=== PATIENT | female | born 1960 | race Caucasian/White ===

== ENCOUNTER → 2016-10-08 | Outpatient (CLI) | payer BC ==
[~2016-10-08] MED LIST: IMD/2 PO; ONDA4TAB10 SL; RQP/2 PO
--- NOTE | 2016-10-08 13:25 | MAMMOGRAPHY REPORT ---
BILATERAL DIGITAL SCREENING MAMMOGRAM TOMOSYNTHESIS WITH CAD: 10/08/2016 CLINICAL HISTORY: Routine screening. Patient has no complaints. TECHNIQUE: Breast tomosynthesis in addition to standard 2D mammography was performed. Current study was also evaluated with a Computer Aided Detection (CAD) system. COMPARISON: Comparison is made to exams dated: 02/11/2015 mammogram, 02/01/2013 mammogram, 02/20/2014 m ammogram, 02/14/2010 mammogram - [facility], and 09/20/2008. BREAST COMPOSITION: There are scattered areas of fibroglandular density in both breasts. FINDINGS: No suspicious masses, calcifications, or areas of architectural distortion are noted in e ither breast. There has been no significant interval change compared to prior exams. A biopsy marke r clip is again noted in the right upper outer quadrant. Benign-appearing round circumscribed mass in the left upper outer quadrant is stable compared to multiple prior exams. IMPRESSION: ACR BI-RADS CATEGORY 2: BENIGN There is no mammographic evidence of malignancy. A 1 year screening mammogram is recommended. The p atient will receive written notification of the results. Approximately 10% of breast cancers are not detected with mammography. A negative mammographic repor t should not delay biopsy if a clinically suggestive mass is present. Acacia Odonnell M.D. /:10/08/2016 07:46:56 Junk Dealer: Sia Blanc RT(R)(M), [facility] letter sent: Normal 1/2 BI-RADS Code: ACR BI-RADS Category 2: Benign
== END | disposition home or self-care (01) ==
LOC: C.MAMM 07:19
PROVIDERS: ATTEND Family Medicine
DX: Z12.31 Encounter for screening mammogram for malignant neoplasm of breast (principal)

== ENCOUNTER 2017-09-09 16:13 | Emergency (ER) | payer BC, OTHER ==
[~2017-09-09] VITALS: Ht 154.9 cm; Wt 83.1 kg
[~2017-09-09 16:13] MED LIST changes: -ONDA4TAB10 SL
[2017-09-09 16:24] VITALS: TEMP 36.8
[2017-09-09] MEDS ORDERED: KETOROLAC TROMETHAMINE 30 MG/ML VIAL IV STA (18:05)
[2017-09-09] MEDS ORDERED: ACETAMINOPHEN 500 MG TAB PO STA (18:05)
[2017-09-09] MEDS ORDERED: DiphenhydrAMINE HCL 50 MG/ML VIAL IV STA ×2 (18:06→18:56)
[2017-09-09] MEDS ORDERED: METOCLOPRAMIDE HCL INJ 5 MG/ML 2 ML VIAL IV. STA (18:06)
[2017-09-09] MEDS ORDERED: LISI-461 PO (18:10)
[2017-09-09] MEDS ORDERED: MULT-190 PO (18:11)
[2017-09-09] MEDS ORDERED: CALC500T83 PO (18:11)
[2017-09-09] MEDS ORDERED: ASCA500 PO (18:11)
[2017-09-09] MEDS ORDERED: OMEG10007 PO (18:11)
[2017-09-09] MEDS ORDERED: MULT-506 PO (18:11)
[2017-09-09] MEDS ORDERED: VITA1TAB4 PO (18:11)
[2017-09-09] MEDS ORDERED: CHOL1000 PO (18:11)
--- NOTE | 2017-09-09 18:30 | EMERGENCY ROOM VISIT NOTE ---
History Report prepared by El: Juju Gr Under the Supervision of: Dr. Renzo Estrada M.D. First contact with patient: 17:55 Chief Complaint: NEURO SYMPTOMS Stated Complaint: NUMBNESS IN LT SIDE FACE/HAND,CONGESTION HEAD PAIN History of Present Illness The patient is a 57 year old female with a past medical history of hypertension, restless leg syndrome, and migraines who presents to the ED with a cc of worsening neurological symptoms beginning yesterday morning. The patient states that she has had congestion for 10 days and taken Prednisone and a Z-pack. She reports that she started having numbness and tingling in her hands that has since moved to her face. She states that she called her PCP who told her to come to the ED to make sure she wasn't having a stroke. Positive neck pain, shortness of breath, bright light sensitivity with her vision, and heaviness in her chest. Negative chest pain, recent travel, history of a PE or DVT, smoking, and taking Aspirin. She notes a family history of stroke and coronary artery disease. Source of History: patient Onset: yesterday morning Position: other (global) Quality: other (neurological) Timing: worsening Associated Symptoms: + neck pain, + SOB, + numbness, No chest pain Note: The patient complains of tingling, congestion, bright light sensitivity with her vision, and heaviness in her chest. The patient denies recent travel, history of a PE or DVT, smoking, and taking Aspirin. Review of Systems See HPI for pertinent positives and negatives. A total of ten systems were reviewed and were otherwise negative. Past Medical & Surgical Medical Problems: (1) Hypertension (2) Migraine (3) Restless leg syndrome Surgical Problems: (1) History of delivery (2) Hx of tubal ligation Family History Cancer Diabetes mellitus Heart disease Hypertension Stroke Social History Smoking Status: Never Smoker Alcohol Use: none Marital Status: Housing Status: lives with significant other Occupation Status: employed Current/Historical Medications Scheduled Amoxicillin & Pot Clavulanate (Augmentin 875-125 mg), 1 TAB PO BID Ascorbic Acid (Vitamin C), 500 MG PO DAILY Calcium (Calcium), 500 MG PO DAILY Cholecalciferol (Vitamin D3), 1,000 INTER.UNIT PO DAILY Fish Oil ([place]-3), 1 CAP PO DAILY Lisinopril (Lisinopril), 10 MG PO QAM Multivitamin (Multivitamin), 1 TAB PO DAILY Ocuvite Preservision (Ocuvite Preservision), 1 TAB PO DAILY Ropinirole Hydrochloride (Requip), 2.5 MG PO HS Vitamin E (Vitamin E), 400 UNITS PO DAILY Allergies Coded Allergies: Sulfa Antibiotics (Unverified Allergy, Unknown, UNKNOWN, 09/09/17) Physical Exam Vital Signs Date Time Temp Pulse Resp B/P (MAP) Pulse Ox O2 Delivery O2 Flow Rate FiO2 09/09/17 21:35 79 18 117/74 100 Room Air 09/09/17 20:35 89 09/09/17 20:20 93 22 163/87 98 09/09/17 18:45 100 Room Air 09/09/17 18:43 80 20 144/109 100 Room Air 09/09/17 16:24 36.8 84 17 168/90 97 Room Air Physical Exam GENERAL: Awake, alert, well-appearing, NAD HENT: Normocephalic, atraumatic. EYES: Normal conjunctiva. Sclera non-icteric. NECK: Supple. No nuchal rigidity. FROM. RESPIRATORY: CTAB, no rhonchi, wheezing, crackles CARDIAC: RRR, no MRG ABDOMEN: Soft, NTND, BS+ MSK: No chest wall TTP, no LE edema NEURO: CN 2-12 intact, 5/5 upper and lower extremity strength, no dysmetria, no drift, good finger to nose, no sensory deficits. Trace tinging in left hand. SKIN: No rash or jaundice noted. Medical Decision & Procedures ER Provider Diagnostic Interpretation: Radiology results as stated below per my review and radiologist interpretation: CHEST ONE VIEW PORTABLE CLINICAL HISTORY: EVALUATE WEAKNESS COMPARISON STUDY: Chest radiograph June 29, 2016. FINDINGS: There is no pneumothorax or pleural effusion. There is no consolidation or evidence of pulmonary edema. Cardiomediastinal silhouette is unremarkable. IMPRESSION: No acute cardiopulmonary findings. Electronically signed by: Shreyas De Luna M.D. 09/09/2017 6:33 PM Dictated Date/Time: 09/09/2017 6:[address] OF THE HEAD WITHOUT CONTRAST CLINICAL HISTORY: Weakness. Left-sided numbness. COMPARISON STUDY: No previous studies for comparison. CT DOSE: 712.55 mGy.cm TECHNIQUE: Helical axial images of the head were obtained without IV contrast. Automated exposure control was utilized for the study. A dose lowering technique was utilized adhering to the principles of ALARA. FINDINGS: No acute intracranial hemorrhage, midline shift or mass effect is present. Brain volume is normal. The ventricular system is normal. The basilar cisterns are patent. There are no extra-axial collections. Freeman-white differentiation is maintained. There are no findings to suggest acute dural sinus thrombosis or acute territorial infarct. There are no significant calvarial abnormalities. Mastoid air cells are clear. There is moderate mucosal thickening of the bilateral maxillary sinuses with air-fluid levels. IMPRESSION: 1. No acute intracranial findings. 2. Bilateral maxillary sinusitis, possibly acute. Electronically signed by: Shreyas De Luna M.D. 09/09/2017 8:36 PM Dictated Date/Time: 09/09/2017 8:32 PM Laboratory Results 09/09/17 18:30 Red Blood Count 5.05, Mean Corpuscular Volume 85.5, Mean Corpuscular Hemoglobin 29.7, Mean Corpuscular Hemoglobin Concent 34.7, Mean Platelet Volume 10.4, Neutrophils (%) (Auto) 46.0, Lymphocytes (%) (Auto) 46.5, Monocytes (%) (Auto) 5.4, Eosinophils (%) (Auto) 1.2, Basophils (%) (Auto) 0.3, Neutrophils # (Auto) 4.55, Lymphocytes # (Auto) 4.61, Monocytes # (Auto) 0.54, Eosinophils # (Auto) 0.12, Basophils # (Auto) 0.03 09/09/17 18:30 Test 09/09/17 18:30 White Blood Count 9.91 K/uL (4.8-10.8) Red Blood Count 5.05 M/uL (4.2-5.4) Hemoglobin 15.0 g/dL (12.0-16.0) Hematocrit 43.2 % (37-47) Mean Corpuscular Volume 85.5 fL (80-100) Mean Corpuscular Hemoglobin 29.7 pg (25-34) Mean Corpuscular Hemoglobin Concent 34.7 g/dl (32-36) Platelet Count 270 K/uL (130-400) Mean Platelet Volume 10.4 fL (7.4-10.4) Neutrophils (%) (Auto) 46.0 % Lymphocytes (%) (Auto) 46.5 % Monocytes (%) (Auto) 5.4 % Eosinophils (%) (Auto) 1.2 % Basophils (%) (Auto) 0.3 % Neutrophils # (Auto) 4.55 K/uL (1.4-6.5) Lymphocytes # (Auto) 4.61 K/uL (1.2-3.4) Monocytes # (Auto) 0.54 K/uL (0.11-0.59) Eosinophils # (Auto) 0.12 K/uL (0-0.5) Basophils # (Auto) 0.03 K/uL (0-0.2) RDW Standard Deviation 42.1 fL (36.4-46.3) RDW Coefficient of Variation 13.6 % (11.5-14.5) Immature Granulocyte % (Auto) 0.6 % Immature Granulocyte # (Auto) 0.06 K/uL (0.00-0.02) Anion Gap 5.0 mmol/L (3-11) Est Creatinine Clear Calc Drug Dose 62.4 ml/min Estimated GFR () 75.6 Estimated GFR (Non- 65.2 BUN/Creatinine Ratio 18.0 (10-20) Calcium Level 10.0 mg/dl (8.5-10.1) Phosphorus Level 3.5 mg/dl (2.5-4.9) Magnesium Level 2.2 mg/dl (1.8-2.4) Troponin I < 0.015 ng/ml (0-0.045) Pro-B-Type Natriuretic Peptide 45 pg/ml (0-900) Lyme Disease IgG Antibody NEG (NEG) Lyme Disease IgM Antibody NEG (NEG) Laboratory results reviewed by me Medications Administered Medications (Trade) Dose Ordered Sig/Basil Route Start Time Stop Time Status Last Admin Dose Admin Ketorolac Tromethamine (Toradol Inj) 30 mg NOW STAT IV 09/09/17 18:05 09/09/17 18:07 DC 09/09/17 18:39 30 MG Acetaminophen (Tylenol Tab) 1,000 mg NOW STAT PO 09/09/17 18:05 09/09/17 18:07 DC 09/09/17 18:38 1,000 MG Diphenhydramine HCl (Benadryl Inj) 25 mg NOW STAT IV 09/09/17 18:06 09/09/17 18:07 DC 09/09/17 18:38 25 MG Metoclopramide HCl (Reglan Inj) 10 mg NOW STAT IV. 09/09/17 18:06 09/09/17 18:07 DC 09/09/17 18:39 10 MG Diphenhydramine HCl (Benadryl Inj) 25 mg NOW STAT IV 09/09/17 18:56 09/09/17 18:57 DC 09/09/17 19:01 25 MG Ropinirole HCl (Requip Tab) 1.5 mg ONE STAT PO 09/09/17 19:20 09/09/17 19:21 DC 09/09/17 19:45 1.5 MG Amoxicillin/ Clavulanate Potassium (Augmentin Tab) 875 mg NOW ONCE PO 09/09/17 21:00 09/09/17 21:01 DC 09/09/17 21:34 875 MG ECG Indication: SOB/dyspnea Rate (beats per minute): 100 Rhythm: normal sinus Findings: other (normal axis, normal intervals, no STS or TWI changes) Change: Patient's electrocardiogram interpreted by me. ED Course 1757: The patient was evaluated in room C12B. A complete history and physical exam was performed. 2104: I reevaluated the patient. Discussed results and discharge instructions: She verbalized understanding and agreement. The patient is ready for discharge. Medical Decision The patient is a 57 year old female with a past medical history of hypertension, restless leg syndrome, and migraines who presents to the ED with a cc of worsening neurological symptoms beginning yesterday morning. Differential diagnosis: Etiologies such as metabolic, infection, hypo/hyperglycemia, electrolyte abnormalities, cardiac sources, intracerebral event, toxicologic, neurologic, infections, reactive airway disease, pneumonia, pneumothorax, COPD, CHF, cardiac ischemia, pulmonary embolism, musculoskeletal, gastrointestinal, as well as others were entertained. Patient was seen and evaluated the bedside. Patient is a prior history of hypertension and was referred here given her complaints of tingling in her left face and left hand. Again upon further discussion the patient describes his tingling more so than numbness. Patient has had some sinus congestion. Patient recently completed a course of azithromycin and steroids. Patient did have blood work completed along with a CT of the brain. Patient did describe some right right sided chest discomfort. The patient has had some mild cough. Patient is a nonsmoker. Patient's blood work was fairly unremarkable. Patient' s CT brain showed that she did have some sinusitis. Patient's EKG is nonischemic and completely unremarkable with a negative troponin. Less likely ACS. I do not believe that the patient has a PE. I believe her history and physical exam are more consistent with an infectious etiology. Given the patient's sinusitis the patient was given a course of Augmentin here in the emergency department. Patient was told that she should follow-up with her primary care physician to discuss taking a baby aspirin. I do not believe that the patient has had a TIA or stroke given only the tingling and separate pain in that it's localized to the hand and in some parts of the left face. This may be somewhat related to the patient's congestion as she describes that it is mostly left-sided. Patient has a nonfocal neurologic exam otherwise. Patient was deemed suitable for outpatient follow-up and treatment this time. Patient was given strict follow-up, discharge, and return precautions. All questions were answered. Patient was deemed suitable for outpatient follow-up at this time. Patient agreed with the plan of care and was safely discharged home. The chart was completed utilizing [employer] Speech voice recognition software. Grammatical errors, random word insertions, pronoun errors, and incomplete sentences are an occasional consequence of this system due to software limitations, ambient noise, and hardware issues. Any formal questions or concerns about the content, text, or information contained within the body of this dictation should be directly addressed to the physician for clarification. Medication Reconcilliation Current Medication List: was personally reviewed by me Blood Pressure Screening Patient's blood pressure: Elevated blood pressure Blood pressure disposition: Elevated BP felt to be situational Impression Primary Impression: Sinusitis Additional Impressions: Bronchitis Tingling in extremities Tingling of face Scribe Attestation The scribe's documentation has been prepared under my direction and personally reviewed by me in its entirety. I confirm that the note above accurately reflects all work, treatment, procedures, and medical decision making performed by me. Departure Information Dispostion Home / Self-Care Prescriptions Amoxicillin & Pot Clavulanate (Augmentin 875-125 mg) 1 Tab Tab 1 TAB PO BID for 10 Days, #20 TAB Prov: Renzo Estrada M.D. 09/09/17 Referrals Newhouser, Luh M., D.O. (PCP) Forms HOME CARE DOCUMENTATION FORM, IMPORTANT VISIT INFORMATION, WORK / SCHOOL INSTRUCTIONS Patient Instructions ED Sinusitis Kelvin Alfaro, [facility] Additional Instructions Please return to the emergency department if you have worsening or recurrent symptoms not amenable to at-home treatment. Please call for a follow-up appointment with her primary care physician. Please take your medications as prescribed. If you have other concerns and/or complaints please feel free to also call your primary care physician's office or return the ED for further evaluation, management, and treatment. Please continue the [id number] medications for your congestion. Take your medications as prescribed. If taking an antibiotic consider taking a probiotic and/or eating yogurt, but at the least, please take with food as it can cause upset stomach. If culture results are not available at discharge, if they are positive for concern of infection, you will be informed of the results as soon as they are available. If you were seen between 11pm and 7AM all radiology reads will be re-read by our in house staff. If any major discrepancies are discovered, you will be notified. You have been examined and treated today on an emergency basis only. This is not a substitute for, or an effort to provide, complete comprehensive medical care. It is impossible to recognize and treat all injuries or illnesses in a single emergency department visit. It is therefore important that you follow up closely with [facility], your PCP, and/or your specialist(s). Call as soon as possible for an appointment. Thank you for your time and consideration. I look forward to speaking with you again soon. Please don't hesitate to call us if you have any questions. Problem Qualifiers Primary Impression: Sinusitis Sinusitis location: maxillary Chronicity: acute Recurrence: not specified as recurrent Qualified Codes: J01.00 - Acute maxillary sinusitis, unspecified
--- NOTE | 2017-09-09 18:34 | DIAGNOSTIC IMAGING REPORT ---
CHEST ONE VIEW PORTABLE CLINICAL HISTORY: EVALUATE WEAKNESS COMPARISON STUDY: Chest radiograph June 29, 2016. FINDINGS: There is no pneumothorax or pleural effusion. There is no consolidation or evidence of pulmonary edema. Cardiomediastinal silhouette is unremarkable. IMPRESSION: No acute cardiopulmonary findings. Electronically signed by: Shreyas De Luna M.D. 09/09/2017 6:33 PM Dictated Date/Time: 09/09/2017 6:32 PM
[2017-09-09 18:45] VITALS: O2SAT 100
[2017-09-09 18:48] LABS: BASO % 0.3 %; BASO ABS # 0.03 K/uL (0-0.2); EOS % 1.2 %; EOS ABS # 0.12 K/uL (0-0.5); HEMATOCRIT 43.2 % (37-47); IG# 0.06 K/uL (0.00-0.02); LYMPH % 46.5 %; LYMPH ABS # 4.61 K/uL (1.2-3.4); MEAN CELL VOLUME 85.5 fL (80-100); MEAN CORPUSCULAR HEMOGLOBIN 29.7 pg (25-34); MEAN CORPUSCULAR HGB CONC 34.7 g/dl (32-36); MEAN PLATELET VOLUME 10.4 fL (7.4-10.4); MONO % 5.4 %; MONO ABS # 0.54 K/uL (0.11-0.59); NEUT ABS # 4.55 K/uL (1.4-6.5); PLATELET COUNT 270 K/uL (130-400); RED CELL DISTRIBUTION WIDTH CV 13.6 % (11.5-14.5); RED CELL DISTRIBUTION WIDTH SD 42.1 fL (36.4-46.3); WHITE BLOOD COUNT 9.91 K/uL (4.8-10.8)
[2017-09-09 18:56] VITALS: Ht 154.9 cm; Wt 83.1 kg
[2017-09-09 19:08] LABS: BLOOD UREA NITROGEN 17 mg/dl (7-18); CARBON DIOXIDE 29 mmol/L (21-32); CREATININE 0.96 mg/dl (0.60-1.20); GLUCOSE 91 mg/dl (70-99); POTASSIUM 3.7 mmol/L (3.5-5.1); SODIUM 136 mmol/L (136-145)
[2017-09-09 19:13] LABS: PHOSPHORUS 3.5 mg/dl (2.5-4.9)
[2017-09-09] MEDS ORDERED: ROPINIROLE HCL 1 MG TAB PO STA (19:20)
--- NOTE | 2017-09-09 20:37 | DIAGNOSTIC IMAGING REPORT ---
CT OF THE HEAD WITHOUT CONTRAST CLINICAL HISTORY: Weakness. Left-sided numbness. COMPARISON STUDY: No previous studies for comparison. CT DOSE: 712.55 mGy.cm TECHNIQUE: Helical axial images of the head were obtained without IV contrast. Automated exposure control was utilized for the study. A dose lowering technique was utilized adhering to the principles of ALARA. FINDINGS: No acute intracranial hemorrhage, midline shift or mass effect is present. Brain volume is normal. The ventricular system is normal. The basilar cisterns are patent. There are no extra-axial collections. Freeman-white differentiation is maintained. There are no findings to suggest acute dural sinus thrombosis or acute territorial infarct. There are no significant calvarial abnormalities. Mastoid air cells are clear. There is moderate mucosal thickening of the bilateral maxillary sinuses with air-fluid levels. IMPRESSION: 1. No acute intracranial findings. 2. Bilateral maxillary sinusitis, possibly acute. Electronically signed by: Shreyas De Luna M.D. 09/09/2017 8:36 PM Dictated Date/Time: 09/09/2017 8:32 PM
[2017-09-09] MEDS ORDERED: AMOXICILLIN/CLAVULANATE TAB 875 MG TAB PO ONE (21:00)
[2017-09-09 21:35] VITALS: BP 117/74; PULSE 79; O2SAT 100
[2017-09-09] MEDS ORDERED: AMOX875T PO (21:52)
== END 2017-09-09 22:01 | disposition home or self-care (01) ==
LOC: C.EDB 16:14 → C.EDC 22:01
DX: J01.00 Acute maxillary sinusitis, unspecified (principal); J40 Bronchitis, not specified as acute or chronic; R20.2 Paresthesia of skin; I10 Essential (primary) hypertension; G43.909 Migraine, unspecified, not intractable, without status migrainosus; G25.81 Restless legs syndrome; Z98.51 Tubal ligation status; Z82.3 Family history of stroke; Z82.49 Family history of ischemic heart disease and other diseases of the circulatory system; Z83.3 Family history of diabetes mellitus

== ENCOUNTER → 2017-10-15 | Outpatient (CLI) | payer OTHER ==
[~2017-10-15] MED LIST changes: +ASCA500 PO; +CALC500T83 PO; +CHOL1000 PO; -IMD/2 PO; +LISI-461 PO; +MULT-190 PO; +MULT-506 PO; +OMEG10007 PO; +VITA1TAB4 PO
--- NOTE | 2017-10-15 13:53 | MAMMOGRAPHY REPORT ---
BILATERAL DIGITAL SCREENING MAMMOGRAM TOMOSYNTHESIS WITH CAD: 10/15/2017 CLINICAL HISTORY: Routine screening. Patient has no complaints. TECHNIQUE: Breast tomosynthesis in addition to standard 2D mammography was performed. Current study was also evaluated with a Computer Aided Detection (CAD) system. COMPARISON: Comparison is made to exams dated: 10/08/2016 mammogram, 02/11/2015 mammogram, 02/20/2014 ult rasound biopsy, 02/20/2014 ultrasound biopsy, 02/20/2014 mammogram, and 02/12/2014 mammogram - [facility]. BREAST COMPOSITION: There are scattered areas of fibroglandular density in both breasts. FINDINGS: No suspicious masses, calcifications, or areas of architectural distortion are noted in ei ther breast. There has been no significant interval change compared to prior exams. A biopsy marker clip is again noted in the right upper outer quadrant. Benign-appearing round circumscribed mass in the left upper outer quadrant is stable compared to multiple prior exams. IMPRESSION: ACR BI-RADS CATEGORY 2: BENIGN There is no mammographic evidence of malignancy. A 1 year screening mammogram is recommended. The pa tient will receive written notification of the results. Approximately 10% of breast cancers are not detected with mammography. A negative mammographic report should not delay biopsy if a clinically suggestive mass is present. Acacia Odonnell M.D. /:10/15/2017 07:42:15 Production Mechanic [employer]: Sia Hawk, [facility] letter sent: Normal 1/2 BI-RADS Code: ACR BI-RADS Category 2: Benign
== END | disposition home or self-care (01) ==
LOC: C.MAMM 07:21
PROVIDERS: ATTEND Family Medicine
DX: Z12.31 Encounter for screening mammogram for malignant neoplasm of breast (principal)

== ENCOUNTER → 2017-11-24 | Outpatient (CLI) | payer OTHER | END | disposition home or self-care (01) | LOC: C.PAPS 17:49 | PROVIDERS: ATTEND Obstetrics & Gynecology | DX: Z12.4 Encounter for screening for malignant neoplasm of cervix (principal) ==

== ENCOUNTER 2020-02-23 16:11 | Observation (INO) ==
[2020-02-23] MEDS ORDERED: SODIUM CHLORIDE 0.9% 1000ML 1,000 ML IV ONE (16:48)
--- NOTE | 2020-02-23 16:55 | Emergency Department Note ---
Impression & Plan Dizziness, Lightheadedness, Nausea, Facial paresthesia ED Provider Note NAME: HUE APONTE AGE: 59 SEX: F : 1960 ARRIVES VIA: Walk-In INFORMANT: Patient ED PROVIDER(S): Reji Cancino DO CHIEF COMPLAINT: Dizziness HPI: Patient is a 59-year-old female with past medical history of vertigo that presents the ER for dizziness. She notes that this has been going on for the past 7 days. She was seen here 2 days ago for the same symptoms. She notes she feels as though the room is spinning. The dizziness has been present consistently for the past 7 days. There is no exacerbating or remitting factors in regards to this. She notes that since around 6 AM this morning she has had new left-sided facial paresthesias. Since the symptoms started she feels as though she is drifting to the left. Her symptoms are worse recently. It does feel like her previous vertigo but significantly worsening. She has never had this feeling of drifting to the left. Over the past 48 hours she has also had increased urination. No dysuria. She admits to abdominal pain which is unchanged from when she had a CT 2 days ago. She still feels nauseated. No focal weakness or numbness. No loss of vision. She did have about 10 seconds of blurry vision bilaterally while she was staring at a computer but when she looked away from the computer completely resolved. She does believe that this is related to the screen time. ROS: See above HPI for pertinent positives & negatives. A total of 10 systems reviewed and were otherwise negative. PAST MEDICAL HISTORY:See Below PAST SURGICAL HISTORY:See Below FAMILY HISTORY:See Below SOCIAL HISTORY:See Below HOME MEDICATIONS:See Below ALLERGIES:See Below VITALS:See Below PHYSICAL EXAMINATION: GENERAL: Sitting up in bed, alert, well appearing, well nourished, no distress, non-toxic EYE EXAM: normal conjunctiva. PERRL and EOM's grossly intact. OROPHARYNX: no exudate, no erythema, lips, buccal mucosa, and tongue normal and mucous membranes are moist NECK: supple, no nuchal rigidity, no adenopathy, non-tender LUNGS: Clear to auscultation. Normal chest wall mechanics HEART: no murmurs, S1 normal and S2 normal ABDOMEN: abdomen soft, non-tender, normo-active bowel sounds, no masses, no rebound or guarding. BACK: Back is symmetrical on inspection and there is no deformity, no midline tenderness, no CVA tenderness. SKIN: no rashes and no bruising UPPER EXTREMITIES: upper extremities are grossly normal. LOWER EXTREMITIES: No pitting edema. NEURO EXAM: Normal sensorium, cranial nerves II-XII intact, normal speech, no weakness of arms, no weakness of legs. No drift. Finger to nose intact. Gross sensation intact. Ncms-oi-nuda intact. Rapid alternating movements of upper extremities intact. She ambulates while holding onto objects. MEDICAL DECISION MAKING: Patient is a 59-year-old female who presents the ER for dizziness, left-sided facial paresthesias as well as trouble ambulating and leaning towards the left. The majority of her symptoms have been going on for the past 7 days. IV was established blood work was obtained. Does have a history of vertigo but notes this feels slightly different in regards to leaning to the left and left-sided facial paresthesias. Labs show no significant leukocytosis or anemia. INR unremarkable. BMP with a slightly elevated BUN. LFTs bilirubin and magnesium were remarkable for bilirubin of 1.6. Troponin was negative. EKG unremarkable. CT as well as CT angios the head and neck were negative. Chest x-ray was unremarkable. She is given IV fluids. With the facial paresthesias and leaning to the left although she had an intact neuro exam recommended admission and observation. Triage Nursing notes reviewed. Prior medical records reviewed Vital Signs: reviewed and remarkable for hypertension Differential diagnosis: Differential Diagnosis includes but is not limited to ischemic Stroke, hemorrhagic stroke, bells palsy, mass, neoplasm, migraine headache, seizure, s ubarachnoid hemorrhage, TIA, and transient global amnesia. ER treatment provided: See below Diagnostics interpreted by me: ECG: Sinus rhythm rate 71 Normal axis No PVCs Normal QTC T WI in lead III Cardiac Monitoring: An order was placed for continuous cardiac monitoring. The monitor shows a rate of 80 with sinus rhythm. Laboratory studies: As stated above and show below. Imaging studies: CTs and CT angios as discussed above in the MDM Consultation(s): Discussed with hospitalist for observation. ED COURSE: Procedures: none Critical Care: None Past Med/Surg History Medical History (Updated 02/23/20 @ 22:18 by Josh Mathew MD) Heart murmur Hypertension (Chronic) Migraine Nausea vomiting and diarrhea (Acute) Restless leg syndrome Social History Feels Safe at Home: Yes Smoking Status: Never smoker Allergies Allergies Allergy/AdvReac Type Severity Reaction Status Date / Time Sulfa (Sulfonamide Allergy Intermediate Hives Verified 02/23/20 17:34 Antibiotics) diphenhydramine AdvReac Severe RESTLESS Verified 02/23/20 17:34 [From Benadryl] LEG FLARE UP Home Meds Home Medications Medication Instructions Recorded Confirmed ascorbic acid (vitamin C) [Vitamin 500 mg PO QAM 02/07/19 02/23/20 C] atorvastatin 10 mg PO QAM 02/07/19 02/23/20 calcium carbonate [Calcium 600] 600 mg PO QAM 02/07/19 02/23/20 cholecalciferol (vitamin D3) 1,000 unit PO QAM 02/07/19 02/23/20 [Vitamin D3] lisinopril-hydrochlorothiazide 1 tab PO QAM 02/07/19 02/23/20 multivitamin 1 tab PO QAM 02/07/19 02/23/20 omega 9-ghl-hdu-fish oil [Fish Oil] 1 cap PO QAM 02/07/19 02/23/20 pantoprazole 40 mg PO QAM 02/07/19 02/23/20 ropinirole 4 mg PO HS 02/07/19 02/23/20 vitamin B complex 1 tab PO QAM 02/07/19 02/23/20 vitamin E 400 unit PO QAM 02/07/19 02/23/20 Results & Data (ED) Vital Signs Vital Signs - 24 hr 02/23/20 16:22 02/23/20 18:52 02/23/20 20:12 Temperature 36.9 C Temperature Source Oral Pulse Rate 83 Pulse Rate [Right Finger] 82 88 Respiratory Rate 16 16 20 Respiratory Effort / Characteristics Non-Labored Spontaneous Respiratory Depth Normal Respiratory Pattern Regular Blood Pressure 141/87 H Blood Pressure [Left Arm] 93/82 L 147/93 H Blood Pressure Mean 105 Blood Pressure Mean [Left Arm] 85 111 Blood Pressure Position [Left Arm] Pulse Oximetry 98 99 98 Oxygen Delivery Method Room Air Sepsis Recent Fever Within 48 Hours No Sepsis New/Unexplained Change in Mental Status No Sepsis Action Taken by Nursing No Action Required 02/23/20 22:00 Temperature Temperature Source Pulse Rate Pulse Rate [Right Finger] 80 Respiratory Rate 15 Respiratory Effort / Characteristics Respiratory Depth Respiratory Pattern Blood Pressure Blood Pressure [Left Arm] 133/82 Blood Pressure Mean Blood Pressure Mean [Left Arm] 99 Blood Pressure Position [Left Arm] Lying Pulse Oximetry 95 Oxygen Delivery Method Room Air Sepsis Recent Fever Within 48 Hours Sepsis New/Unexplained Change in Mental Status Sepsis Action Taken by Nursing Laboratory Data Result diagrams: 02/23/20 17:41 02/23/20 17:41 Lab Results 02/23/20 02/23/20 02/23/20 Range/Units 17:08 17:41 17:41 WBC 8.85 (4.8-10.8) K/uL RBC 4.38 (4.2-5.4) M/uL Hgb 12.9 (12.0-16.0) g/dL Hct 37.2 (37-47) % MCV 84.9 (80-100) fL MCH 29.5 (25-34) pg MCHC 34.7 (32-36) g/dL RDW Std Deviation 41.5 (36.4-46.3) fL RDW Coeff of Melissa 13.3 (11.5-14.5) % Plt Count 212 (130-400) K/uL MPV 10.4 (7.4-10.4) fL Immature Gran % (Auto) 0.5 % Neut % (Auto) 61.0 % Lymph % (Auto) 29.3 % [place] % (Auto) 7.0 % Eos % (Auto) 1.9 % Baso % (Auto) 0.3 % Neut # (Auto) 5.40 (1.4-6.5) K/uL Lymph # (Auto) 2.59 (1.2-3.4) K/uL [place] # (Auto) 0.62 H (0.11-0.59) K/uL Eos # (Auto) 0.17 (0-0.5) K/uL Baso # (Auto) 0.03 (0-0.2) K/uL Immature Gran # (Auto) 0.04 H (0.00-0.02) K/uL PT 10.4 (9.0-12.0) Seconds INR 1.0 (0.9-1.1) APTT 23.4 (21.0-31.0) Seconds PTT Ratio 0.8 Sodium (136-145) mmol/L Potassium (3.5-5.1) mmol/L Chloride (98-107) mmol/L Carbon Dioxide (21-32) mmol/L Anion Gap (3-11) BUN (7-18) mg/dl Creatinine (0.6-1.2) mg/dl Est Cr Clr Drug Dosing ml/min Est GFR ( Amer) Est GFR (Non-Af Amer) BUN/Creatinine Ratio (10-20) Glucose (70-99) mg/dl POC Glucose 99 (70-99) mg/dl Calcium (8.5-10.1) mg/dl Magnesium (1.8-2.4) mg/dl Total Bilirubin (0.2-1) mg/dl AST (15-37) U/L ALT (12-78) U/L Alkaline Phosphatase (45-117) U/L Troponin I (0-0.045) ng/ml Total Protein (6.4-8.2) gm/dl Albumin (3.4-5.0) gm/dl Globulin (2.5-4.0) gm/dl Albumin/Globulin Ratio (0.9-2) 02/23/20 Range/Units 17:41 WBC (4.8-10.8) K/uL RBC (4.2-5.4) M/uL Hgb (12.0-16.0) g/dL Hct (37-47) % MCV (80-100) fL MCH (25-34) pg MCHC (32-36) g/dL RDW Std Deviation (36.4-46.3) fL RDW Coeff of Melissa (11.5-14.5) % Plt Count (130-400) K/uL MPV (7.4-10.4) fL Immature Gran % (Auto) % Neut % (Auto) % Lymph % (Auto) % [place] % (Auto) % Eos % (Auto) % Baso % (Auto) % Neut # (Auto) (1.4-6.5) K/uL Lymph # (Auto) (1.2-3.4) K/uL [place] # (Auto) (0.11-0.59) K/uL Eos # (Auto) (0-0.5) K/uL Baso # (Auto) (0-0.2) K/uL Immature Gran # (Auto) (0.00-0.02) K/uL PT (9.0-12.0) Seconds INR (0.9-1.1) APTT (21.0-31.0) Seconds PTT Ratio Sodium 141 (136-145) mmol/L Potassium 3.8 (3.5-5.1) mmol/L Chloride 105 (98-107) mmol/L Carbon Dioxide 29 (21-32) mmol/L Anion Gap 7.0 (3-11) BUN 22 H (7-18) mg/dl Creatinine 1.14 (0.6-1.2) mg/dl Est Cr Clr Drug Dosing 52.9 ml/min Est GFR ( Amer) 60.5 Est GFR (Non-Af Amer) 52.2 BUN/Creatinine Ratio 19.0 (10-20) Glucose 102 H (70-99) mg/dl POC Glucose (70-99) mg/dl Calcium 9.6 (8.5-10.1) mg/dl Magnesium 1.9 (1.8-2.4) mg/dl Total Bilirubin 1.6 H (0.2-1) mg/dl AST 22 (15-37) U/L ALT 53 (12-78) U/L Alkaline Phosphatase 85 (45-117) U/L Troponin I < 0.015 (0-0.045) ng/ml Total Protein 8.3 H (6.4-8.2) gm/dl Albumin 4.0 (3.4-5.0) gm/dl Globulin 4.3 H (2.5-4.0) gm/dl Albumin/Globulin Ratio 0.9 (0.9-2) Administered Medications Ioversol (Optiray 320 125ml) 119 ml IV ONCE PRN PRN Reason: Interaction Checking Stop: 02/27/20 18:41 Last Admin: 02/23/20 18:43 Dose: 119 ml Documented by: [id number] Discontinued Medications Aspirin (Aspirin Chew) 324 mg PO NOW STA Stop: 02/23/20 21:09 Last Admin: 02/23/20 22:12 Dose: 324 mg Documented by: [id number] Sodium Chloride (Nss 1000ml) 1,000 mls @ 999 mls/hr IV .Q1H1M ONE Stop: 02/23/20 17:48 Last Infusion: 02/23/20 18:31 Dose: 0 mls/hr Documented by: [id number] Admin: 02/23/20 17:30 Dose: 999 mls/hr Documented by: [id number] Tramadol HCl (Ultram) 25 mg PO NOW STA Stop: 02/23/20 21:09 Last Admin: 02/23/20 22:12 Dose: 25 mg Documented by: [id number] Discharge Plan Visit Data Chief Complaint: Illness Stated Complaint: LEFT SIDED DIZZINESS, PRESSURE, NUMBNESS ED Provider: Reji Cancino Discharge Problem: Dizziness, Lightheadedness, Nausea, Facial paresthesia Discharge Instructions Interventions: ED Discharge Assessment Last Done: 02/23/20 22:07 Forms Stand Alone Forms: [employer] [employer] Prescriptions Prescriptions: No Action atorvastatin 10 mg tablet 10 mg PO QAM RF: 0 pantoprazole 40 mg tablet,delayed release (DR/EC) 40 mg PO QAM RF: 0 lisinopril-hydrochlorothiazide 20-25 mg tablet 1 tab PO QAM RF: 0 multivitamin Tablet 1 tab PO QAM RF: 0 calcium carbonate [Calcium 600] 600 mg calcium (1,500 mg) Tablet 600 mg PO QAM RF: 0 ascorbic acid (vitamin C) [Vitamin C] 500 mg Tablet 500 mg PO QAM RF: 0 ropinirole 2 mg tablet 4 mg PO HS RF: 0 vitamin B complex Tablet 1 tab PO QAM RF: 0 vitamin E 400 unit Capsule 400 unit PO QAM RF: 0 cholecalciferol (vitamin D3) [Vitamin D3] 1,000 unit Capsule 1,000 unit PO QAM RF: 0 omega 9-rrh-fig-fish oil [Fish Oil] 1,000 mg (120 mg-180 mg) Capsule 1 cap PO QAM RF: 0 Referrals Referrals: Luh Gamble DO [Primary Care Provider] -
--- NOTE | 2020-02-23 17:37 | XRay Report ---
XR chest 1V portable HISTORY: 59 years-old Female dizzy acute dizziness COMPARISON: Chest radiograph 02/21/2020 TECHNIQUE: Portable AP view of the chest FINDINGS: Cardiomediastinal and hilar silhouettes are within normal limits. Ill-defined upper right paratrachea l opacity is likely projectional. There is no pneumothorax, pleural effusion, airspace consolidation or overt pulmonary edema. Bones of the chest appear grossly intact. IMPRESSION: No acute process. ACT 112: Negative or not required by law. The above report was generated using voice recognition software. It may contain grammatical, syntax o r spelling errors. Electronically signed by: Edmundo Solomon M.D. 02/23/2020 5:36 PM
[2020-02-23 17:49] LABS: Basophils # (auto) 0.03 K/uL (0-0.2); Basophils % (auto) 0.3 %; Eosinophils # (auto) 0.17 K/uL (0-0.5); Eosinophils % (auto) 1.9 %; Hematocrit (blood only) 37.2 % (37-47); Hemoglobin 12.9 g/dL (12.0-16.0); Immature Granulocytes # (auto) 0.04 K/uL (0.00-0.02); Immature Granulocytes % (auto) 0.5 %; Lymphocytes # (auto) 2.59 K/uL (1.2-3.4); Lymphocytes % (auto) 29.3 %; Mean Corpuscular Hemoglobin 29.5 pg (25-34); Mean Corpuscular Hgb Conc 34.7 g/dL (32-36); Mean Corpuscular Volume 84.9 fL (80-100); Mean Platelet Volume 10.4 fL (7.4-10.4); Monocytes # (auto) 0.62 K/uL (0.11-0.59); Platelet Count 212 K/uL (130-400); RDW Coefficient of Variation 13.3 % (11.5-14.5); RDW Standard Deviation 41.5 fL (36.4-46.3); Red Blood Count 4.38 M/uL (4.2-5.4); White Blood Count 8.85 K/uL (4.8-10.8)
[2020-02-23 18:00] LABS: Partial Thromboplastin Ratio 0.8; Partial Thromboplastin Time 23.4 Seconds (21.0-31.0); Prothrombin Time 10.4 Seconds (9.0-12.0)
[2020-02-23 18:10] LABS: Alanine Aminotransferase 53 U/L (12-78); Albumin Globulin Ratio 0.9 (0.9-2); Aspartate Aminotransferase 22 U/L (15-37); Bilirubin,Total 1.6 mg/dl (0.2-1); Blood Urea Nitrogen 22 mg/dl (7-18); Calcium 9.6 mg/dl (8.5-10.1); Carbon Dioxide 29 mmol/L (21-32); Chloride 105 mmol/L (98-107); Creatinine Clr Calc Pharmacy 52.9 ml/min; Est GFR (African American) 60.5; Est GFR (Non-African American) 52.2; Globulin 4.3 gm/dl (2.5-4.0); Glucose 102 mg/dl (70-99); Magnesium 1.9 mg/dl (1.8-2.4); Potassium 3.8 mmol/L (3.5-5.1); Sodium 141 mmol/L (136-145); Total Protein 8.3 gm/dl (6.4-8.2)
[2020-02-23 18:12] LABS: Alkaline Phosphatase 85 U/L (45-117); Troponin I < 0.015 ng/ml (0-0.045)
[2020-02-23] MEDS ORDERED: OPTIRAY 320 125ml IV PRN (18:42)
--- NOTE | 2020-02-23 19:04 | CT Scan Report ---
CT head/brain wo con CLINICAL HISTORY: 59 years-old Female with Stroke evaluation . Acute strokelike symptoms TECHNIQUE: Multiple axial CT images of the head were obtained without contrast. A dose lowering tech nique was utilized adhering to the principles of ALARA. CT DOSE: 1052.94 mGy.cm COMPARISON: Head CT 09/09/2017 FINDINGS: No acute intracranial hemorrhage, midline shift, intracranial mass, hydrocephalus, territorial ischem ia or abnormal extra-axial collection. Mild patchy white matter hypodensities suggest chronic microva scular ischemic disease. Ill-defined hypodensity of the left brachium pontis is likely artifactual. The calvarium is intact. The paranasal sinuses, mastoid air cells, and middle ear cavities are clear . IMPRESSION: No acute intracranial abnormality. ACT 112: Negative or not required by law. The above report was generated using voice recognition software. It may contain grammatical, syntax o r spelling errors. Electronically signed by: Edmundo Solomon M.D. 02/23/2020 7:03 PM
--- NOTE | 2020-02-23 19:13 | CT Scan Report ---
CT angio neck with con, CT angio head w con CLINICAL HISTORY: 59 years-old Female with Stroke evaluation. Acute strokelike symptoms COMPARISON STUDY: Head CT of same day TECHNIQUE: Following the IV administration of 119 mL of Optiray 320, CT angiogram of the head and nec k was performed from the aortic arch to the skull apex. Images are reviewed in the axial, sagittal, a nd coronal planes. 3-D MIPS images are created and assessed. IV contrast was administered without com plication. All measurements were calculated based on NASCET criteria. A dose lowering technique was utilized adhering to the principles of ALARA. FINDINGS: Three-vessel morphology of aortic arch. Patency of the imaged bilateral subclavian arteries. The inno minate artery and common carotid arteries appear normal and are patent. Minimal mixed plaque of the r ight carotid bulb without stenosis. The internal carotid arteries are widely patent and unremarkable. Minimal multifocal luminal narrowing of the middle cerebral arteries without high-grade stenosis. Th e anterior cerebral arteries are also patent. Diminutive right A1 segment, likely developmental. Codominant vertebral arteries are also widely patent. The majority of the bilateral vertebral arterie s terminate into the posterior inferior cerebellar arteries. Diminutive basilar artery is noted with origin of the bilateral posterior cerebral arteries. No aneurysm, dissection, high-grade stenos is or proximal branch occlusion. Cerebral venous sinuses are patent. Lung apices are clear. No pneumothorax. Soft tissues are unremarkable. Homogeneous thyroid. Patent ai rway. No abnormal intracranial enhancement identified. Bones appear intact. Multilevel vertebral spur ring and facet arthrosis. Mastoid air cells and paranasal sinuses are clear. Hypoplastic left frontal sinus. IMPRESSION:Unremarkable CTA of the head and neck without aneurysm, dissection, high-grade stenosis or proximal branch occlusion. ACT 112: Negative or not required by law. The above report was generated using voice recognition software. It may contain grammatical, syntax o r spelling errors. Electronically signed by: Edmundo Solomon M.D. 02/23/2020 7:12 PM
[2020-02-23] MEDS ORDERED: TRAMADOL HCL 50 MG TABLET PO STA (21:08)
[2020-02-23] MEDS ORDERED: ASPIRIN 81 MG CHEW PO STA (21:08)
--- NOTE | 2020-02-23 21:09 | History & Physical Report ---
Date of Service February 23, 2020 Assessment & Plan (1) Vertigo: Plus new L facial numbness symptoms Rule out CVA hypertension, slightly elevated hyperlipidemia, on statin Rx hypothyroidism Worsening LLE pain/swelling (L knee, L foot discomfort) Attributed to arthritic pain by PCP on outpatient visit 2 weeks ago. Some improvement with outpatient steroid course. restless leg syndrome as per records Rule out DVT OBS Medical telemetry Neurochecks MRI brain RE vertigo with left-sided facial numbness Aspirin for now for stroke prevention until stroke ruled out Continue home statin Rx, check lipid profile Permissive hypertension until acute stroke ruled out Plain x-rays of the left foot and left knee LLE venous Dopplers rule out DVT Orthopedics consult RE left knee pain, left foot pain DVT prophylaxis Lovenox subcu Full code Text document was generated using [employer] voice recognition software. It may contain grammatical or spelling errors. Kindly contact undersigned for clarification of any documentation item in question. History of Present Illness Chief Complaint: Vertigo, numbness left face Primary Care Provider: Luh Gamble DO History obtained from patient, family, and records. Medical history significant for hypertension, hyperlipidemia, hypothyroidism, restless leg syndrome as per records. Patient seen at PCPs office 2 weeks ago for left knee pain, left foot pain a few weeks duration. No recollection of recent trauma. Outpatient left knee x-ray showed moderate osteoarthritis medial compartment with marginal osteophyte formation and mild joint space narrowing. No knee joint effusion. No fracture or misalignment. Distal quadriceps enthesophyte. Some improvement with outpatient steroid course. 1 week history of vertigo symptoms described as spinning worse somewhat with head motion. Some sinus drainage without flulike symptoms. No chest pain, no S OB. Minimal abdominal discomfort without diarrhea/dysuria symptoms. No unusual stress at home. History of vertigo related to sinus infections as per patient. Patient seen at the ER [address] abdomen pelvis. Patient discharged home. Worsening vertigo symptoms today with patient leaning more to the left side as per her account. Some facial numbness on the left which is never happened before. No arm/leg weakness/numbness. Some left leg swelling with some worsening of left foot left knee pain complaints from 2 weeks ago. Medical History as above Surgical History : Shoulder surgery, breast biopsy, section, eye surgery, BTL Family History : Heart disease, stroke, colon cancer Personal/Social history : Non-smoker, no EtOH intake, [employer] employee Allergies Allergy/AdvReac Type Severity Reaction Status Date / Time Sulfa (Sulfonamide Allergy Intermediate Hives Verified 02/23/20 17:34 Antibiotics) diphenhydramine AdvReac Severe RESTLESS Verified 02/23/20 17:34 [From Benadryl] LEG FLARE UP Home Medications Home Medications Medication Instructions Recorded Confirmed Type ascorbic acid (vitamin C) [Vitamin 500 mg PO QAM 02/07/19 02/23/20 History C] atorvastatin 10 mg PO QAM 02/07/19 02/23/20 History calcium carbonate [Calcium 600] 600 mg PO QAM 02/07/19 02/23/20 History cholecalciferol (vitamin D3) 1,000 unit PO QAM 02/07/19 02/23/20 History [Vitamin D3] lisinopril-hydrochlorothiazide 1 tab PO QAM 02/07/19 02/23/20 History multivitamin 1 tab PO QAM 02/07/19 02/23/20 History omega 5-ihd-wxc-fish oil [Fish Oil] 1 cap PO QAM 02/07/19 02/23/20 History pantoprazole 40 mg PO QAM 02/07/19 02/23/20 History ropinirole 4 mg PO HS 02/07/19 02/23/20 History vitamin B complex 1 tab PO QAM 02/07/19 02/23/20 History vitamin E 400 unit PO QAM 02/07/19 02/23/20 History Past Med/Surg History Medical History (Updated 02/23/20 @ 22:18 by Josh Mathew MD) Heart murmur Hypertension (Chronic) Migraine Nausea vomiting and diarrhea (Acute) Restless leg syndrome Social History Preferred Language: Mauritanian Communication Ability: Effective Accounts Officer Required: No Beliefs That Will Affect Care: None Current Living Situation: Significant Other Current Living Situation Comment: Partner Guille Feels Safe at Home: Yes Safety Concerns: Feels Safe At This Time Smoking Status: Never smoker Hx Alcohol Use: No Hx Substance Use: No Review of Systems Review of Systems: As per HPI, all 10 systems reviewed, all other ROS negative Physical Exam Physical Exam: GENERAL: Comfortable, obese, slightly anxious, no respiratory distress SKIN: Normal color, warm HEENT: [place] palpebral conjunctivae, no ptosis, dry buccal mucosa NECK : Supple, short neck, no tenderness CHEST : CTA, no tenderness HEART : RRR, systolic murmur ABDOMEN: Some distention, nontender EXTREMITIES : Minimal bilateral LE swelling/tenderness, left knee tenderness, left mid plantar tenderness deformities noted NEUROLOGIC : Coherent, no facial asymmetry, no other gross focality Results & Data Results & Data ([facility]) Vital Signs (Past 12 Hours) Vital Signs Temp Pulse Pulse Resp BP BP Pulse Ox 02/23/20 20:12 88 20 147/93 H 98 02/23/20 18:52 82 16 93/82 L 99 02/23/20 16:22 36.9 C 83 16 141/87 H 98 Laboratory Results Laboratory Results WBC 8.85 K/uL (4.8-10.8) 02/23/20 17:41 RBC 4.38 M/uL (4.2-5.4) 02/23/20 17:41 Hgb 12.9 g/dL (12.0-16.0) 02/23/20 17:41 Hct 37.2 % (37-47) 02/23/20 17:41 MCV 84.9 fL (80-100) 02/23/20 17:41 MCH 29.5 pg (25-34) 02/23/20 17:41 MCHC 34.7 g/dL (32-36) 02/23/20 17:41 RDW Std Deviation 41.5 fL (36.4-46.3) 02/23/20 17:41 RDW Coeff of Melissa 13.3 % (11.5-14.5) 02/23/20 17:41 Plt Count 212 K/uL (130-400) 02/23/20 17:41 MPV 10.4 fL (7.4-10.4) 02/23/20 17:41 Immature Gran % (Auto) 0.5 % 02/23/20 17:41 Neut % (Auto) 61.0 % 02/23/20 17:41 Lymph % (Auto) 29.3 % 02/23/20 17:41 [place] % (Auto) 7.0 % 02/23/20 17:41 Eos % (Auto) 1.9 % 02/23/20 17:41 Baso % (Auto) 0.3 % 02/23/20 17:41 Neut # (Auto) 5.40 K/uL (1.4-6.5) 02/23/20 17:41 Lymph # (Auto) 2.59 K/uL (1.2-3.4) 02/23/20 17:41 [place] # (Auto) 0.62 K/uL (0.11-0.59) H 02/23/20 17:41 Eos # (Auto) 0.17 K/uL (0-0.5) 02/23/20 17:41 Baso # (Auto) 0.03 K/uL (0-0.2) 02/23/20 17:41 Immature Gran # (Auto) 0.04 K/uL (0.00-0.02) H 02/23/20 17:41 PT 10.4 Seconds (9.0-12.0) 02/23/20 17:41 INR 1.0 (0.9-1.1) 02/23/20 17:41 APTT 23.4 Seconds (21.0-31.0) 02/23/20 17:41 PTT Ratio 0.8 02/23/20 17:41 Sodium 141 mmol/L (136-145) 02/23/20 17:41 Potassium 3.8 mmol/L (3.5-5.1) 02/23/20 17:41 Chloride 105 mmol/L (98-107) 02/23/20 17:41 Carbon Dioxide 29 mmol/L (21-32) 02/23/20 17:41 Anion Gap 7.0 (3-11) 02/23/20 17:41 BUN 22 mg/dl (7-18) H 02/23/20 17:41 Creatinine 1.14 mg/dl (0.6-1.2) 02/23/20 17:41 Est Cr Clr Drug Dosing 52.9 ml/min 02/23/20 17:41 Est GFR ( Amer) 60.5 02/23/20 17:41 Est GFR (Non-Af Amer) 52.2 02/23/20 17:41 BUN/Creatinine Ratio 19.0 (10-20) 02/23/20 17:41 Glucose 102 mg/dl (70-99) H 02/23/20 17:41 POC Glucose 99 mg/dl (70-99) 02/23/20 17:08 Calcium 9.6 mg/dl (8.5-10.1) 02/23/20 17:41 Magnesium 1.9 mg/dl (1.8-2.4) 02/23/20 17:41 Total Bilirubin 1.6 mg/dl (0.2-1) H 02/23/20 17:41 AST 22 U/L (15-37) 02/23/20 17:41 ALT 53 U/L (12-78) 02/23/20 17:41 Alkaline Phosphatase 85 U/L (45-117) 02/23/20 17:41 Troponin I < 0.015 ng/ml (0-0.045) 02/23/20 17:41 Total Protein 8.3 gm/dl (6.4-8.2) H 02/23/20 17:41 Albumin 4.0 gm/dl (3.4-5.0) 02/23/20 17:41 Globulin 4.3 gm/dl (2.5-4.0) H 02/23/20 17:41 Albumin/Globulin Ratio 0.9 (0.9-2) 02/23/20 17:[address] head: No acute intracranial abnormality. CTA head and neck: Unremarkable CTA of the head and neck without aneurysm, dissection, high-grade stenosis or proximal branch occlusion. Chest x-ray : Cardiomediastinal and hilar silhouettes are within normal limits. Ill-defined upper right paratracheal opacity is likely projectional. There is no pneumothorax, pleural effusion, airspace consolidation or overt pulmonary edema. Bones of the chest appear grossly intact. EKG as per my interpretation : Rate 70, NSR, normal axis, no ischemia
[2020-02-23] MEDS ORDERED: PROMETHAZINE HCL 12.5 MG in SODIUM CHLORIDE 0.9% 50 ML IV PRN (22:36)
[2020-02-23] MEDS ORDERED: ACETAMINOPHEN 325 MG TAB PO PRN (22:36)
[2020-02-23] MEDS ORDERED: POTASSIUM CHLORIDE 20 MEQ TABCR PO STA (22:36)
[2020-02-23] MEDS ORDERED: LORazepam 0.25 MG/0.5 ML VIAL IV PRN (22:36)
[2020-02-23] MEDS ORDERED: TRAMADOL HCL 50 MG TABLET PO PRN (22:36)
[2020-02-23] MEDS ORDERED: MoRPHine SULFATE 4 MG/ML 1 ML CARP\\VIAL IV PRN (22:36)
[2020-02-23] MEDS ORDERED: LACTATED RINGER'S 1,000 ML IV ONE (22:36)
[2020-02-23] MEDS ORDERED: ROPINIROLE HCL 1 MG TABLET PO SCH (22:36)
[2020-02-23 23:29] LABS: Creatine Kinase 61 U/L (26-192)
[2020-02-24] LABS: Appearance Urine Clear (Clear); Bacteria Urine Automated Negative (Negative); Bilirubin Urine Negative (Negative); Blood Urine Negative (Negative); Color Urine Yellow; Epithelial Cell Urine Auto 20-30 /lpf (0-5); Glucose Urine UA Negative (Negative); Ketones Urine Negative (Negative); Leukocyte Esterase Urine 1+ (Negative); Nitrite Urine Negative (Negative); Protein Urine Negative (Negative); RBC Urine Automated 0-4 /hpf (0-4); Urobilinogen Urine Negative (Negative); pH Urine 5.5 (4.5-7.5)
[2020-02-24] MEDS ORDERED: PANTOprazole 40 MG TAB PO SCH ×2 (06:30→09:00)
--- NOTE | 2020-02-24 07:59 | Ultrasound Report ---
LEFT LOWER EXTREMITY VENOUS DOPPLER HISTORY: Left leg pain. COMPARISON STUDY: Venous Doppler 02/07/2019. FINDINGS: There is normal compressibility, flow, and augmentation within the left lower extremity teto p venous system. IMPRESSION: No DVT within the left lower extremity. ACT 112: Negative or not required by law. Electronically signed by: Wilmer Hatch M.D. 02/24/2020 7:58 AM
[2020-02-24 08:03] LABS: Basophils # (auto) 0.03 K/uL (0-0.2); Basophils % (auto) 0.5 %; Eosinophils # (auto) 0.12 K/uL (0-0.5); Eosinophils % (auto) 1.8 %; Hematocrit (blood only) 34.5 % (37-47); Hemoglobin 11.6 g/dL (12.0-16.0); Immature Granulocytes # (auto) 0.01 K/uL (0.00-0.02); Immature Granulocytes % (auto) 0.2 %; Lymphocytes # (auto) 2.26 K/uL (1.2-3.4); Mean Corpuscular Hemoglobin 28.8 pg (25-34); Mean Corpuscular Hgb Conc 33.6 g/dL (32-36); Mean Corpuscular Volume 85.6 fL (80-100); Mean Platelet Volume 10.5 fL (7.4-10.4); Monocytes # (auto) 0.61 K/uL (0.11-0.59); Monocytes % (auto) 9.2 %; Neutrophils # (auto) 3.62 K/uL (1.4-6.5); Neutrophils % (auto) 54.3 %; Platelet Count 197 K/uL (130-400); RDW Coefficient of Variation 13.5 % (11.5-14.5); RDW Standard Deviation 42.7 fL (36.4-46.3); Red Blood Count 4.03 M/uL (4.2-5.4); White Blood Count 6.65 K/uL (4.8-10.8)
[2020-02-24 08:32] LABS: BUN Creatinine Ratio 20.3 (10-20); Creatinine Clr Calc Pharmacy 62.9 ml/min; Est GFR (African American) 76.4; Est GFR (Non-African American) 65.9; Potassium 3.9 mmol/L (3.5-5.1)
--- NOTE | 2020-02-24 08:35 | Orthopedic Consultation ---
Date of Consultation February 24, 2020 Assessment & Plan (1) Left knee DJD: Treatment options were discussed with the patient. She may benefit from intra-articular steroid injection versus Visco supplementation injections of the knee. This may be done on outpatient basis. I am not sure of any correlation between palpation of her tibial tubercle and the corresponding pain on the plantar surface of her foot. She has a history of GERD but may benefit from use of an NSAID as well as Tylenol. Ice and elevation may also be used as comfort dictates. Follow-up with Dr. Serrano's office or our office as she desires. (2) Left foot pain: Likelihood of tight plantar fascial was discussed. New films of the left foot were ordered. These will be reviewed later today. Patient may benefit from physical therapy to improve the flexibility of her heel cord and plantar fascia. She may also benefit from orthotic inserts given her high arch. Conservative care including NSAIDs, Tylenol, and ice may also be of benefit. We will continue to follow her while in the hospital. Follow-up with Dr. Serrano's office or our office as she desires. Care plan was discussed with Dr. Ashley, who was involved in this patient's care. History of Present Illness Reason for Consultation: Left knee and left foot pain Requesting Physician: Dr. Santos Attending Physician: Beni Kelsey MD History of Present Illness This 59-year-old white female is seen for orthopedic consultation regarding her left knee and left foot. Patient states the left knee has been bothering her for over a year. She was actually seen in the ED in February 2019 for left knee and left foot pain. Patient states over the last 2 weeks her left knee and foot pain have become worse. She was seen by her PCP approximately 2 weeks ago. She was placed on a short course of oral prednisone which did improve her symptoms somewhat. Pain is worse with ambulation as well as with touch. She notes that when she touches the front of the leg, she develops pain in the plantar surface of her foot. She does admit to occasional back pain. It does not seem to correlate with the flare in her knee and foot. She denies any numbness or tingling. She does note that the left knee occasionally becomes swollen. No catching, locking, or buckling. It does not give way. She does normally see Dr. Serrano from [facility] orth[facility]. She has received a cortisone injection in her right knee from him approximately 1 year ago and received left shoulder surgery approximately 5 years ago. Allergies Allergy/AdvReac Type Severity Reaction Status Date / Time Sulfa (Sulfonamide Allergy Intermediate Hives Verified 02/23/20 17:34 Antibiotics) diphenhydramine AdvReac Severe RESTLESS Verified 02/23/20 17:34 [From Benadryl] LEG FLARE UP Home Medications Home Medications Medication Instructions Recorded Confirmed Type ascorbic acid (vitamin C) [Vitamin 500 mg PO QAM 02/07/19 02/23/20 History C] atorvastatin 10 mg PO QAM 02/07/19 02/23/20 History calcium carbonate [Calcium 600] 600 mg PO QAM 02/07/19 02/23/20 History cholecalciferol (vitamin D3) 1,000 unit PO QAM 02/07/19 02/23/20 History [Vitamin D3] lisinopril-hydrochlorothiazide 1 tab PO QAM 02/07/19 02/23/20 History multivitamin 1 tab PO QAM 02/07/19 02/23/20 History omega 4-[id number]-gpr-fish oil [Fish Oil] 1 cap PO QAM 02/07/19 02/23/20 History pantoprazole 40 mg PO QAM 02/07/19 02/23/20 History ropinirole 4 mg PO HS 02/07/19 02/23/20 History vitamin B complex 1 tab PO QAM 02/07/19 02/23/20 History vitamin E 400 unit PO QAM 02/07/19 02/23/20 History Patient History Medical History Heart murmur Hypertension (Chronic) Migraine Nausea vomiting and diarrhea (Acute) Restless leg syndrome Social History Preferred Language: Angolan Communication Ability: Effective 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 Physical Exam Physical Exam: General: Well-developed, well-nourished, obese middle-aged white female, laying in bed. Alert and oriented. Eating breakfast. No acute distress. Skin: Warm and dry with good turgor. No rashes or lesions. No ecchymosis or erythema. The patient is not diaphoretic. No abrasions. No significant intra-articular effusion. Musculoskeletal: Left knee evaluation reveals stable cruciate and collateral ligaments. No laxity. She has focal discomfort with palpation over the medial and lateral joint lines. There is both medial and lateral discomfort with circumduction testing. She describes pain with palpation over the lateral border of the patella. She also has pain over the tibial tubercle. Palpation at the tibial tubercle also generates pain on the plantar surface of her foot. There is no significant discomfort with palpation in the popliteal fossa, over the gastroc heads, or the tibialis anterior muscle belly. She has discomfort with palpation over the lateral malleolus of the ankle but not the medial malleolus. No defect in the Achilles tendon by palpation. Normal Whittaker test. She has diffuse discomfort with palpation over the plantar surface of her foot. This extends across the entire plantar fascia and into the metatarsal heads. No pain with palpation over her calcaneal pad. No pain with palpation of the toes. She has intact motor function of the hip, knee, ankle, and toes. Strength is 5/5 for resisted dorsiflexion and plantarflexion of the toes and ankle. No pain with palpation over the fifth metatarsal base. Neurologic: Gross sensation is intact across all aspects of the left leg by soft touch. Peripheral pulses are 2+. Results & Data ([facility]) Vital Signs (Past 12 Hours) Vital Signs Temp Pulse Pulse Resp BP Pulse Ox 02/24/20 08:10 36.7 C 68 18 106/70 96 02/24/20 07:22 87 02/24/20 04:43 36.7 C 68 18 106/70 95 02/24/20 04:42 36.5 C 75 20 106/66 96 02/24/20 01:03 59 L 02/23/20 22:39 36.9 C 80 18 126/85 96 02/23/20 22:00 80 15 133/82 95 Diagnostic Findings Radiographic imaging obtained previously of the left knee was reviewed. She has mild to moderate arthritic changes with some narrowing of the joint space both medially and laterally. No significant spurring. No evidence of fracture. No evidence of loose bodies.
--- NOTE | 2020-02-24 08:55 | XRay Report ---
LEFT KNEE 3 VIEWS HISTORY: L knee pain COMPARISON: Left knee 02/07/2019. FINDINGS: There is no fracture or dislocation. Soft tissues are unremarkable. No radiopaque foreign b odies. No knee effusion. IMPRESSION: No fractures. ACT 112: Negative or not required by law. Electronically signed by: Wilmer Hatch M.D. 02/24/2020 8:54 AM
--- NOTE | 2020-02-24 08:58 | XRay Report ---
LEFT FOOT 3 VIEWS HISTORY: LEFT FOOT PAIN COMPARISON: Left foot 02/07/2019. FINDINGS: There is no fracture or dislocation. Soft tissues are unremarkable. No radiopaque foreign b odies. Plantar and posterior calcaneal spurs are noted. Mild flexion deformities within the second th rough fifth toes. Mild to moderate osteoarthritis within the DIP and PIP joints, unchanged. IMPRESSION: 1. No fractures within the left foot. 2. Mild to moderate degenerative changes within the toes. This remains unchanged. ACT 112: Negative or not required by law. Electronically signed by: Wilmer Hatch M.D. 02/24/2020 8:56 AM
[2020-02-24] MEDS ORDERED: ASPIRIN 81 MG ECTAB PO SCH (09:00)
[2020-02-24] MEDS ORDERED: VITAMIN B COMPLEX TAB PO SCH (09:00)
[2020-02-24] MEDS ORDERED: MULTIVITAMIN TAB PO SCH (09:00)
[2020-02-24] MEDS ORDERED: ATORVASTATIN 10 MG TAB PO SCH (09:00)
[2020-02-24] MEDS ORDERED: ENOXAPARIN INJ 40 MG/0.4 ML SYR SQ SCH (09:00)
--- NOTE | 2020-02-24 10:04 | Progress Notes ---
DATE: 02/24/2020 We were consulted to see the patient regarding a left knee and foot pain. Her knee x-rays are negative. Foot x-rays are ordered. She was seen in conjunction with Jaime Paredes, who is physician's assistant paralegal. For further details, refer to his dictation. He and I saw and evaluated together and I am in agreement with the plan. At this time, we are recommending conservative measures and possible injection as an outpatient.
--- NOTE | 2020-02-24 10:08 | XRay Report ---
XR foot LT min 3V routine CLINICAL HISTORY: left foot pain COMPARISON: Foot radiographs February 07, 2019 and February 23, 2020. FINDINGS: Alignment of the left foot is anatomic. Tarsometatarsal joints are intact. No fracture or osseous lesion within the left foot is identified. There is mild posterior and plantar calcaneal spur ring. Mild osteoarthritis within multiple articulations of the toes is noted. IMPRESSION: 1. No acute fracture or dislocation within the left foot. 2. Mild posterior and plantar calcaneal spurring. ACT 112: Negative or not required by law. Electronically signed by: Shreyas De Luna M.D. 02/24/2020 10:07 AM
--- NOTE | 2020-02-24 11:16 | Consultation Report ---
DATE OF CONSULTATION: 02/24/2020 REASON FOR CONSULTATION: Vertigo, facial numbness. HISTORY OF PRESENT ILLNESS: The patient is a 59-year-old right-handed female with hypertension, hyperlipidemia and restless legs. She has a remote history of vertigo with change in position without neurologic symptoms. For the last 1 week, she has had brief whirls of vertigo associated with change in position. On the day of admission, she noted vertigo, a tendency to lean to the left and numbness in her left face. The numbness has persisted. There were no ear symptoms other than some pain underneath the left ear. No hearing loss, ear pressure or ringing. No vesicles were noted on the ears. No hyperacusis was noted or loss of sense of taste. There was no diplopia, dysarthria, facial droop, unilateral weakness or numbness other than mentioned above. As noted, she had a tendency to veer to the left. Symptoms are persistent, although vertigo was somewhat improved. She has otherwise been reasonably well. 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 The hands were mildly painful, although not markedly so. She has had some mild sore throat and sinus drainage. She has not had any recent head or neck injury, chiropractic manipulation of the neck. She has had some persistent nausea. No chest pain, palpitation, shortness of breath. PAST MEDICAL HISTORY: As above. PAST SURGICAL HISTORY: Left shoulder surgery, breast biopsy, , bilateral tubal ligation, cataract surgery. FAMILY HISTORY: Brother had a stroke in his 50s. Father had an SC and a stroke at 59. SOCIAL HISTORY: Nonsmoker, nondrinker. The patient is a [employer] employee. ALLERGIES: SULFA WHICH CAUSED HIVES AND BENADRYL WHICH CAUSED RESTLESS LEGS. HOME MEDICATIONS: Ascorbic acid, atorvastatin, calcium, vitamin D3, lisinopril/HCTZ, multivitamin, omega-3 fish oil, pantoprazole, ropinirole 4 mg at bedtime, vitamin D, vitamin E. LABORATORY DATA: On admission are notable for a normal white count, H and H, and platelet count. PT, PTT are unremarkable. Chemistry notable for BUN of 22, nonfasting glucose 102. Total bilirubin 1.6, total protein 8.3. Triglycerides 165, total cholesterol 152, HDL 57. Urinalysis notable for 1+ leukocyte esterase, 5-10 white cells, 20-30 epithelial cells. COVID-19 is negative. IMAGING STUDY: CT of the head shows no acute intracranial abnormality, mild patchy white matter hypodensities suggest chronic microvascular ischemic change, ill-defined density in the left brachium pontis is likely artifactual. CTA of head and neck are unremarkable showing no evidence of dissection, high-grade stenosis or proximal branch occlusion. The basilar artery is diminutive with a origin of bilateral assistant spa manager. PHYSICAL EXAMINATION: VITAL SIGNS: 36.7, 68, 18, 106/70 and pulse ox 96%. GENERAL: The patient is awake and alert. Speech and language are normal. Affect is appropriate. HEENT: The external ear appears unremarkable. No vesicles are noted. There is no periauricular tenderness or swelling noted. NECK: There are no carotid bruits. No vertebral bruits. HEART: No heart murmurs. Heart is regular rate and rhythm. EXTREMITIES: Radial pulses are palpable and symmetric. Nodules are noted at the first interphalangeal joints in both hands bilaterally. NEUROLOGIC: Pupils are postsurgical. Optic nerves difficult to visualize. Normal lyles and motility. No nystagmus. Normal facial sensation. Corneal response, facial symmetry, eye closure, brow elevation are symmetric. Tongue is midline. Gag is intact bilaterally. Sternocleidomastoid, trapezius are full. Activation of the platysma appears full as well. There is no resting tremor, cogwheel rigidity. There is full strength, no drift. Normal rapid alternating movements. Prtbew-gf-tzci and hfzg-[id number] are normal. Reflexes are symmetric. Toes are downgoing. No dysdiadochokinesia. Gait is unremarkable. Romberg is negative. Calvert lateralizes to the left ear. Air conduction is greater than bone conduction. Gross hearing is symmetric. Gait is normal. Romberg is negative. Tandem is mildly unsteady, although not inappropriate for age. Provocative head maneuvers with head hanging to the right reproduce her symptoms with latency and fatigability, but no abnormality of eye movement. IMPRESSION: This patient speaks of a prior history of positional vertigo and this episode has been a positional vertigo; however, she speaks of left facial numbness, which raises the question whether or not this may represent a brainstem infarction. PLAN: MRI of the brain with and without contrast. Agree with antiplatelet therapy with aspirin and vascular workup at present. I was considering using Antivert, but it may exacerbate her restless legs. In the interim, I demonstrated labyrinthine exercises. It is of some concern that she has been complaining of new joint pain. The nodules, I believed to be osteoarthritic. I have ordered a Lyme titer, a rheumatoid factor and RITO, sed rate. Consider Rheumatology consultation. We will follow with you VALE
[2020-02-24] MEDS ORDERED: GADOBUTROL 65ML VIAL IV PRN (11:27)
--- NOTE | 2020-02-24 12:21 | Magnetic Resonance Report ---
MRI OF THE BRAIN INTERNAL AUDITORY CANAL PROTOCOL CLINICAL HISTORY: vertigo, left facial numbness, include iacs COMPARISON STUDY: Head CT and CTA of the head February 23, 2020. TECHNIQUE: Utilizing a 1.5 Dahlia magnet and dedicated coil, multiplanar, multiecho imaging of the br ain was performed pre and postcontrast administration with thin cut imaging through the internal diallo tory canals. IV administration of 8 mL of Gadavist contrast was uneventful. FINDINGS: There are no foci of restricted diffusion to suggest acute infarct. No acute intracranial h emorrhage, midline shift or mass effect is present. Brain volume is normal. Ventricular system is nor mal. The basilar cisterns are patent. There are no extra-axial collections. There is no intracranial mass or pathologic enhancement. There is no mass or abnormal enhancement within the internal auditory canals. Ventricular system is normal. Minimal white matter T2 hyperintensity suggest mild small vess el disease. Arterial signals normal. Orbits are unremarkable. Sinuses are unremarkable. There is no m astoid effusion. IMPRESSION: 1. No acute intracranial findings. 2. No abnormality within the internal auditory canals. 3. No intracranial mass or pathologic enhancement. ACT 112: Negative or not required by law. Electronically signed by: Shreyas De Luna M.D. 02/24/2020 12:20 PM
[2020-02-24] MEDS ORDERED: MECLIZINE HCL 25 MG TAB PO STA (12:54)
[2020-02-24] MEDS ORDERED: FLUTICASONE PROPIONATE NA SPR 16 GM BTL SCH (13:00)
[2020-02-24] MEDS ORDERED: FLUCONAZOLE 50 MG TAB PO ONE (13:47)
[2020-02-24] MEDS: AMOXICILLIN/CLAVULANATE 875 MG TAB PO SCH ×2 (13:53→18:06)
[2020-02-24 14:13] LABS: Lyme Ab IgG w/WB Rflx Negative (Negative); Lyme Ab IgM w/WB Rflx Negative (Negative)
--- NOTE | 2020-02-24 18:24 | Hospitalist Progress Note ---
Date of Service February 24, 2020 Assessment & Plan (1) Vertigo: Plus new L facial numbness symptoms Rule out CVA hypertension, slightly elevated hyperlipidemia, on statin Rx hypothyroidism Worsening LLE pain/swelling (L knee, L foot discomfort) Attributed to arthritic pain by PCP on outpatient visit 2 weeks ago. Some improvement with outpatient steroid course. restless leg syndrome as per records Rule out DVT OBS Medical telemetry Neurochecks MRI brain RE vertigo with left-sided facial numbness Aspirin for now for stroke prevention until stroke ruled out Continue home statin Rx, check lipid profile Permissive hypertension until acute stroke ruled out Plain x-rays of the left foot and left knee LLE venous Dopplers rule out DVT Orthopedics consult RE left knee pain, left foot pain DVT prophylaxis Lovenox subcu Full code Text document was generated using [employer] voice recognition software. It may contain grammatical or spelling errors. Kindly contact undersigned for clarification of any documentation item in question. (2) Dizziness: Dizziness likely secondary to positional vertigo, acute CVA ruled out Patient reported dizziness with some left-sided facial numbness Brain MRI: IMPRESSION: 1. No acute intracranial findings. 2. No abnormality within the internal auditory canals. 3. No intracranial mass or pathologic enhancement. CT angiogram head and neck: IMPRESSION:Unremarkable CTA of the head and neck without aneurysm, dissection, high-grade stenosis or proximal branch occlusion. Evaluated by neurologist Dr. Linda Nicole Symptoms felt to be secondary to positional vertigo, labyrinthine exercises demonstrated PRN meclizine recommended Possible rhinitis, sinusitis Trial of Augmentin total of 5 days And fluticasone spray Follow-up with PCP next week Hypertension Blood pressure on the low side while admitted, systolic low 100s Possibly contributing to dizziness Recommend to discontinue lisinopril hydrochlorothiazide for now Patient advised to monitor blood pressure daily, and resume above medication if blood pressure is 140/90 or above Follow-up with PCP next week Left knee pain, likely secondary to degenerative joint disease Knee x-ray: FINDINGS: There is no fracture or dislocation. Soft tissues are unremarkable. No radiopaque foreign bodies. No knee effusion. IMPRESSION: No fractures. Foot x-ray: 1. No acute fracture or dislocation within the left foot. 2. Mild posterior and plantar calcaneal spurring. Evaluated by orthopedic service care of Dr. Clyde Ashley Possible intra-articular steroid injection versus Visco supplementation injection of the knee as an outpatient Also evaluated for left foot pain likely secondary to tight plantar fascia Conservative measures recommended at this point Follow-up with Dr. Clyde Ashley in 1 to 2 weeks Left knee pain, hand nodules Rheumatoid factor, RITO studies pending Lyme screen negative ESR negative Consider referral to wrapper and preserver as an outpatient Disposition Discharge to home today Follow-up with PCP in 1 week Follow-up with Ortho in 1 to 2 weeks Consider referral to wrapper and preserver Plan of care discussed with patient and her at the bedside in detail and at length All questions were answered She is understanding, agreeable, comfortable with the plan of care Admission and Anticipated Discharge Date Admission Date: February 23, 2020 Subjective Follow-up for vertigo, left knee pain Seen sitting up in bed, not in distress, comfortable, in good spirits States she still has mild dizziness, but left-sided facial numbness/tingling is improving No other focal neurologic deficits States left knee pain is manageable Reports left-sided sinus pressure, and postnasal drip Denies ear problems, sore throat, no dysphasia, no trismus No other symptoms Reevaluated later in the afternoon States she feels much better after meclizine, and fluticasone nasal spray States she is ready and would like to be discharged today Review of Systems Review of Systems: All systems reviewed & are unremarkable except as noted in HPI & below Physical Exam Physical Exam: General- oriented x 3, not in distress, speaks in sentences with no effort or accessory muscle use Head- atraumatic Eyes- PERRL, EOMI, anicteric ENT- oropharynx clear Face-very mild edema left lower face, no erythema/warmth/tenderness Neck- supple, no JVD, no adenopathy, no thyromegaly; carotids +2/2, no bruits appreciated Lungs- clear to auscultation bilaterally, no rales/wheezes Heart- normal rate, regular rhythm; no murmur, no gallop, no rub appreciated Abdomen- normal bowel sounds, nondistended, soft, nontender, no masses or hepatosplenomegaly Extremities- no pretibial edema, no calf tenderness; peripheral pulses intact Left knee: Mild edema, no warmth/erythema/tenderness Neuro- alert, oriented x 3; CN 2-12 grossly intact; motor 5/5 bilaterally;sensation 100% on all extremities; no other gross focal neurologic deficits Skin- warm & dry Results & Data Results & Data ([facility]) Vital Signs (Past 12 Hours) Vital Signs Temp Pulse Pulse Resp BP Pulse Ox 02/24/20 18:15 62 02/24/20 18:13 36.7 C 75 18 92/58 L 97 02/24/20 15:34 36.7 C 75 18 92/58 L 97 02/24/20 12:11 36.6 C 69 18 116/76 97 02/24/20 08:10 36.7 C 68 18 106/70 96 02/24/20 07:22 87 Laboratory Results Laboratory Results - last 24 hr 02/23/20 02/23/20 02/24/20 17:41 23:35 00:35 WBC RBC Hgb Hct MCV MCH MCHC RDW Std Deviation RDW Coeff of Melissa Plt Count MPV Immature Gran % (Auto) Neut % (Auto) Lymph % (Auto) [place] % (Auto) Eos % (Auto) Baso % (Auto) Neut # (Auto) Lymph # (Auto) [place] # (Auto) Eos # (Auto) Baso # (Auto) Immature Gran # (Auto) ESR Sodium Potassium Chloride Carbon Dioxide Anion Gap BUN Creatinine Est Cr Clr Drug Dosing Est GFR ( Amer) Est GFR (Non-Af Amer) BUN/Creatinine Ratio Glucose Calcium Total Creatine Kinase 61 Triglycerides Cholesterol LDL Cholesterol, Calc VLDL Cholesterol, Calc HDL Cholesterol Cholesterol/HDL Ratio Urine Color Yellow Urine Appearance Clear Urine pH 5.5 Ur Specific [place] 1.040 H Urine Protein Negative Urine Glucose (UA) Negative Urine Ketones Negative Urine Blood Negative Urine Nitrite Negative Urine Bilirubin Negative Urine Urobilinogen Negative Ur Leukocyte Esterase 1+ H Urine WBC (Auto) 5-10 H Urine RBC (Auto) 0-4 U Hyaline Cast (Auto) 1-5 U Epithel Cells (Auto) 20-30 H Urine Bacteria (Auto) Negative Rheumatoid Factor RITO Screen Lyme Disease IgG Ab Lyme Disease IgM Ab COVID-19 PCR NEGATIVE 02/24/20 02/24/20 02/24/20 07:36 07:36 11:53 WBC 6.65 RBC 4.03 L Hgb 11.6 L Hct 34.5 L MCV 85.6 MCH 28.8 MCHC 33.6 RDW Std Deviation 42.7 RDW Coeff of Melissa 13.5 Plt Count 197 MPV 10.5 H Immature Gran % (Auto) 0.2 Neut % (Auto) 54.3 Lymph % (Auto) 34.0 [place] % (Auto) 9.2 Eos % (Auto) 1.8 Baso % (Auto) 0.5 Neut # (Auto) 3.62 Lymph # (Auto) 2.26 [place] # (Auto) 0.61 H Eos # (Auto) 0.12 Baso # (Auto) 0.03 Immature Gran # (Auto) 0.01 ESR 19 Sodium 140 Potassium 3.9 Chloride 108 H Carbon Dioxide 27 Anion Gap 5.0 BUN 19 H Creatinine 0.94 Est Cr Clr Drug Dosing 62.9 Est GFR ( Amer) 76.4 Est GFR (Non-Af Amer) 65.9 BUN/Creatinine Ratio 20.3 H Glucose 92 Calcium 9.0 Total Creatine Kinase Triglycerides 165 H Cholesterol 152 LDL Cholesterol, Calc 62 VLDL Cholesterol, Calc 33 HDL Cholesterol 57 Cholesterol/HDL Ratio 3 Urine Color Urine Appearance Urine pH Ur Specific [place] Urine Protein Urine Glucose (UA) Urine Ketones Urine Blood Urine Nitrite Urine Bilirubin Urine Urobilinogen Ur Leukocyte Esterase Urine WBC (Auto) Urine RBC (Auto) U Hyaline Cast (Auto) U Epithel Cells (Auto) Urine Bacteria (Auto) Rheumatoid Factor RITO Screen Lyme Disease IgG Ab Lyme Disease IgM Ab COVID-19 PCR 02/24/20 02/24/20 11:53 11:53 WBC RBC Hgb Hct MCV MCH MCHC RDW Std Deviation RDW Coeff of Melissa Plt Count MPV Immature Gran % (Auto) Neut % (Auto) Lymph % (Auto) [place] % (Auto) Eos % (Auto) Baso % (Auto) Neut # (Auto) Lymph # (Auto) [place] # (Auto) Eos # (Auto) Baso # (Auto) Immature Gran # (Auto) ESR Sodium Potassium Chloride Carbon Dioxide Anion Gap BUN Creatinine Est Cr Clr Drug Dosing Est GFR ( Amer) Est GFR (Non-Af Amer) BUN/Creatinine Ratio Glucose Calcium Total Creatine Kinase Triglycerides Cholesterol LDL Cholesterol, Calc VLDL Cholesterol, Calc HDL Cholesterol Cholesterol/HDL Ratio Urine Color Urine Appearance Urine pH Ur Specific [place] Urine Protein Urine Glucose (UA) Urine Ketones Urine Blood Urine Nitrite Urine Bilirubin Urine Urobilinogen Ur Leukocyte Esterase Urine WBC (Auto) Urine RBC (Auto) U Hyaline Cast (Auto) U Epithel Cells (Auto) Urine Bacteria (Auto) Rheumatoid Factor Pending RITO Screen Pending Lyme Disease IgG Ab Negative Lyme Disease IgM Ab Negative COVID-19 PCR
--- NOTE | 2020-02-24 18:56 | Discharge Summary ---
Date of Service February 24, 2020 Admission HPI Per Admitting Provider History obtained from patient, family, and records. Medical history significant for hypertension, hyperlipidemia, hypothyroidism, restless leg syndrome as per records. Patient seen at PCPs office 2 weeks ago for left knee pain, left foot pain a few weeks duration. No recollection of recent trauma. Outpatient left knee x-ray showed moderate osteoarthritis medial compartment with marginal osteophyte formation and mild joint space narrowing. No knee joint effusion. No fracture or misalignment. Distal quadriceps enthesophyte. Some improvement with outpatient steroid course. 1 week history of vertigo symptoms described as spinning worse somewhat with head motion. Some sinus drainage without flulike symptoms. No chest pain, no S OB. Minimal abdominal discomfort without diarrhea/dysuria symptoms. No unusual stress at home. History of vertigo related to sinus infections as per patient. Patient seen at the ER [address] abdomen pelvis. Patient discharged home. Worsening vertigo symptoms today with patient leaning more to the left side as per her account. Some facial numbness on the left which is never happened before. No arm/leg weakness/numbness. Some left leg swelling with some worsening of left foot left knee pain complaints from 2 weeks ago. Medical History as above Surgical History : Shoulder surgery, breast biopsy, section, eye surgery, BTL Family History : Heart disease, stroke, colon cancer Personal/Social history : Non-smoker, no EtOH intake, [employer] employee Admission Exam Per Admitting Provider GENERAL: Comfortable, obese, slightly anxious, no respiratory distress SKIN: Normal color, warm HEENT: [place] palpebral conjunctivae, no ptosis, dry buccal mucosa NECK : Supple, short neck, no tenderness CHEST : CTA, no tenderness HEART : RRR, systolic murmur ABDOMEN: Some distention, nontender EXTREMITIES : Minimal bilateral LE swelling/tenderness, left knee tenderness, left mid plantar tenderness deformities noted NEUROLOGIC : Coherent, no facial asymmetry, no other gross focality Principal Diagnosis DIZZINESS LIKELY SECONDARY TO BENIGN POSITIONAL VERTIGO, LEFT KNEE PAIN LIKELY SECONDARY TO DEGENERATIVE JOINT DISEASE Discharge Exam General- oriented x 3, not in distress, speaks in sentences with no effort or accessory muscle use Head- atraumatic Eyes- PERRL, EOMI, anicteric ENT- oropharynx clear Face-very mild edema left lower face, no erythema/warmth/tenderness Neck- supple, no JVD, no adenopathy, no thyromegaly; carotids +2/2, no bruits appreciated Lungs- clear to auscultation bilaterally, no rales/wheezes Heart- normal rate, regular rhythm; no murmur, no gallop, no rub appreciated Abdomen- normal bowel sounds, nondistended, soft, nontender, no masses or hepatosplenomegaly Extremities- no pretibial edema, no calf tenderness; peripheral pulses intact Left knee: Mild edema, no warmth/erythema/tenderness Neuro- alert, oriented x 3; CN 2-12 grossly intact; motor 5/5 bilaterally;se nsation 100% on all extremities; no other gross focal neurologic deficits Skin- warm & dry Discharge Data Allergies Allergy/AdvReac Type Severity Reaction Status Date / Time Sulfa (Sulfonamide Allergy Intermediate Hives Verified 02/23/20 17:34 Antibiotics) diphenhydramine AdvReac Severe RESTLESS Verified 02/23/20 17:34 [From Benadryl] LEG FLARE UP Consultations 02/23/20 19:55 ED Decision to Admit Stat 02/23/20 21:17 Consult Orthopedic Surgery Routine 02/23/20 22:36 Consult Neurology Routine Ordered Studies 02/23/20 16:51 CT angio head w con Stat CT angio neck with con Stat COMPARISON STUDY: Head CT of same day TECHNIQUE: Following the IV administration of 119 mL of Optiray 320, CT angiogram of the head and neck was performed from the aortic arch to the skull apex. Images are reviewed in the axial, sagittal, and coronal planes. 3-D MIPS images are created and assessed. IV contrast was administered without complication. All measurements were calculated based on NASCET criteria. A dose lowering technique was utilized adhering to the principles of ALARA. FINDINGS: Three-vessel morphology of aortic arch. Patency of the imaged bilateral subclavian arteries. The innominate artery and common carotid arteries appear normal and are patent. Minimal mixed plaque of the right carotid bulb without stenosis. The internal carotid arteries are widely patent and unremarkable. Minimal multifocal luminal narrowing of the middle cerebral arteries without high-grade stenosis. The anterior cerebral arteries are also patent. Diminutive right A1 segment, likely developmental. Codominant vertebral arteries are also widely patent. The majority of the bilateral vertebral arteries terminate into the posterior inferior cerebellar arteries. Diminutive basilar artery is noted with origin of the bilateral posterior cerebral arteries. No aneurysm, dissection, high-grade stenosis or proximal branch occlusion. Cerebral venous sinuses are patent. Lung apices are clear. No pneumothorax. Soft tissues are unremarkable. Homogeneous thyroid. Patent airway. No abnormal intracranial enhancement identified. Bones appear intact. Multilevel vertebral spurring and facet arthrosis. Mastoid air cells and paranasal sinuses are clear. Hypoplastic left frontal sinus. IMPRESSION:Unremarkable CTA of the head and neck without aneurysm, dissection, high-grade stenosis or proximal branch occlusion. CT head/brain wo con Stat COMPARISON: Head CT 09/09/2017 FINDINGS: No acute intracranial hemorrhage, midline shift, intracranial mass, hydrocephalus, territorial ischemia or abnormal extra-axial collection. Mild patchy white matter hypodensities suggest chronic microvascular ischemic disease. Ill-defined hypodensity of the left brachium pontis is likely artifactual. The calvarium is intact. The paranasal sinuses, mastoid air cells, and middle ear cavities are clear. IMPRESSION: No acute intracranial abnormality. 02/23/20 21:09 US venous doppler LE LT Urgent IMPRESSION: No DVT within the left lower extremity. 02/24/20 09:45 MR brain IAC wo/w con Routine FINDINGS: There are no foci of restricted diffusion to suggest acute infarct. No acute intracranial hemorrhage, midline shift or mass effect is present. Brain volume is normal. Ventricular system is normal. The basilar cisterns are patent. There are no extra-axial collections. There is no intracranial mass or pathologic enhancement. There is no mass or abnormal enhancement within the internal auditory canals. Ventricular system is normal. Minimal white matter T2 hyperintensity suggest mild small vessel disease. Arterial signals normal. Orbits are unremarkable. Sinuses are unremarkable. There is no mastoid effusion. IMPRESSION: 1. No acute intracranial findings. 2. No abnormality within the internal auditory canals. 3. No intracranial mass or pathologic enhancement. Hospital Course (1) Dizziness: Dizziness likely secondary to positional vertigo, acute CVA ruled out Patient reported dizziness with some left-sided facial numbness Brain MRI: IMPRESSION: 1. No acute intracranial findings. 2. No abnormality within the internal auditory canals. 3. No intracranial mass or pathologic enhancement. CT angiogram head and neck: IMPRESSION:Unremarkable CTA of the head and neck without aneurysm, dissection, high-grade stenosis or proximal branch occlusion. Evaluated by neurologist Dr. Linda Nicole Symptoms felt to be secondary to positional vertigo, labyrinthine exercises demonstrated Given meclizine p.o., symptoms improved PRN meclizine recommended upon discharge Possible rhinitis, sinusitis Trial of Augmentin total of 5 days And fluticasone spray Follow-up with PCP next week Hypertension Blood pressure on the low side while admitted, systolic low 100s Possibly contributing to dizziness Recommend to discontinue lisinopril hydrochlorothiazide for now Patient advised to monitor blood pressure daily, and resume above medication if blood pressure is 140/90 or above Follow-up with PCP next week Left knee pain, likely secondary to degenerative joint disease Knee x-ray: FINDINGS: There is no fracture or dislocation. Soft tissues are unremarkable. No radiopaque foreign bodies. No knee effusion. IMPRESSION: No fractures. Doppler ultrasound of the left lower extremity: No DVT Foot x-ray: 1. No acute fracture or dislocation within the left foot. 2. Mild posterior and plantar calcaneal spurring. Evaluated by orthopedic service care of Dr. Clyde Ashley Possible intra-articular steroid injection versus Visco supplementation injection of the knee as an outpatient Also evaluated for left foot pain likely secondary to tight plantar fascia Conservative measures recommended at this point Follow-up with Dr. Clyde Ashley in 1 to 2 weeks Left knee pain, hand nodules Rheumatoid factor, RITO studies pending Lyme screen negative ESR negative Consider referral to desktop support technician as an outpatient Disposition Discharge to home Follow-up with PCP in 1 week Follow-up with Ortho in 1 to 2 weeks Consider referral to desktop support technician Plan of care discussed with patient and her at the bedside in detail and at length All questions were answered She is understanding, agreeable, comfortable with the plan of care Total Time Total Time Spent Total Time Spent (In Minutes): 60 minutes Discharge Plan Discharge Items Patient Disposition: Home - Self-Care Reason For Visit: DIZZINESS Discharge Diagnosis: VERTIGO, LEFT KNEE FROM DEGENERATIVE JOINT DISEASE Activity: Resume your previous activity Activity Comment: Gradually as tolerated Lifting: Wait until after follow-up appointment Exercise/Sports: Wait until after follow-up appointment Driving/Machine Use: No driving until re-evaluated by Primary Care Physician on follow up Non-emergency contact: Primary Care Provider Call non-emergency contact if: you have any medication questions, your symptoms worsen, your pain is not controlled, your pain is worsening, your pain is unusual for you, your pain is concerning for you, you have a fever and your wound has increased redness Follow-up/Referrals: Luh Gamble DO [Primary Care Provider] - Clyde Ashley MD [Surgeon] - Diet: Regular Addtl Attending Provider Instructions: YOUR NEW MEDICATIONS INCLUDE: AUGMENTIN- antibiotic for possible sinusitis FLONASE- nasal steroid spray for possible rhinitis PLEASE STOP TAKING LISINOPRIL/HYDROCHLOROTHIAZIDE. CHECK YOUR BLOOD PRESSURE DAILY. IF YOUR BLOOD PRESSURE IS 140/90 OR ABOVE, RESUME TAKING LISINOPRIL/HYDROCHLOROTHIAZIDE. Do not take medications under the class of NSAIDs including ibuprofen, naproxen, meloxicam, etc. Always consult with your doctor first before starting any new medication. Drink plenty fluids. Call your primary care physician or return to the ER immediately if with worsening or recurrence of symptoms. Follow-up with primary care physician in 1 week. [facility] will be calling you for the appointment schedule. Follow-up with orthopedic clinic care of Dr. Ashley in 1 to 2 weeks. Please contact his office for an appointment. Contact formation noted above. Who to Call and When: Medical Emergencies: Call 911 immediately if you experience any of the following warning signs and symptoms of Stroke: Sudden numbness or weakness of the face, arm or leg, especially on one side of the body Sudden confusion, trouble speaking or understanding Sudden trouble seeing in one or both eyes Sudden trouble walking, dizziness, loss of balance or coordination Sudden severe headache with no cause Do not delay calling 911 if you experience any warning signs or symptoms of a stroke. Delay in seeking medical attention may affect what treatments can be given to you. . Pending Studies at Discharge: Yes Studies:: Results of the following tests: Rheumatoid factor, RITO Stand-Alone Forms: [facility], Smoking Cessation Medications and DC Order Prescriptions: New amoxicillin-pot clavulanate [Augmentin] 875-125 mg Tablet 1 tab PO BIDM Qty: 8 RF: 0 fluticasone propionate 50 mcg/actuation [place],Suspension 2 spray NA DAILY Qty: 1 RF: 0 meclizine 25 mg tablet 25 mg PO TID PRN (Reason: dizziness) Qty: 30 RF: 0 Continued atorvastatin 10 mg tablet 10 mg PO QAM RF: 0 pantoprazole 40 mg tablet,delayed release (DR/EC) 40 mg PO QAM RF: 0 multivitamin Tablet 1 tab PO QAM RF: 0 calcium carbonate [Calcium 600] 600 mg calcium (1,500 mg) Tablet 600 mg PO QAM RF: 0 ascorbic acid (vitamin C) [Vitamin C] 500 mg Tablet 500 mg PO QAM RF: 0 ropinirole 2 mg tablet 4 mg PO HS RF: 0 vitamin B complex Tablet 1 tab PO QAM RF: 0 vitamin E 400 unit Capsule 400 unit PO QAM RF: 0 cholecalciferol (vitamin D3) [Vitamin D3] 1,000 unit Capsule 1,000 unit PO QAM RF: 0 omega [id number] oil [Fish Oil] 1,000 mg (120 mg-180 mg) Capsule 1 cap PO QAM RF: 0 Discontinued lisinopril-hydrochlorothiazide 20-25 mg tablet 1 tab PO QAM RF: 0 Discharge Orders: Discharge Order (Routine); Ordered 02/24/20 Ordered By: Beni Kelsey Admission Data Admit Date/Time: 02/23/20 21:11 Attending Provider: Beni Kelsey Admit Provider: Josh Mathew Primary Care Provider: Luh Gamble Other Providers: Josh Mathew ; Emanuel Serrano ; Linda Hyde ; Winston Stark ; Linda Nicole ; Ford Montilla Other Interventions: Discharge Summary Assessment (RN) Last Done: 02/24/20 18:13 DC Date/Time DO NOT enter until pt leaves facility: 02/24/20 18:35
--- NOTE | 2020-02-25 07:38 | Electrocardiogram Report ---
Test Reason : Blood Pressure : / mmHG Vent. Rate : 071 BPM Atrial Rate : 071 BPM P-R Int : 156 ms QRS Dur : 084 ms QT Int : 400 ms P-R-T Axes : 047 036 030 degrees QTc Int : 434 ms Normal sinus rhythm Normal ECG When compared with ECG of 21-FEB-2020 14:00, No significant change was found Confirmed by Calixto Wellington ([id number]) on 02/25/2020 7:38:12 AM Referred By: REFERRED SELF Confirmed By:Calixto Wellington
--- NOTE | 2020-02-26 08:00 | Progress Notes ---
DATE: 02/24/2020 Radiographs of her left foot are reviewed showing no acute fracture or dislocation. Report noted. There is mild calcaneal spurring. Treatment recommendations remained unchanged.
[2020-02-27 14:57] LABS: Anti Nuclear Antibody Screen POSITIVE (NEGATIVE); Rheumatoid Factor <14 IU/mL (<14)
[2020-03-01 14:18] LABS: ANA Pattern Nuclear, Homogeneous
== END 2020-02-24 18:35 | disposition home or self-care (01) ==
LOC: 2W 16:11 → ED 16:11 → 2W 22:07

== ENCOUNTER 2025-02-07 03:27 | Observation (INO) ==
--- NOTE | 2025-02-07 03:54 | Emergency Department Note ---
Impression & Plan Restless leg syndrome, Dehydration Admit to the [facility] ED Provider Note NAME: HUE MALHOTRA AGE: 64 SEX: Female INFORMANT: Patient ED PROVIDER(S): Leigh Hammonds DO CHIEF COMPLAINT: Bilateral calf pain and spasm PLAN: Disposition: admitted to the [facility] MEDICAL DECISION MAKING: This is a 64-year-old female patient who is being weaned off of her ropinirole (4mg down to 1.5mg) the patient had been on Requip/ropinirole for the past 25 years for restless leg syndrome. She has begun to have side effects from this medication and her PCP is weaning her off of it. Tonight, the patient has noticed severe calf pain and spasms. She tried using Motrin, oxycodone and ice without relief of her symptoms. She also noticed increased thirst and overall has not been feeling well. patient had taken 4 mg of Requip at night for approximately 20 years until October when her PCP was decreasing her dose. She most recently was taking 1.5 mg. Laboratory studies revealed no leukocytosis or anemia. BUN was elevated at 30. Glucose of 104 and TSH was normal. The patient was medicated with IV Ativan and Toradol with absolutely no relief of the pain in her legs or muscle spasms. She then went on to receive a dose of IV Dilaudid which temporarily gave her some relief for her discomfort. I reviewed the results of the labs with the patient and her . She was bolused with IV normal saline solution. I reviewed the Requip dose with the pharmacist and we have decided to give her 2.5 mg dose since she had 1.5 mg last evening at 8:30 as she described it to me. Again, this did seem to give her some relief and allowed her to rest comfortably but only for short period of time. When the patient's pain returned and was so severe, I went to the bedside again and spoke with the patient and she admitted to me that she had not taken her evening dose of Requip at all. Therefore, she would require an additional 1.5 mg. I ordered it. I then gave a dose of IV fentanyl for her severe pain. Once again, this gave her a brief episode of relief of the discomfort but then awoke with severe pain again in both calfs. Care/management discussed with: Patient's , the pharmacist, the engine manager, and the [facility] Triage Nursing notes: reviewed and agree With them. Vital Signs: reviewed and remarkable for hypertension ECG: Normal sinus rhythm at a rate of [address] segment elevation or signs of ischemia. There is no ectopy. This was interpreted by me. Chronic Medical/Social Conditions affecting care: Restless leg syndrome for more than 25 years. Differential Diagnosis: withdrawal from ropinirole, restless leg syndrome, HPI:The patient had been on Requip/ropinirole for the past 25 years for restless leg syndrome. She has begun to have side effects from this medication and her PCP is weaning her off of it. Tonight, the patient has noticed severe calf pain and spasms. She tried using Motrin, oxycodone and ice without relief of her symptoms. She also noticed increased thirst and overall has not been feeling well. PAST MEDICAL HISTORY: See Below, PAST SURGICAL HISTORY: See Below, SOCIAL HISTORY: See Below, HOME MEDICATIONS: See list ALLERGIES: see list VITALS: See Below PHYSICAL EXAMINATION: HEENT: Head - normocephalic and atraumatic Pupils are equal, round, and reactive to light. Extraocular eye muscles are intact, and sclera are anicteric. Nose - moist nasal mucosa without discharge. Mouth - Extremely dry buccal mucosa. Oropharynx is nonerythematous and there is no tonsillar exudate or edema noted. Neck: Supple; no JVD or cervical lymphadenopathy Heart: Regular rate and rhythm. There is a normal S1 and S2 with no murmurs, clicks, or gallops appreciated. Lungs: Clear to auscultation bilaterally with no wheezes, rales, or rhonchi. Abdomen: Soft, completely nontender, nondistended, with good bowel sounds. There are no palpable pulsatile masses or hepatosplenomegaly. There is no guarding, rigidity, or rebound noted. Extremities: patient has moderate muscle spasm to both calves. These are tender to palpation. She does have easily palpable dorsalis pedis and posterior tibial pulses noted in both lower extremities. Skin: warm and dry with good turgor and no rashes. Emergency Department treatment: cushion sewer, IV normal saline bolus, supplemental oxygen, IV Dilaudid, IV Zofran, IV Ativan, oral ropinirole x 2, IV fentanyl Emergency Department course: The patient was evaluated in room A-10. A complete history and physical was performed. a twelve-lead EKG was obtained as described above. An IV lock was initiated and labs were drawn as above. Patient was initially medicated with IV Ativan and IV Toradol. This gave her no relief of her discomfort. She went on to receive a dose of IV Dilaudid. This gave her only minimal relief of the discomfort. She was bolused with a liter of normal saline solution for evidence of dehydration. Patient was given some replacement ropinirole-2.5 mg. This did give the patient some relief again of the muscle spasms and discomfort in the lower legs. She slept for a short period of time but upon awakening to go to the bathroom all the symptoms returned. At this point, the patient was given and additional dose of Oral ropinirole since that she had taken none of her ropinirole last night. This did not seem to give her much relief. She went on to receive a dose of IV fentanyl because she complained of such severe pain that was coming in waves in both of her calves. This did give her some relief but only lasted for approximately 20 minutes. I discussed the case with the [facility] Hospitalist and they will evaluate for further inpatient care Past Med/Surg History Problem List (Updated 02/07/25 @ 06:33 by Leigh Hmamonds DO) Dehydration (Acute) Restless leg syndrome (Acute) Osteoarthritis, knee Encounter for pre-operative examination Dizziness Left foot pain Left knee DJD Vertigo History of colonoscopy Heart murmur has had for several yrs Restless leg syndrome Migraine Nausea vomiting and diarrhea (Acute) Hypertension (Chronic) Medical History IBS (irritable bowel syndrome) History of COVID-19 Aug 16, 2021 at [place] > cough, sinus pressure/pain Arthropathies DDD (degenerative disc disease) Diverticular disease GERD (gastroesophageal reflux disease) Hx of vertigo no current issues Surgical History History of cataract surgery LEFT History of section x1 History of dilatation and curettage History of arthroscopy left shoulder History of tooth extraction Hx of LASIK Hx of tubal ligation Family History Father Diabetes Sister Colon cancer Social History Smoking Status: Never smoker Second Hand Exposure: No; Do You Dip or Chew Tobacco: No; Hx Alcohol Use: No Hx Substance Use: No Preferred Language: Thai Communication Ability: Effective 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 Beliefs That Will Affect Care: None Current Living Situation: Spouse Current Living Situation Comment: Partner Guille Feels Safe at Home: Yes Assistive Devices: Glasses Allergies Allergies Allergy/AdvReac Type Severity Reaction Status Date / Time Sulfa (Sulfonamide Allergy Intermediate Hives Verified 02/19/24 20:49 Antibiotics) diphenhydramine AdvReac Severe RESTLESS Verified 02/19/24 20:49 [From Benadryl] LEG FLARE UP Home Meds Home Medications Medication Instructions Recorded Confirmed ropinirole 4 mg tablet 4 mg PO HS 07/17/20 02/19/24 lisinopril 20 mg tablet 20 mg PO QAM 12/03/20 02/19/24 amlodipine 5 mg tablet 5 mg PO QAM 10/23/21 02/19/24 omeprazole 40 mg capsule,delayed 40 mg PO DAILYBB 04/09/23 02/19/24 release rosuvastatin 20 mg tablet 20 mg PO QAM 04/09/23 02/19/24 fluorometholone 0.1 % eye 1 drp OPB BID 08/09/23 02/19/24 drops,suspension famotidine 20 mg tablet 20 mg PO BID 11/19/23 02/19/24 tramadol 50 mg tablet 50 mg PO Q6H PRN Severe Pain 11/27/23 02/19/24 (Scale Score 7-10) lidocaine 5 % topical patch 1 patch topical DAILY PRN Pain 02/19/24 02/19/24 (Lidoderm) Previous Rx's Medication Instructions Recorded ondansetron 4 mg disintegrating 4 mg PO Q8H PRN nausea and 04/29/24 tablet vomiting #30 tabs fluconazole 150 mg tablet 150 mg PO Q3D 2 doses #2 tabs 08/22/24 ropinirole 4 mg tablet 4 mg PO HS #30 tabs 02/07/25 Results & Data (ED) Vital Signs Vital Signs - 24 hr 02/07/25 03:31 02/07/25 03:57 02/07/25 04:17 Temperature 36.6 C Temperature Source Temporal Artery Scan Pulse Rate 93 H 99 H 97 H Pulse Rate from SpO2 Sensor Pulse Rhythm Regular Regular Respiratory Rate 19 24 Respiratory Effort / Characteristics Non-Labored Respiratory Depth Normal Blood Pressure 167/94 H Blood Pressure Mean 118 Pulse Oximetry 96 96 Oxygen Delivery Method Room Air Room Air Oxygen Flow Rate Sepsis Recent Fever Within 48 Hours No Sepsis New/Unexplained Change in Mental Status No Sepsis Action Taken by Nursing No Action Required Oxygen Flow Rate - Titration Pulse Oximetry Post Tiitration 02/07/25 04:21 02/07/25 04:30 02/07/25 04:33 Temperature Temperature Source Pulse Rate 96 H 104 H 98 H Pulse Rate from SpO2 Sensor 100 H 104 H 96 H Pulse Rhythm Respiratory Rate 24 25 H 19 Respiratory Effort / Characteristics Respiratory Depth Blood Pressure 180/102 H 180/102 H Blood Pressure Mean 128 128 Pulse Oximetry 95 95 93 Oxygen Delivery Method Room Air Room Air Room Air Oxygen Flow Rate Sepsis Recent Fever Within 48 Hours Sepsis New/Unexplained Change in Mental Status Sepsis Action Taken by Nursing Oxygen Flow Rate - Titration Pulse Oximetry Post Tiitration 02/07/25 04:51 02/07/25 05:06 02/07/25 05:08 Temperature Temperature Source Pulse Rate 147 H 94 H 94 H Pulse Rate from SpO2 Sensor 95 H 95 H Pulse Rhythm Respiratory Rate 25 H 20 24 Respiratory Effort / Characteristics Respiratory Depth Blood Pressure 161/91 H Blood Pressure Mean 114 Pulse Oximetry 92 92 85 L Oxygen Delivery Method Room Air Room Air Room Air Oxygen Flow Rate Sepsis Recent Fever Within 48 Hours Sepsis New/Unexplained Change in Mental Status Sepsis Action Taken by Nursing Oxygen Flow Rate - Titration Pulse Oximetry Post Tiitration 02/07/25 05:10 02/07/25 05:30 02/07/25 05:48 Temperature Temperature Source Pulse Rate 93 H 94 H 96 H Pulse Rate from SpO2 Sensor 93 H 90 95 H Pulse Rhythm Respiratory Rate 24 15 21 Respiratory Effort / Characteristics Respiratory Depth Blood Pressure 164/102 H Blood Pressure Mean 122 Pulse Oximetry 94 91 93 Oxygen Delivery Method Nasal Cannula Nasal Cannula Nasal Cannula Oxygen Flow Rate 2 2 2 Sepsis Recent Fever Within 48 Hours Sepsis New/Unexplained Change in Mental Status Sepsis Action Taken by Nursing Oxygen Flow Rate - Titration Pulse Oximetry Post Tiitration 02/07/25 05:51 02/07/25 06:06 02/07/25 06:39 Temperature Temperature Source Pulse Rate 94 H 86 Pulse Rate from SpO2 Sensor 94 H 87 Pulse Rhythm Respiratory Rate 18 17 Respiratory Effort / Characteristics Respiratory Depth Blood Pressure 137/74 Blood Pressure Mean 95 Pulse Oximetry 94 95 95 Oxygen Delivery Method Nasal Cannula Nasal Cannula Room Air Oxygen Flow Rate 2 2 2 Sepsis Recent Fever Within 48 Hours Sepsis New/Unexplained Change in Mental Status Sepsis Action Taken by Nursing Oxygen Flow Rate - Titration 0 Pulse Oximetry Post Tiitration 95 02/07/25 06:39 02/07/25 06:45 02/07/25 06:51 Temperature Temperature Source Pulse Rate 92 H 93 H 91 H Pulse Rate from SpO2 Sensor 92 H 93 H 92 H Pulse Rhythm Respiratory Rate 18 19 21 Respiratory Effort / Characteristics Respiratory Depth Blood Pressure Blood Pressure Mean Pulse Oximetry 95 93 93 Oxygen Delivery Method Room Air Room Air Room Air Oxygen Flow Rate Sepsis Recent Fever Within 48 Hours Sepsis New/Unexplained Change in Mental Status Sepsis Action Taken by Nursing Oxygen Flow Rate - Titration Pulse Oximetry Post Tiitration Laboratory Data 02/07/25 04:00 02/07/25 04:00 Lab Results 02/07/25 02/07/25 Range/Units 04:00 04:17 WBC 8.03 (4.8-10.8) K/ul RBC 4.26 (4.20-5.40) M/uL Hgb 12.9 (12.0-16.0) g/dl Hct 37.8 (37.0-47.0) % MCV 88.7 (80.0-100.0) fL MCH 30.3 (25.0-34.0) pg MCHC 34.1 (32.0-36.0) g/dL RDW Std Deviation 41.7 (36.4-46.3) fL RDW Coeff of Melissa 12.8 (11.5-14.5) % Plt Count 208 (130-400) K/uL MPV 10.7 (9.4-12.4) fL Immature Gran % (Auto) 0.5 % Neut % (Auto) 62.7 % Lymph % (Auto) 25.3 % [place] % (Auto) 9.8 % Eos % (Auto) 1.1 % Baso % (Auto) 0.6 % Neut # (Auto) 5.03 (1.40-6.50) K/uL Lymph # (Auto) 2.03 (1.20-3.40) K/uL [place] # (Auto) 0.79 H (0.11-0.59) K/uL Eos # (Auto) 0.09 (0.00-0.50) K/uL Baso # (Auto) 0.05 (0.00-0.20) K/uL Immature Gran # (Auto) 0.04 (0.01-0.20) K/uL Sodium 138 (136-145) mmol/L Potassium 3.9 (3.5-5.1) mmol/L Chloride 101 (98-107) mmol/L Carbon Dioxide 27 (21-32) mmol/L Anion Gap 10 (3-11) BUN 30 H (6-23) mg/dl Creatinine 0.83 (0.6-1.2) mg/dl Est Cr Clr Drug Dosing 67.5 ml/min eGFR 78.18 BUN/Creatinine Ratio 36.1 H (10-20) Glucose 104 H (70-99(Fasting)) mg/dl Calcium 9.8 (8.6-10.3) mg/dl Total Bilirubin 1.9 H (0.2-1.0) mg/dl AST 32 (13-39) U/L ALT 22 (7-52) U/L Alkaline Phosphatase 59 (34-104) U/L Total Protein 7.8 (6.0-8.3) gm/dl Albumin 4.5 (3.4-5.0) gm/dl Globulin 3.3 (2.5-4.0) gm/dl Albumin/Globulin Ratio 1.4 (0.9-2) TSH 3.799 (0.300-4.500) uIu/ml Urine Color Yellow Urine Appearance Clear (Clear) Urine pH 5.5 (4.5-7.5) Ur Specific [place] 1.033 H (1.000-1.030) Urine Protein Negative (Negative) Urine Glucose (UA) Negative (Negative) Urine Ketones Negative (Negative) Urine Blood Negative (Negative) Urine Nitrite Negative (Negative) Urine Bilirubin Negative (Negative) Urine Urobilinogen Negative (Negative) Ur Leukocyte Esterase Trace H (Negative) Urine WBC (Auto) 0-5 (0-5) /hpf Urine RBC (Auto) 0-2 (0-2) /hpf U Hyaline Cast (Auto) 0-2 (0-2) /lpf U Epithel Cells (Auto) 3-5 H (0-2) /hpf Urine Bacteria (Auto) None Seen (None Seen) Urine Comment Administered Medications Discontinued Medications Fentanyl Citrate (Fentanyl Citrate Pf 100 Mcg/2 Ml Vial) 100 mcg IV NOW STA Stop: 02/07/25 07:03 Last Admin: 02/07/25 07:10 Dose: 100 mcg Documented By: RICH Hydromorphone HCl (Hydromorphone Inj 1 Mg/Ml Syringe) 1 mg IV NOW STA Stop: 02/07/25 04:25 Last Admin: 02/07/25 04:31 Dose: 1 mg Documented By: LOUISE Sodium Chloride (Nss) 1,000 mls @ 999 mls/hr IV .Q1H1M ONE Stop: 02/07/25 06:19 Last Infusion: 02/07/25 06:24 Dose: Infused Documented By: Admin: 02/07/25 05:23 Dose: 999 mls/hr Documented By: LOUISE Ketorolac Tromethamine (Ketorolac Tromethamine 15 Mg/Ml Vial) 15 mg IV NOW ONE Stop: 02/07/25 03:50 Last Admin: 02/07/25 04:03 Dose: 15 mg Documented By: LOUISE Lorazepam (Lorazepam 2 Mg/1 Ml Vial) 1 mg IV NOW STA Stop: 02/07/25 03:50 Last Admin: 02/07/25 04:04 Dose: 1 mg Documented By: LOUISE Ropinirole HCl (Ropinirole Hcl 2 Mg Tablet) 2.5 mg PO NOW STA Stop: 02/07/25 05:35 Last Admin: 02/07/25 05:52 Dose: 2.5 mg Documented By: ANGELIC Ropinirole HCl (Ropinirole Hcl 1 Mg Tablet) 1.5 mg PO NOW STA Stop: 02/07/25 06:37 Last Admin: 02/07/25 06:46 Dose: 1.5 mg Documented By: LOUISE Imaging Data Radiologist's Impression: Chest X-Ray 02/07/25 03:50 EXAM: XR chest 1V portable CLINICAL HISTORY: weakness TECHNIQUE: An X-ray image of the chest is obtained in AP projection. 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 FINDINGS: Pulmonary Parenchyma: Otherwise, lungs are clear bilaterally. No evidence of consolidation, collapse, or focal opacities. No pulmonary nodules are identified. No evidence of pleural effusion or pleural thickening. Heart and Mediastinum: Heart size and shape are normal. No mediastinal widening or masses. No hilar or mediastinal lymphadenopathy. Bony Thorax: Bony thorax appears intact without fractures or deformities. Soft Tissues: Soft tissues overlying the chest wall are unremarkable. IMPRESSION: 1. No acute cardiopulmonary abnormalities are identified. 2. No interval time changes. Electronically signed by Jair Phan 02-07-2025 05:06 AM Discharge Plan Visit Data Chief Complaint: Calf Pain Stated Complaint: SEVERE MUSCLE PAIN/SPASM ED Provider: Leigh Hammonds Discharge Problem: Restless leg syndrome, Dehydration Condition: Fair Discharge Instructions Krames/Other Patient Handouts: RLS, RLS What to Do, ED Dehydration (Adult) Activity Restrictions/Additional Instructions: Take the 4mg dose of the Ropinirole. Follow up with Sleep medicine for possible alternative meds Keep yourself well-hydrated. Forms Stand Alone Forms: My [facility] [employer] Prescriptions Prescriptions: New ropinirole 4 mg tablet 4 mg PO HS Qty: 30 0RF Rx Instructions: administer 1-3 hours before bedtime No Action ropinirole 4 mg tablet 4 mg PO HS amlodipine 5 mg Tablet 5 mg PO QAM lisinopril 20 mg tablet 20 mg PO QAM rosuvastatin 20 mg tablet 20 mg PO QAM omeprazole 40 mg capsule,delayed release(DR/EC) 40 mg PO DAILYBB fluorometholone 0.1 % drops,suspension 1 drp OPB BID famotidine 20 mg tablet 20 mg PO BID tramadol 50 mg tablet 50 mg PO Q6H PRN (Reason: Severe Pain (Scale Score 7-10)) Rx Instructions: As of 11/27/23 - Pt states they haven't started this yet. Original Directions: 50mg by mouth every 6 hours as needed for severe pain lidocaine [Lidoderm] 5 % adhesive patch,medicated 1 patch topical DAILY PRN (Reason: Pain) Rx Instructions: leave on most painful area for up to 12 hrs ondansetron 4 mg tablet,disintegrating 4 mg PO Q8H PRN (Reason: nausea and vomiting) Qty: 30 0RF fluconazole 150 mg tablet 150 mg PO Q3D Qty: 2 0RF Rx Instructions: may repeat second dose 72 hrs after first dose if symptoms persist Referrals Referrals: Renzo Rubin MD [Primary Care Provider] -
[2025-02-07] MEDS: KETOROLAC TROMETHAMINE 15 MG/ML VIAL IV ONE (04:03)
[2025-02-07 04:21] LABS: Hematocrit (blood only) 37.8 % (37.0-47.0); Hemoglobin 12.9 g/dl (12.0-16.0); Immature Granulocytes # (auto) 0.04 K/uL (0.01-0.20); Immature Granulocytes % (auto) 0.5 %; Mean Corpuscular Hemoglobin 30.3 pg (25.0-34.0); Mean Corpuscular Volume 88.7 fL (80.0-100.0); Platelet Count 208 K/uL (130-400); RDW Standard Deviation 41.7 fL (36.4-46.3); Red Blood Count 4.26 M/uL (4.20-5.40); White Blood Count 8.03 K/ul (4.8-10.8)
[2025-02-07] MEDS: HYDROmorphone INJ 1 MG/ML SYRINGE IV STA (04:31)
[2025-02-07 04:40] LABS: Alanine Aminotransferase 22.0 U/L (7-52); Albumin Globulin Ratio 1.4 (0.9-2); Alkaline Phosphatase 59.0 U/L (34-104); Anion Gap 10.0 (3-11); Bilirubin,Total 1.9 mg/dl (0.2-1.0); Blood Urea Nitrogen 30.0 mg/dl (6-23); Calcium 9.8 mg/dl (8.6-10.3); Carbon Dioxide 27.0 mmol/L (21-32); Chloride 101.0 mmol/L (98-107); Creatinine Clr Calc Pharmacy 67.5 ml/min; Globulin 3.3 gm/dl (2.5-4.0); Glucose 104.0 mg/dl (70-99(Fasting)); Potassium 3.9 mmol/L (3.5-5.1); Sodium 138.0 mmol/L (136-145); Total Protein 7.8 gm/dl (6.0-8.3)
[2025-02-07 04:47] LABS: Appearance Urine Clear (Clear); Bacteria Urine Automated None Seen (None Seen); Cast Urine Automated 0-2 /lpf (0-2); Glucose Urine UA Negative (Negative); RBC Urine Automated 0-2 /hpf (0-2); WBC Urine Automated 0-5 /hpf (0-5)
[2025-02-07 04:55] LABS: Thyroid Stimulating Hormone 3.799 uIu/ml (0.300-4.500)
--- NOTE | 2025-02-07 05:06 | XRay Report ---
EXAM: XR chest 1V portable CLINICAL HISTORY: weakness TECHNIQUE: An X-ray image of the chest is obtained in AP projection. 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 FINDINGS: Pulmonary Parenchyma: Otherwise, lungs are clear bilaterally. No evidence of consolidation, collapse, or focal opacities. No pulmonary nodules are identified. No evidence of pleural effusion or pleural thickening. Heart and Mediastinum: Heart size and shape are normal. No mediastinal widening or masses. No hilar or mediastinal lymphadenopathy. Bony Thorax: Bony thorax appears intact without fractures or deformities. Soft Tissues: Soft tissues overlying the chest wall are unremarkable. IMPRESSION: 1. No acute cardiopulmonary abnormalities are identified. 2. No interval time changes. Electronically signed by Jair Phan 02-07-2025 05:06 AM
[2025-02-07] MEDS: SODIUM CHLORIDE 0.9% 1,000 ML IV ONE (05:23)
--- NOTE | 2025-02-07 08:45 | History & Physical Report ---
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 Obtain venous duplex of bilateral lower extremity Discussed with on-call neurology; recommend continued taper of Requip given that the Requip was tapered down due to augmentation; recommended to consider Cymbalta for pain control along with benzo diazepam. Patient started on Cy mbalta 30 mg; stop tramadol while on Cymbalta. On clonazepam 0.25 mg every 8 hour; titrated up as needed. Also on baclofen 5 mg 3 times daily Stage III pressure ulcer of left heel, POA Started after fracture of her ankle in late August 2024 and was placed on a cast which she rubbed and irritated her. Bactroban/DSD daily topically to open area. Offloading with Globoped shoe. Hyperlipidemiacontinue on rosuvastatin Hypertensioncontinue on hydrochlorothiazide GERDcontinue on omeprazole Full code DVT prophylaxis heparin Time spent evaluating patient, direct bedside care, chart review, placing orders, interpretation of diagnostic studies, discussion with consultants, patient, and family members, as well as other required patient management leahi wendy is 75 minutes Please note the above document was generated using voice recognition software. It may contain grammatical, syntax or spelling errors. Any formal questions or concerns about the content, text or information contained within the body of this dictation should be directly addressed to the provider for clarification History of Present Illness Chief Complaint: Leg spasms/pain for 1 day Primary Care Provider: Renzo Rubin MD History obtained from chart review, and interview with the patient Past medical history of hypertension, hyperlipidemia, restless leg syndrome, stage III pressure ulcer of the left foot(following with wound care at [facility]) Patient presents to the hospital with severe calf pain and spasm which started last night. Patient has a history of restless leg syndrome for which she was on ropinirole for last 25 years. Her primary care doctor started to wean her off gradually over the course of last few months; she was previously on 4 mg at night when the tapering was started. On presentation to the ED, patient was treated with Ativan, Toradol, Dilaudid without relief of the pain. After discussion with the pharmacist; patient was given 2.5 mg dose along with 1.5 which provided relief but pain and spasm returned. ED referred for admission to the hospital for pain control, neurology consultation. Last seen by [facility] neurology in the past; in October 2022 Allergies Allergy/AdvReac Type Severity Reaction Status Date / Time Sulfa (Sulfonamide Allergy Intermediate Hives Verified 02/19/24 20:49 Antibiotics) diphenhydramine AdvReac Severe RESTLESS Verified 02/19/24 20:49 [From Benadryl] LEG FLARE UP Home Medications Medication Instructions Recorded Confirmed Type lisinopril 20 mg tablet 20 mg PO UD 12/03/20 02/07/25 History amlodipine 5 mg tablet 5 mg PO UD 10/23/21 02/07/25 History omeprazole 40 mg capsule,delayed 40 mg PO DAILYBB 04/09/23 02/07/25 History release rosuvastatin 20 mg tablet 20 mg PO QAM 04/09/23 02/07/25 History fluorometholone 0.1 % eye 1 drp OPB UD 08/09/23 02/07/25 History drops,suspension famotidine 20 mg tablet 20 mg PO BID 11/19/23 02/07/25 History tramadol 50 mg tablet 50 mg PO UD PRN Severe Pain (Scale 11/27/23 02/07/25 History Score 7-10) lidocaine 5 % topical patch 1 patch topical DAILY PRN Pain 02/19/24 02/07/25 History (Lidoderm) hydrochlorothiazide 12.5 mg capsule 12.5 mg PO DAILY 02/07/25 02/07/25 History ondansetron 4 mg disintegrating 4 mg PO UD PRN nausea and vomiting 02/07/25 02/07/25 History tablet ropinirole 0.5 mg tablet 0.5 mg PO UD 02/07/25 02/07/25 History ropinirole 1 mg tablet 1 mg PO UD 02/07/25 02/07/25 History ropinirole 4 mg tablet 4 mg PO HS #30 tabs 02/07/25 02/07/25 Rx Past Med/Surg History Problem List (Updated 02/07/25 @ 06:33 by Leigh Hammonds DO) Dehydration (Acute) Restless leg syndrome (Acute) Osteoarthritis, knee Encounter for pre-operative examination Dizziness Left foot pain Left knee DJD Vertigo History of colonoscopy Heart murmur has had for several yrs Restless leg syndrome Migraine Nausea vomiting and diarrhea (Acute) Hypertension (Chronic) Medical History IBS (irritable bowel syndrome) History of COVID-19 Aug 16, 2021 at [facility] > cough, sinus pressure/pain Arthropathies DDD (degenerative disc disease) Diverticular disease GERD (gastroesophageal reflux disease) Hx of vertigo no current issues Surgical History History of cataract surgery LEFT History of section x1 History of dilatation and curettage History of arthroscopy left shoulder History of tooth extraction Hx of LASIK Hx of tubal ligation Family History Father Diabetes Sister Colon cancer Social History Smoking Status: Never smoker Second Hand Exposure: No; Do You Dip or Chew Tobacco: No; Hx Alcohol Use: No Hx Substance Use: No Preferred Language: Malian Communication Ability: Effective Production Artist Required: No Beliefs That Will Affect Care: None Current Living Situation: Spouse Current Living Situation Comment: Partner Guille Feels Safe at Home: Yes Safety Concerns: Feels Safe At This Time Assistive Devices: Glasses Review of Systems Review of Systems: All systems reviewed & are unremarkable except as noted in Subjective Physical Exam Physical Exam: On physical examination; Constitutional:Appears to be in significant discomfort due to pain/spasm. Standing at the side of the bed Respiratory: normal respiratory effort, lungs clear to auscultation, no wheeze, rales, rhonchi. Normal insp/exp effort, no accessory muscle use Cardiovascular: RRR, no murmur, no edema Vessels: no JVD or carotid bruit Chest: normal inspection of chest Abdomen: normal bowel sounds, soft, nontender, no hepatosplenomegaly Musculoskeletal: no cyanosis or clubbing, extremities motor strength 5/5 Skin: no rashes, warm and dry normal turgor Neurologic: PERRL, EOMI, accommodation nl, no face palsy, no dysarthria CN's II- XI intact bilaterally and moves all extremities Results & Data Results & Data Vital Signs (Past 12 Hours) Vital Signs Temp Pulse Resp BP Pulse Ox O2 Del Method O2 Flow Rate 02/07/25 06:51 91 H 21 93 Room Air 02/07/25 06:45 93 H 19 93 Room Air 02/07/25 06:39 92 H 18 95 Room Air 02/07/25 06:39 95 Room Air 2 02/07/25 06:06 86 17 137/74 95 Nasal Cannula 2 02/07/25 05:51 94 H 18 94 Nasal Cannula 2 02/07/25 05:48 96 H 21 93 Nasal Cannula 2 02/07/25 05:30 94 H 15 164/102 H 91 Nasal Cannula 2 02/07/25 05:10 93 H 24 94 Nasal Cannula 2 02/07/25 05:08 94 H 24 85 L Room Air 02/07/25 05:06 94 H 20 161/91 H 92 Room Air 02/07/25 04:51 147 H 25 H 92 Room Air 02/07/25 04:33 98 H 19 180/102 H 93 Room Air 02/07/25 04:30 104 H 25 H 180/102 H 95 Room Air 02/07/25 04:21 96 H 24 95 Room Air 02/07/25 04:17 97 H 02/07/25 03:57 99 H 24 96 Room Air 02/07/25 03:31 36.6 C 93 H 19 167/94 H 96 Room Air Code Status & VTE Plan VTE Prophylaxis Plan VTE Prophylaxis will be ordered: Yes
[2025-02-07] MEDS: BACLOFEN 10 MG TAB PO SCH (09:12)
[2025-02-07] MEDS: clonazePAM 0.25 MG OD TAB PO PRN (09:51)
[2025-02-07] MEDS: FAMOTIDINE 20 MG TAB PO SCH (09:51)
[2025-02-07] MEDS: ACETAMINOPHEN 325 MG TAB PO PRN (09:52)
[2025-02-07] MEDS: hydroCHLOROthiazide 25 MG TAB PO SCH (09:58)
[2025-02-07] MEDS: ROSUVASTATIN CALCIUM 20 MG TAB PO SCH (09:58)
[2025-02-07] MEDS: MoRPHine SULFATE 2 MG/ML CARP IV PRN (10:43)
[2025-02-07] MEDS: ONDANSETRON INJ 2 MG/ML 2 ML VIAL IV PRN (11:35)
[2025-02-07] MEDS ORDERED: clonazePAM 0.25 MG OD TAB PO PRN (13:37)
--- NOTE | 2025-02-07 14:22 | Ultrasound Report ---
BILATERAL LOWER EXTREMITY VENOUS DOPPLER CLINICAL HISTORY: Lower extremity pain. Evaluate for deep venous Bulmaro. COMPARISON STUDY: Bilateral lower extremity venous Doppler ultrasound January 10, 2025. TECHNIQUE: Sonography of the deep venous system of the bilateral lower extremities was performed. Co mpression and augmentation were evaluated. FINDINGS: The bilateral common femoral, superficial femoral and popliteal veins were compressible. A ugmentation was normal. Flow was shown within the deep calf vessels. IMPRESSION: No evidence of deep venous thrombus within the bilateral lower extremities. ACT 112: Negative or not required by law. Electronically signed by: Shreyas De Luna M.D. 02/07/2025 2:21 PM
--- NOTE | 2025-02-07 14:48 | Neurology Consultation ---
Date of Consultation February 07, 2025 Assessment & Plan (1) Restless leg syndrome: With augmentation effect and Requip titration g 3 times daily Plan Continue with Requip titration given the augmentation effect. Consider starting Cymbalta 30 mg daily,. Consider clonazepam 0.5 or 1 m milligrams 3 times daily. Continue lidocaine patches. Discontinue tramadol given the risk of serotonin syndrome with Cymbalta. Rule out underlying infections and monitor clinically Telehealth Consultation Telehealth Information Telehealth Information: I performed this visit using a real-time telehealth connection between my location and the patients location ([facility]). After connecting through interactive tele-video, patient was identified by name and d ate of and/or wristband check.Patient (or authorized healthcare outside industrial sales representative) was informed that this was a telemedicine visit and it was being conducted confidentially over secure lines. My office door was closed and no one else was present in the room with me.Patient (or authorized healthcare outside industrial sales representative) provided consent to proceed with the visit, expressed an understanding of privacy and security of the telemedicine visit, and gave permission to have a hospital outside industrial sales representative in the room in order to assist with the visit and to conduct portions of the visit, as needed. I informed the patient (or authorized healthcare outside industrial sales representative) that I reviewed their record and presented the opportunity for them to ask any questions regarding the visit today. The patient agreed to participate. History of Present Illness Reason for Consultation: Worsening pain and limb restlessness Requesting Physician: Daniel Lindsey MD Attending Physician: Daniel Lindsey MD History of Present Illness 64-year-old female patient with PMH of chronic pains mainly arthritic reports bilateral ankle pains, also history of HTN, migraines, restless leg syndrome was maintained on Requip 4 mg at bedtime for years, recently found to have augmentation effect so her outpatient physician started tapering the Requip. She reports that she is down to 1.5 mg at bedtime and she has been having severe worsening of pains, and restlessness in her legs. At the time of my evaluation the patient has received multiple medications for agitation and anxiety thought to be related to Requip withdrawal she had received morphine and clonazepam. She was sleepy and lethargic was able to contribute to the history mentioned above. Of note that the patient is maintained on tramadol and lidocaine patches as outpatient Allergies Allergy/AdvReac Type Severity Reaction Status Date / Time Sulfa (Sulfonamide Allergy Intermediate Hives Verified 02/19/24 20:49 Antibiotics) diphenhydramine AdvReac Severe RESTLESS Verified 02/19/24 20:49 [facility] LEG FLARE UP Home Medications Medication Instructions Recorded Confirmed Type lisinopril 20 mg tablet 20 mg PO UD 12/03/20 02/07/25 History amlodipine 5 mg tablet 5 mg PO UD 10/23/21 02/07/25 History omeprazole 40 mg capsule,delayed 40 mg PO DAILYBB 04/09/23 02/07/25 History release rosuvastatin 20 mg tablet 20 mg PO QAM 04/09/23 02/07/25 History fluorometholone 0.1 % eye 1 drp OPB UD 08/09/23 02/07/25 History drops,suspension famotidine 20 mg tablet 20 mg PO BID 11/19/23 02/07/25 History tramadol 50 mg tablet 50 mg PO UD PRN Severe Pain (Scale 11/27/23 02/07/25 History Score 7-10) lidocaine 5 % topical patch 1 patch topical DAILY PRN Pain 02/19/24 02/07/25 History (Lidoderm) hydrochlorothiazide 12.5 mg capsule 12.5 mg PO DAILY 02/07/25 02/07/25 History ondansetron 4 mg disintegrating 4 mg PO UD PRN nausea and vomiting 02/07/25 02/07/25 History tablet ropinirole 0.5 mg tablet 0.5 mg PO UD 02/07/25 02/07/25 History ropinirole 1 mg tablet 1 mg PO UD 02/07/25 02/07/25 History ropinirole 4 mg tablet 4 mg PO HS #30 tabs 02/07/25 02/07/25 Rx Patient History Medical History IBS (irritable bowel syndrome) History of COVID-19 Aug 16, 2021 at [facility] > cough, sinus pressure/pain Arthropathies DDD (degenerative disc disease) Diverticular disease GERD (gastroesophageal reflux disease) Hx of vertigo no current issues Surgical History History of cataract surgery LEFT History of section x1 History of dilatation and curettage History of arthroscopy left shoulder History of tooth extraction Hx of LASIK Hx of tubal ligation Family History Father Diabetes Sister Colon cancer Social History Smoking Status: Never smoker Second Hand Exposure: No; Do You Dip or Chew Tobacco: No; Hx Alcohol Use: No Hx Substance Use: No Preferred Language: Kyrgyz Communication Ability: Effective Candlemaking Laborer Required: No Beliefs That Will Affect Care: None Current Living Situation: Spouse Current Living Situation Comment: Partner Guille Feels Safe at Home: Yes Safety Concerns: Feels Safe At This Time Assistive Devices: Glasses Review of Systems Could not reliably get a review of system as the patient was groggy Physical Exam General Constitutional: Appearance normally developed Head and face: normocephalic and atraumatic Eyes: no ptosis, no anisocoria, and no dysconjugate gaze Respiratory: normal effort Cardiovascular: regular rhythm and regular rate Abdomen: non distended Skin: no rashes, lesions, or ulcers noted Psychiatric: normal judgement and insight, normal mood, and normal affect NEUROLOGIC EXAMINATION: Mental Status: Sleepy and lethargic but oriented to time, place, person, normal recent memory, normal remote memory, normal attention span, normal concentrat ion, normal language and normal fund of knowledge Cranial Nerves: CN 2 - no visual defect on confrontation and pupils round, equal, reactive to light CN 3, 4, 6 - extra-ocular movements intact and no nystagmus CN 5 - facial sensation intact CN 7 - no facial asymmetry CN 8 - intact hearing CN 9, 10 - palate symmetric, normal gag CN 11 - good shoulder shrug CN 12 - tongue midline MOTOR: Strength was at least antigravity throughout, Pronator drift was absent and There were no abnormal movements SENSATION: intact and symmetric to pinprick, light touch, vibration and joint position GAIT: To tired to get up to walk COORDINATION: no ataxia with finger to nose testing and heel to perera testing REFLEXES: cannot assess over telemedicine Results & Data Vital Signs (Past 12 Hours) Vital Signs Temp Pulse Pulse Pulse Resp BP BP 02/07/25 10:00 02/07/25 09:48 36.4 C L 90 16 138/78 02/07/25 09:36 02/07/25 09:13 77 17 117/61 02/07/25 06:51 91 H 21 02/07/25 06:45 93 H 19 02/07/25 06:39 92 H 18 02/07/25 06:39 02/07/25 06:06 86 17 137/74 02/07/25 05:51 94 H 18 02/07/25 05:48 96 H 21 02/07/25 05:30 94 H 15 164/102 H 02/07/25 05:10 93 H 24 02/07/25 05:08 94 H 24 02/07/25 05:06 94 H 20 161/91 H 02/07/25 04:51 147 H 25 H 02/07/25 04:33 98 H 19 180/102 H 02/07/25 04:30 104 H 25 H 180/102 H 02/07/25 04:21 96 H 24 02/07/25 04:17 97 H 02/07/25 03:57 99 H 24 02/07/25 03:31 36.6 C 93 H 19 167/94 H Pulse Ox O2 Del Method O2 Flow Rate 02/07/25 10:00 Nasal Cannula 02/07/25 09:48 96 Nasal Cannula 3 02/07/25 09:36 95 Nasal Cannula 4 02/07/25 09:13 98 Nasal Cannula 6 02/07/25 06:51 93 Room Air 02/07/25 06:45 93 Room Air 02/07/25 06:39 95 Room Air 02/07/25 06:39 95 Room Air 2 02/07/25 06:06 95 Nasal Cannula 2 02/07/25 05:51 94 Nasal Cannula 2 02/07/25 05:48 93 Nasal Cannula 2 02/07/25 05:30 91 Nasal Cannula 2 02/07/25 05:10 94 Nasal Cannula 2 02/07/25 05:08 85 L Room Air 02/07/25 05:06 92 Room Air 02/07/25 04:51 92 Room Air 02/07/25 04:33 93 Room Air 02/07/25 04:30 95 Room Air 02/07/25 04:21 95 Room Air 02/07/25 04:17 02/07/25 03:57 96 Room Air 02/07/25 03:31 96 Room Air Laboratory Results Laboratory Results - last 24 hr 02/07/25 02/07/25 04:00 04:17 WBC 8.03 RBC 4.26 Hgb 12.9 Hct 37.8 MCV 88.7 MCH 30.3 MCHC 34.1 RDW Std Deviation 41.7 RDW Coeff of Melissa 12.8 Plt Count 208 MPV 10.7 Immature Gran % (Auto) 0.5 Neut % (Auto) 62.7 Lymph % (Auto) 25.3 [place] % (Auto) 9.8 Eos % (Auto) 1.1 Baso % (Auto) 0.6 Neut # (Auto) 5.03 Lymph # (Auto) 2.03 [place] # (Auto) 0.79 H Eos # (Auto) 0.09 Baso # (Auto) 0.05 Immature Gran # (Auto) 0.04 Sodium 138 Potassium 3.9 Chloride 101 Carbon Dioxide 27 Anion Gap 10 BUN 30 H Creatinine 0.83 Est Cr Clr Drug Dosing 67.5 eGFR 78.18 BUN/Creatinine Ratio 36.1 H Glucose 104 H Calcium 9.8 Total Bilirubin 1.9 H AST 32 ALT 22 Alkaline Phosphatase 59 Total Protein 7.8 Albumin 4.5 Globulin 3.3 Albumin/Globulin Ratio 1.4 TSH 3.799 Urine Color Yellow Urine Appearance Clear Urine pH 5.5 Ur Specific [place] 1.033 H Urine Protein Negative Urine Glucose (UA) Negative Urine Ketones Negative Urine Blood Negative Urine Nitrite Negative Urine Bilirubin Negative Urine Urobilinogen Negative Ur Leukocyte Esterase Trace H Urine WBC (Auto) 0-5 Urine RBC (Auto) 0-2 U Hyaline Cast (Auto) 0-2 U Epithel Cells (Auto) 3-5 H Urine Bacteria (Auto) None Seen Urine Comment Diagnostic Findings Chest X-Ray 02/07/25 03:50 EXAM: XR chest 1V portable CLINICAL HISTORY: weakness TECHNIQUE: An X-ray image of the chest is obtained in AP projection. COMPARISON: 08/21/2024 20:36:27 BIZTALK ARCHITECT. FINDINGS: Pulmonary Parenchyma: Otherwise, lungs are clear bilaterally. No evidence of consolidation, collapse, or focal opacities. No pulmonary nodules are identified. No evidence of pleural effusion or pleural thickening. Heart and Mediastinum: Heart size and shape are normal. No mediastinal widening or masses. No hilar or mediastinal lymphadenopathy. Bony Thorax: Bony thorax appears intact without fractures or deformities. Soft Tissues: Soft tissues overlying the chest wall are unremarkable. IMPRESSION: 1. No acute cardiopulmonary abnormalities are identified. 2. No interval time changes. Electronically signed by Jair Phan 02-07-2025 05:06 AM Venous Doppler Study 02/07/25 09:39 BILATERAL LOWER EXTREMITY VENOUS DOPPLER CLINICAL HISTORY: Lower extremity pain. Evaluate for deep venous Bulmaro. COMPARISON STUDY: Bilateral lower extremity venous Doppler ultrasound January 10, 2025. TECHNIQUE: Sonography of the deep venous system of the bilateral lower extremities was performed. Compression and augmentation were evaluated. FINDINGS: The bilateral common femoral, superficial femoral and popliteal veins were compressible. Augmentation was normal. Flow was shown within the deep calf vessels. IMPRESSION: No evidence of deep venous thrombus within the bilateral lower extremities. ACT 112: Negative or not required by law. Electronically signed by: Shreyas De Luna M.D. 02/07/2025 2:[address] scan of the head shows no acute abnormalities and CTA shows no known large vessel occlusion. Medications Administered Home Medications Medication Instructions Recorded Confirmed Last Taken lisinopril 20 mg tablet 20 mg PO UD 12/03/20 02/07/25 11/27/23 amlodipine 5 mg tablet 5 mg PO UD 10/23/21 02/07/25 11/27/23 omeprazole 40 mg capsule,delayed 40 mg PO DAILYBB 04/09/23 02/07/25 01/16/24 release rosuvastatin 20 mg tablet 20 mg PO QAM 04/09/23 02/07/25 11/27/23 fluorometholone 0.1 % eye 1 drp OPB UD 08/09/23 02/07/25 11/27/23 drops,suspension famotidine 20 mg tablet 20 mg PO BID 11/19/23 02/07/25 11/27/23 tramadol 50 mg tablet 50 mg PO UD PRN Severe Pain (Scale 11/27/23 02/07/25 Unknown Score 7-10) lidocaine 5 % topical patch 1 patch topical DAILY PRN Pain 02/19/24 02/07/25 Unknown (Lidoderm) hydrochlorothiazide 12.5 mg capsule 12.5 mg PO DAILY 02/07/25 02/07/25 Unknown ondansetron 4 mg disintegrating 4 mg PO UD PRN nausea and vomiting 02/07/25 02/07/25 Unknown tablet ropinirole 0.5 mg tablet 0.5 mg PO UD 02/07/25 02/07/25 Unknown ropinirole 1 mg tablet 1 mg PO UD 02/07/25 02/07/25 Unknown ropinirole 4 mg tablet 4 mg PO HS #30 tabs 02/07/25 02/07/25 Unknown Active Medications Generic Name Dose Route Start Last Admin Trade Name Freq PRN Reason Stop Dose Admin Acetaminophen 650 mg 02/07/25 08:38 02/07/25 09:52 Acetaminophen 325 Mg Tab PO 03/09/25 08:37 650 mg Q4H PRN Administration pain/fever Baclofen 5 mg 02/07/25 09:00 02/07/25 14:40 Baclofen 10 Mg Tab PO 03/09/25 08:59 Not Given TID YULIET Famotidine 20 mg 02/07/25 10:00 02/07/25 09:51 Famotidine 20 Mg Tab PO 03/09/25 09:59 20 mg BID YULIET Administration Hydrochlorothiazide 12.5 mg 02/07/25 10:00 02/07/25 09:58 Hydrochlorothiazide 25 Mg Tab PO 03/09/25 09:59 12.5 mg DAILY YULIET Administration Ondansetron HCl 4 mg 02/07/25 11:27 02/07/25 11:35 Ondansetron Inj 2 Mg/Ml 2 Ml Vial IV 03/09/25 11:26 4 mg Q6H PRN Administration Nausea And Vomiting Rosuvastatin Calcium 20 mg 02/07/25 10:00 02/07/25 09:58 Rosuvastatin Calcium 20 Mg Tab PO 03/09/25 09:59 20 mg QAM YULIET Administration
--- NOTE | 2025-02-07 14:53 | Electrocardiogram Report ---
Test Reason : Blood Pressure : */* mmHG Vent. Rate : 93 BPM Atrial Rate : 93 BPM P-R Int : 160 ms QRS Dur : 64 ms QT Int : 368 ms P-R-T Axes : 17 45 19 degrees QTcB Int : 457 ms Normal sinus rhythm Cannot rule out Inferior infarct , age undetermined Abnormal ECG When compared with ECG of 21-Aug-2024 21:28, Minimal criteria for Inferior infarct are now Present ST no longer depressed in Lateral leads Nonspecific T wave abnormality now evident in Inferior leads Confirmed by Gary Raphael ([id number]) on 02/07/2025 2:53:14 PM Referred By: REFERRED SELF Confirmed By: Gary Raphael
[2025-02-07] MEDS: HEPARIN SOD 5,000 UNIT/0.5 ML VIAL SQ SCH (15:10)
[2025-02-07 19:10] VITALS: RESP 18
[2025-02-08] MEDS: MUPIROCIN 2% OINT 22 GM TUBE EXT SCH (07:15)
--- NOTE | 2025-02-08 13:42 | Hospitalist Progress Note ---
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 Patient started on Cymbalta 30 mg; no tramadol while on cymbalta. On clonazepam 0.25 mg every 8 hour; titrated up as needed. 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 Bactroban/DSD daily topically to open area. Offloading with Globoped shoe. Hyperlipidemiacontinue on rosuvastatin Hypertensionon hold GERDcontinue on omeprazole Full code DVT prophylaxis heparin Please note the above document was generated using voice recognition software. It may contain grammatical, syntax or spelling errors. Any formal questions or concerns about the content, text or information contained within the body of this dictation should be directly addressed to the provider for clarification Admission and Anticipated Discharge Date Admission Date: February 07, 2025 Subjective Patient seen and examined at bedside. She reports that her restless leg syndrome has improved compared to previous day. Review of Systems Review of Systems: All systems reviewed & are unremarkable except as noted in Subjective Physical Exam Physical Exam: On physical examination; Constitutional:comfortable;not in any distress Respiratory: normal respiratory effort, lungs clear to auscultation, no wheeze, rales, rhonchi. Normal insp/exp effort, no accessory muscle use Cardiovascular: RRR, no murmur, no edema Vessels: no JVD or carotid bruit Chest: normal inspection of chest Abdomen: normal bowel sounds, soft, nontender, no hepatosplenomegaly Musculoskeletal: no cyanosis or clubbing, extremities motor strength 5/5 Skin: no rashes, warm and dry normal turgor Neurologic: PERRL, EOMI, accommodation nl, no face palsy, no dysarthria CN's II- XI intact bilaterally and moves all extremities Results & Data Results & Data Vital Signs (Past 12 Hours) Vital Signs Temp Pulse Resp BP Pulse Ox O2 Del Method O2 Flow Rate 02/08/25 09:07 90 Room Air 02/08/25 07:51 36.7 C 67 18 133/76 94 Nasal Cannula 4 02/08/25 07:15 Nasal Cannula 2
[2025-02-08] MEDS: SODIUM CHLORIDE 0.9% 500 ML IV ONE (14:02)
[2025-02-08] MEDS: SODIUM CHLORIDE 0.9% 1,000 ML IV SCH (14:58)
[2025-02-09 08:29] VITALS: BP 156/88; TEMP 98.4; O2SAT 93
[2025-02-09 10:45] LABS: Hematocrit (blood only) 36.3 % (37.0-47.0); Hemoglobin 12.2 g/dl (12.0-16.0); Immature Granulocytes # (auto) 0.02 K/uL (0.01-0.20); Immature Granulocytes % (auto) 0.4 %; Mean Corpuscular Hemoglobin 29.8 pg (25.0-34.0); Mean Corpuscular Volume 88.5 fL (80.0-100.0); Platelet Count 194 K/uL (130-400); RDW Standard Deviation 41.1 fL (36.4-46.3); Red Blood Count 4.10 M/uL (4.20-5.40); White Blood Count 5.46 K/ul (4.8-10.8)
[2025-02-09 11:02] LABS: Alanine Aminotransferase 20.0 U/L (7-52); Albumin Globulin Ratio 1.6 (0.9-2); Alkaline Phosphatase 45.0 U/L (34-104); Anion Gap 4.0 (3-11); Bilirubin,Total 2.0 mg/dl (0.2-1.0); Blood Urea Nitrogen 11.0 mg/dl (6-23); Calcium 9.2 mg/dl (8.6-10.3); Carbon Dioxide 32.0 mmol/L (21-32); Chloride 104.0 mmol/L (98-107); Creatinine Clr Calc Pharmacy 76.8 ml/min; Globulin 2.5 gm/dl (2.5-4.0); Glucose 95.0 mg/dl (70-99(Fasting)); Potassium 3.3 mmol/L (3.5-5.1); Sodium 140.0 mmol/L (136-145); Total Protein 6.6 gm/dl (6.0-8.3)
[2025-02-09 11:18] VITALS: PULSE 77
[2025-02-09] MEDS: POTASSIUM CHLORIDE CRTAB 20 MEQ TABCR PO STA (11:21)
--- NOTE | 2025-02-09 14:04 | Discharge Summary ---
Date of Service February 09, 2025 Admission HPI Per Admitting Provider History obtained from chart review, and interview with the patient Past medical history of hypertension, hyperlipidemia, restless leg syndrome, stage III pressure ulcer of the left foot(following with wound care at [facility]) Patient presents to the hospital with severe calf pain and spasm which started last night. Patient has a history of restless leg syndrome for which she was on ropinirole for last 25 years. Her primary care doctor started to wean her off gradually over the course of last few months; she was previously on 4 mg at night when the tapering was started. On presentation to the ED, patient was treated with Ativan, Toradol, Dilaudid without relief of the pain. After discussion with the pharmacist; patient was given 2.5 mg dose along with 1.5 which provided relief but pain and spasm retu rned. ED referred for admission to the hospital for pain control, neurology consultation. Last seen by [facility] neurology in the past; in October 2022 Admission Exam Per Admitting Provider On physical examination; Constitutional:Appears to be in significant discomfort due to pain/spasm. Standing at the side of the bed Respiratory: normal respiratory effort, lungs clear to auscultation, no wheeze, rales, rhonchi. Normal insp/exp effort, no accessory muscle use Cardiovascular: RRR, no murmur, no edema Vessels: no JVD or carotid bruit Chest: normal inspection of chest Abdomen: normal bowel sounds, soft, nontender, no hepatosplenomegaly Musculoskeletal: no cyanosis or clubbing, extremities motor strength 5/5 Skin: no rashes, warm and dry normal turgor Neurologic: PERRL, EOMI, accommodation nl, no face palsy, no dysarthria CN's II- XI intact bilaterally and moves all extremities Principal Diagnosis On physical examination; Constitutional:Appears to be in significant discomfort due to pain/spasm. Standing at the side of the bed Respiratory: normal respiratory effort, lungs clear to auscultation, no wheeze, rales, rhonchi. Normal insp/exp effort, no accessory muscle use Cardiovascular: RRR, no murmur, no edema Vessels: no JVD or carotid bruit Chest: normal inspection of chest Abdomen: normal bowel sounds, soft, nontender, no hepatosplenomegaly Musculoskeletal: no cyanosis or clubbing, extremities motor strength 5/5 Skin: no rashes, warm and dry normal turgor Neurologic: PERRL, EOMI, accommodation nl, no face palsy, no dysarthria CN's II- XI intact bilaterally and moves all extremities Discharge Exam On physical examination; Constitutional:comfortable;not in any distress Respiratory: normal respiratory effort, lungs clear to auscultation, no wheeze, rales, rhonchi. Normal insp/exp effort, no accessory muscle use Cardiovascular: RRR, no murmur, no edema Vessels: no JVD or carotid bruit Chest: normal inspection of chest Abdomen: normal bowel sounds, soft, nontender, no hepatosplenomegaly Musculoskeletal: no cyanosis or clubbing, extremities motor strength 5/5 Skin: no rashes, warm and dry normal turgor Neurologic: PERRL, EOMI, accommodation nl, no face palsy, no dysarthria CN's II- XI intact bilaterally and moves all extremities Discharge Data Allergies Allergy/AdvReac Type Severity Reaction Status Date / Time Sulfa (Sulfonamide Allergy Intermediate Hives Verified 02/19/24 20:49 Antibiotics) diphenhydramine AdvReac Severe RESTLESS Verified 02/19/24 20:49 [From Benadryl] LEG FLARE UP Consultations 02/07/25 07:37 ED Decision to Admit Stat 02/07/25 08:38 Consult Neurology Routine Ordered Studies 02/07/25 09:39 US venous duplex leg [US venous doppler LE ] Routine Hospital Course (1) Restless leg syndrome: Plan Assessment/plan 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 Patient started on C ymbalta 30 mg; no tramadol while on cymbalta. On clonazepam 0.25 mg every 8 hour; titrated up as needed. I discussed dependence potential and asked patient to minimize use as much as possible. Patient's pain discomfort spasm resolved during the hospitalization. Patient was recommended to continue taper of Requip. Patient's prescription for requip 4 mg was canceled by calling the pharmacy. Patient discharged on 1.5 mg of Requip with plan to taper as per her PCP. Orthostatic hypotensionpatient reported dizziness while standing up on February 08, 2025; patient was given IV fluid with resolution of dizziness. recommended to hold hctz for 2 more days; encourage oral fluid intake Stage III pressure ulcer of left heel, POA Started after fracture of her ankle in late August 2024 and was placed on a cast which she rubbed and irritated her. Bactroban/DSD daily topically to open area. Offloading with Globoped shoe. Please note the above document was generated using voice recognition software. It may contain grammatical, syntax or spelling errors. Any formal questions or concerns about the content, text or information contained within the body of this dictation should be directly addressed to the provider for clarification Total Time Total Time Spent Total Time Spent (In Minutes): 45 Total Time Includes: Examination of the Patient, Discharge Planning, Medication Reconciliation, Communication With Other Providers and Other Discharge Plan Discharge Items Patient Disposition: Home - Self-Care Reason For Visit: RESTLESS LEG Discharge Diagnosis: Restless leg syndrome Condition on Discharge: Fair Activity: Resume your previous activity Non-emergency contact: Primary Care Provider Call non-emergency contact if: you have any medication questions and your symptoms worsen Follow-up/Referrals: Renzo Rubin MD [Primary Care Provider] - (Date & Time 02/14/2025 10:40 AM Provider: Tristan Robertson PA-C [facility] [place], [facility] ) Diet: Regular Addtl Attending Provider Instructions: You were admitted to the hospital due to pain and cramping of the legs. Your evaluated by neurologist during the hospitalization. They recommended to continue to taper Requip as your primary care doctor was doing. They recommended you to be started on Cymbalta ( duloxetine) 30 mg to be taken once a day for pain control. They also recommended clonazepam 0.25 mg as needed for spasm/pain. Please limit the use of clonazepam as it has risks of dependence/sleepiness. Follow-up with your primary care doctor as scheduled. Hold off on taking hydrochlorothiazide until Wednesday Pending Studies at Discharge: No Stand-Alone Forms: My [facility], Smoking Cessation Medications and DC Order Prescriptions: New clonazepam 0.25 mg Tablet,Disintegrating 0.25 mg PO Q8H PRN (Reason: spasms) Qty: 15 0RF duloxetine 30 mg Capsule,Delayed Release(Dr/Ec) 30 mg PO QAM Qty: 30 0RF Continued rosuvastatin 20 mg tablet 20 mg PO QAM omeprazole 40 mg capsule,delayed release(DR/EC) 40 mg PO DAILYBB fluorometholone 0.1 % drops,suspension 1 drp OPB UD Rx Instructions: original:1 drp opb bid 02/07- no fill history unable to verify famotidine 20 mg tablet 20 mg PO BID lidocaine [Lidoderm] 5 % adhesive patch,medicated 1 patch topical DAILY PRN (Reason: Pain) Rx Instructions: leave on most painful area for up to 12 hrs 02/07- otc unable to verify ropinirole 1 mg tablet 1 mg PO UD Rx Instructions: Filled 01/19 60 day supply #60. Take with 0.5mg for 30 days then 1 mg po daily ropinirole 0.5 mg tablet 0.5 mg PO UD Rx Instructions: Filled 01/19 30 day supply #30. Take with 0.5mg nightly or 30 days ondansetron 4 mg tablet,disintegrating 4 mg PO UD PRN (Reason: nausea and vomiting) Rx Instructions: original:4mg po q8h prn 02/07- no fill history unable to verify Held hydrochlorothiazide 12.5 mg capsule 12.5 mg PO DAILY Hold Instructions: Resume on 02/12/25. Discharge Orders: Discharge Order (Routine); Ordered 02/09/25 Ordered By: Daniel Lindsey Admission Data Admit Date/Time: 02/07/25 08:38 Attending Provider: Daniel Lindsey Admit Provider: Daniel Lindsey Primary Care Provider: Renzo Rubin Other Providers: Daniel Lindsey; Mike Nieves Other Interventions: Discharge Summary Assessment (RN) Last Done: 02/09/25 11:16
== END 2025-02-09 14:02 | disposition home or self-care (01) | DRG 896 ==
LOC: ED 03:27 → 3N 08:38 → INTOOBSV 08:38 → 3N 09:36

== ENCOUNTER 2025-02-10 11:00 | Observation (INO) ==
[2025-02-10 12:33] LABS: Anion Gap 10.0 (3-11); Bilirubin,Total 2.1 mg/dl (0.2-1.0); Calcium 9.7 mg/dl (8.6-10.3); Carbon Dioxide 26.0 mmol/L (21-32); Chloride 103.0 mmol/L (98-107); Magnesium 1.8 mg/dl (1.7-2.4); Potassium 4.0 mmol/L (3.5-5.1); Sodium 139.0 mmol/L (136-145)
[2025-02-10 12:37] LABS: Alanine Aminotransferase 20.0 U/L (7-52); Albumin Globulin Ratio 1.3 (0.9-2); Alkaline Phosphatase 54.0 U/L (34-104); Blood Urea Nitrogen 7.0 mg/dl (6-23); Creatinine Clr Calc Pharmacy 89.2 ml/min; Globulin 3.3 gm/dl (2.5-4.0); Glucose 94.0 mg/dl (70-99(Fasting)); Total Protein 7.6 gm/dl (6.0-8.3)
[2025-02-10 12:39] LABS: Appearance Urine Clear (Clear); Bacteria Urine Automated None Seen (None Seen); Cast Urine Automated 0-2 /lpf (0-2); Epithelial Cell Urine Auto 0-2 /hpf (0-2); Glucose Urine UA Negative (Negative); RBC Urine Automated 0-2 /hpf (0-2); WBC Urine Automated 0-5 /hpf (0-5)
--- NOTE | 2025-02-10 12:39 | Emergency Department Note ---
Impression & Plan Headache, Restless legs syndrome, Intractable pain ED Provider Note HISTORY OF PRESENT ILLNESS: Patient is a 64-year-old female presenting with headache. Patient was discharged from the hospital yesterday after being admitted for her persistent restless leg syndrome. Patient reports that since 02/08/2025, she has been having a headache. She states that she had reported in the hospital that she was having episodes of dizziness and lightheadedness with her headache. She reports that she was to hold her blood pressure medication and noted that her blood pressure was significantly elevated today. She was started on Cymbalta for her restless leg syndrome in the hospital. She states that she feels like she has been urinating quite frequently and feeling like she constantly has to urinate. She states that she thinks she might be dehydrated. She was at convenient [facility] with [facility] today and given her elevated blood pressure and symptoms, they referred her to the emergency department. Patient reports her bilateral ankles have also been swollen start since starting the Cymbalta. Denies any chest pain or shortness of breath. No reported fevers. Denies any abdominal pain, nausea or vomiting. ROS: as above PHYSICAL EXAM: Constitutional: Patient appears in no acute distress. HENT: Head: Normocephalic and atraumatic. Eyes: EOMI, PERRL Mouth/Throat: Mucous membranes moist. Neck: Trachea midline. Neck supple. Cardiovascular: RRR, No murmurs, rubs or gallops. Intact distal pulses. Pulmonary/Chest: No respiratory distress. Breath sounds clear and equal bilaterally. No wheezes or rales. Abdominal: Abdomen soft, no tenderness, rebound or guarding. Musculoskeletal: No tenderness or deformity noted. Trace edema of the bilateral ankles. Skin: Warm and dry. No rash, erythema, pallor or cyanosis Psychiatric: Appropriate mood and affect for situation. Neurological: Alert and keenly responsive. CN II-XII grossly intact, moving all extremities equally and fully. MDM: - Vitals signs showed hypertension - History obtained via patient. History as above. - Chronic conditions affecting care: HTN; IBS - Differential diagnoses include, but are not limited to: CVA; intracranial hemorrhage; medication side effect; primary headache; CVA; intracranial hemorrhage; ACS; ACS; electrolyte abnormality - Order placed for continuous cardiac monitoring. At this time, monitor showed rate of 105 bpm with normal sinus rhythm, per my interpretation. - External medical records reviewed. Discharge summary dated 02/2025 was reviewed. Patient was admitted for restless leg syndrome. Patient was admitted for persistent restless leg syndrome and orthostatic hypotension. - EKG image interpreted by myself showed normal sinus rhythm. Rate 77 bpm. QT 394. No acute ischemic changes. - Laboratory workup interpreted by myself showed normal WBC; stable electrolytes; normal troponin; normal BNP - UA negative for infection - CT head wo contrast negative for acute intracranial pathology - Patient initially given 1 L normal saline, 5 mg IV Compazine and 0.5 mg of IV Ativan. However, she is still complaining of headache and now complaining of bilateral lower leg pain and persistent restless leg syndrome. She was given 4 mg IV morphine. She is still complaining of significant pain, both lower leg and headache, on reassessment. Given patient's intractable pain, will admit again to the hospitalist service. - Discussion was had with top case assembler about patient's case and need for admission - Hospitalist, Dr. Vora, consulted for admission - Patient admitted to [facility] hospitalist service for further evaluation and management. ASSESSMENT AND PLAN: Diagnosis: headache; intractable pain; restless leg syndrome Plan: admit Past Med/Surg History Problem List (Updated 02/10/25 @ 16:50 by Naomi Barlow MD) Intractable pain (Acute) Restless legs syndrome (Acute) Headache (Acute) Hypertensive urgency Muscle spasm of both lower legs Dehydration (Acute) Restless leg syndrome (Acute) Osteoarthritis, knee Encounter for pre-operative examination Dizziness Left foot pain Left knee DJD Vertigo History of colonoscopy Heart murmur has had for several yrs Restless leg syndrome Migraine Nausea vomiting and diarrhea (Acute) Hypertension (Chronic) Medical History IBS (irritable bowel syndrome) History of COVID-19 Aug 16, 2021 at [place] > cough, sinus pressure/pain Arthropathies DDD (degenerative disc disease) Diverticular disease GERD (gastroesophageal reflux disease) Hx of vertigo no current issues Surgical History History of cataract surgery LEFT History of section x1 History of dilatation and curettage History of arthroscopy left shoulder History of tooth extraction Hx of LASIK Hx of tubal ligation Family History Father Diabetes Sister Colon cancer Social History Smoking Status: Never smoker Second Hand Exposure: No; Do You Dip or Chew Tobacco: No; Hx Alcohol Use: No Hx Substance Use: No Preferred Language: Tunisian Communication Ability: Effective Insurance Appraiser Required: No Beliefs That Will Affect Care: None Current Living Situation: Spouse Current Living Situation Comment: Partner Guille Feels Safe at Home: Yes Assistive Devices: Cane and Walker Allergies Allergies Allergy/AdvReac Type Severity Reaction Status Date / Time Sulfa (Sulfonamide Allergy Intermediate Hives Verified 02/19/24 20:49 Antibiotics) diphenhydramine AdvReac Severe RESTLESS Verified 02/19/24 20:49 [From Benadryl] LEG FLARE UP Home Meds Home Medications Medication Instructions Recorded Confirmed omeprazole 40 mg capsule,delayed 40 mg PO DAILYBB 04/09/23 02/10/25 release rosuvastatin 20 mg tablet 20 mg PO QAM 04/09/23 02/10/25 fluorometholone 0.1 % eye 1 drp OPB BID 08/09/23 02/10/25 drops,suspension famotidine 20 mg tablet 20 mg PO BID 11/19/23 02/10/25 lidocaine 5 % topical patch 1 patch topical DAILY PRN Pain 02/19/24 02/10/25 (Lidoderm) hydrochlorothiazide 12.5 mg capsule 12.5 mg PO DAILY 02/07/25 02/10/25 ondansetron 4 mg disintegrating 4 mg PO UD PRN nausea and vomiting 02/07/25 02/10/25 tablet ropinirole 0.5 mg tablet 0.5 mg PO DAILY 02/07/25 02/10/25 ropinirole 1 mg tablet 1 mg PO DAILY 02/07/25 02/10/25 mupirocin 2 % topical ointment 1 applic topical DIRECTED 02/10/25 02/10/25 Previous Rx's Medication Instructions Recorded clonazepam 0.25 mg disintegrating 0.25 mg PO Q8H PRN spasms #15 tabs 02/08/25 tablet duloxetine 30 mg capsule,delayed 30 mg PO QAM #30 caps 02/08/25 release Results & Data (ED) Vital Signs Vital Signs - 24 hr 02/10/25 11:04 02/10/25 12:00 02/10/25 12:22 Temperature 36.7 C Temperature Source Temporal Artery Scan Pulse Rate 77 75 Pulse Rate [Apical] 84 Respiratory Rate 20 18 Respiratory Effort / Characteristics Non-Labored Non-Labored Spontaneous Respiratory Depth Normal Normal Respiratory Pattern Regular Blood Pressure 197/119 H Blood Pressure [Right Arm] 172/123 H Blood Pressure Mean 145 Blood Pressure Mean [Right Arm] 139 Blood Pressure Position [Right Arm] Sitting Pulse Oximetry 97 96 Oxygen Delivery Method Room Air Room Air Sepsis Recent Fever Within 48 Hours No Sepsis New/Unexplained Change in Mental Status No Sepsis Action Taken by Nursing No Action Required 02/10/25 13:00 02/10/25 14:00 02/10/25 15:53 Temperature Temperature Source Pulse Rate Pulse Rate [Apical] 87 99 H 104 H Respiratory Rate 18 18 24 Respiratory Effort / Characteristics Non-Labored Spontaneous Non-Labored Spontaneous Respiratory Depth Normal Normal Respiratory Pattern Regular Regular Blood Pressure Blood Pressure [Right Arm] 149/90 H 164/87 H 172/108 H Blood Pressure Mean Blood Pressure Mean [Right Arm] 109 112 129 Blood Pressure Position [Right Arm] Pulse Oximetry 98 96 98 Oxygen Delivery Method Room Air Room Air Room Air Sepsis Recent Fever Within 48 Hours Sepsis New/Unexplained Change in Mental Status Sepsis Action Taken by Nursing 02/10/25 16:38 Temperature Temperature Source Pulse Rate 108 H Pulse Rate [Apical] Respiratory Rate Respiratory Effort / Characteristics Respiratory Depth Respiratory Pattern Blood Pressure 186/99 H Blood Pressure [Right Arm] Blood Pressure Mean Blood Pressure Mean [Right Arm] Blood Pressure Position [Right Arm] Pulse Oximetry Oxygen Delivery Method Sepsis Recent Fever Within 48 Hours Sepsis New/Unexplained Change in Mental Status Sepsis Action Taken by Nursing Laboratory Data 02/10/25 11:18 02/10/25 11:18 Lab Results 02/10/25 02/10/25 Range/Units 11:18 12:09 WBC 6.04 (4.8-10.8) K/ul RBC 4.50 (4.20-5.40) M/uL Hgb 13.4 (12.0-16.0) g/dl Hct 39.4 (37.0-47.0) % MCV 87.6 (80.0-100.0) fL MCH 29.8 (25.0-34.0) pg MCHC 34.0 (32.0-36.0) g/dL RDW Std Deviation 41.1 (36.4-46.3) fL RDW Coeff of Melissa 13.0 (11.5-14.5) % Plt Count 146 (130-400) K/uL MPV 12.1 (9.4-12.4) fL Immature Gran % (Auto) 0.5 % Neut % (Auto) 65.8 % Lymph % (Auto) 21.5 % [place] % (Auto) 10.4 % Eos % (Auto) 1.0 % Baso % (Auto) 0.8 % Neut # (Auto) 3.97 (1.40-6.50) K/uL Lymph # (Auto) 1.30 (1.20-3.40) K/uL [place] # (Auto) 0.63 H (0.11-0.59) K/uL Eos # (Auto) 0.06 (0.00-0.50) K/uL Baso # (Auto) 0.05 (0.00-0.20) K/uL Immature Gran # (Auto) 0.03 (0.01-0.20) K/uL Platelet Estimate Normal (Normal) Sodium 139 (136-145) mmol/L Potassium 4.0 D (3.5-5.1) mmol/L Chloride 103 (98-107) mmol/L Carbon Dioxide 26 (21-32) mmol/L Anion Gap 10 (3-11) BUN 7 (6-23) mg/dl Creatinine 0.64 (0.6-1.2) mg/dl Est Cr Clr Drug Dosing 89.2 ml/min eGFR 98.01 BUN/Creatinine Ratio 10.9 (10-20) Glucose 94 (70-99(Fasting)) mg/dl Calcium 9.7 (8.6-10.3) mg/dl Magnesium 1.8 (1.7-2.4) mg/dl Total Bilirubin 2.1 H (0.2-1.0) mg/dl AST 31 (13-39) U/L ALT 20 (7-52) U/L Alkaline Phosphatase 54 (34-104) U/L Troponin I High Sens 3.3 (0-14) pg/ml B-Natriuretic Peptide 92 (0-100) pg/ml Total Protein 7.6 (6.0-8.3) gm/dl Albumin 4.3 (3.4-5.0) gm/dl Globulin 3.3 (2.5-4.0) gm/dl Albumin/Globulin Ratio 1.3 (0.9-2) Urine Color Yellow Urine Appearance Clear (Clear) Urine pH 8.0 H (4.5-7.5) Ur Specific [place] 1.005 (1.000-1.030) Urine Protein Negative (Negative) Urine Glucose (UA) Negative (Negative) Urine Ketones Negative (Negative) Urine Blood Negative (Negative) Urine Nitrite Negative (Negative) Urine Bilirubin Negative (Negative) Urine Urobilinogen Negative (Negative) Ur Leukocyte Esterase Trace H (Negative) Urine WBC (Auto) 0-5 (0-5) /hpf Urine RBC (Auto) 0-2 (0-2) /hpf U Hyaline Cast (Auto) 0-2 (0-2) /lpf U Epithel Cells (Auto) 0-2 (0-2) /hpf Urine Bacteria (Auto) None Seen (None Seen) Urine Comment Administered Medications Discontinued Medications Baclofen (Baclofen 10 Mg Tab) 10 mg PO NOW STA Stop: 02/10/25 16:11 Last Admin: 02/10/25 16:48 Dose: 10 mg Documented By: BABAK Sodium Chloride (Nss) 1,000 mls @ 999 mls/hr IV .Q1H1M ONE Stop: 02/10/25 13:24 Last Infusion: 02/10/25 13:55 Dose: Infused Documented By: Admin: 02/10/25 12:54 Dose: 999 mls/hr Documented By: JAYDEN Prochlorperazine (Compazine) 1 mls @ 1 mls/min IV ONE ONE Stop: 02/10/25 12:25 Last Admin: 02/10/25 12:54 Dose: 1 mls/min Documented By: JAYDEN Lorazepam (Lorazepam 2 Mg/1 Ml Vial) 0.5 mg IV NOW STA Stop: 02/10/25 12:26 Last Admin: 02/10/25 12:55 Dose: 0.5 mg Documented By: JAYDEN Metoprolol Tartrate (Metoprolol Tartrate 1 Mg/Ml Vial) 5 mg IV NOW STA Stop: 02/10/25 16:34 Last Admin: 02/10/25 16:38 Dose: 5 mg Documented By: BABAK Morphine Sulfate (Morphine Sulfate 4 Mg/Ml 1 Ml Carp\Vial) 4 mg IV NOW STA Stop: 02/10/25 14:41 Last Admin: 02/10/25 14:43 Dose: 4 mg Documented By: [facility] Imaging Data Radiologist's Impression: Head CT 02/10/25 13:38 CT SCAN OF THE BRAIN WITHOUT IV CONTRAST CLINICAL HISTORY: Headache. Dizziness. Hypertension. COMPARISON STUDY: MRI of the brain February 24, 2020. Head CT February 19, 2024. TECHNIQUE: Unenhanced axial CT scan of the brain was performed from the vertex to the skull base. A dose lowering technique was utilized adhering to the principles of ALARA. CT DOSE: 625.8 mGy.cm FINDINGS: Brain parenchyma: No acute intracranial hemorrhage, midline shift or mass effect is present. Freeman-white matter differentiation is preserved. There are no extra- axial fluid collections. There are no findings to suggest acute dural sinus thrombosis or acute territorial infarct. Ventricles, sulci, cisterns: There is no hydrocephalus. The basal cisterns are patent. Calvarium: Unremarkable. Sinuses and mastoids: The visualized paranasal sinuses are clear. The mastoid air cells are well pneumatized. Orbits: The bony orbits are grossly intact. IMPRESSION: No acute intracranial findings. ACT 112: Negative or not required by law. Electronically signed by: Shreyas De Luna M.D. 02/10/2025 2:50 PM Discharge Plan Visit Data Chief Complaint: Hypertension Stated Complaint: DEHYDRATION,HIGH BP,SIDE EFFECTS OF MED ED Provider: Naomi Barlow Discharge Problem: Headache, Restless legs syndrome, Intractable pain Condition: Fair Forms Stand Alone Forms: My [facility] [employer] Prescriptions Prescriptions: No Action rosuvastatin 20 mg tablet 20 mg PO QAM omeprazole 40 mg capsule,delayed release(DR/EC) 40 mg PO DAILYBB fluorometholone 0.1 % drops,suspension 1 drp OPB BID famotidine 20 mg tablet 20 mg PO BID lidocaine [Lidoderm] 5 % adhesive patch,medicated 1 patch topical DAILY PRN (Reason: Pain) Rx Instructions: leave on most painful area for up to 12 hrs 7/2- otc unable to verify mupirocin 2 % ointment 1 applic TOPICAL DIRECTED ropinirole 1 mg tablet 1 mg PO DAILY Rx Instructions: take with 0.5mg ropinirole 0.5 mg tablet 0.5 mg PO DAILY Rx Instructions: take with 1mg hydrochlorothiazide 12.5 mg capsule 12.5 mg PO DAILY Hold Instructions: Resume on 02/12/25. ondansetron 4 mg tablet,disintegrating 4 mg PO UD PRN (Reason: nausea and vomiting) clonazepam 0.25 mg Tablet,Disintegrating 0.25 mg PO Q8H PRN (Reason: spasms) Qty: 15 0RF duloxetine 30 mg Capsule,Delayed Release(Dr/Ec) 30 mg PO QAM Qty: 30 0RF Referrals Referrals: Renzo Rubin MD [Primary Care Provider] -
[2025-02-10 12:40] LABS: Hematocrit (blood only) 39.4 % (37.0-47.0); Hemoglobin 13.4 g/dl (12.0-16.0); Mean Corpuscular Hemoglobin 29.8 pg (25.0-34.0); Mean Corpuscular Volume 87.6 fL (80.0-100.0); RDW Standard Deviation 41.1 fL (36.4-46.3); Red Blood Count 4.50 M/uL (4.20-5.40); White Blood Count 6.04 K/ul (4.8-10.8)
[2025-02-10 12:41] LABS: Platelet Count 146 K/uL (130-400)
[2025-02-10 12:42] LABS: Immature Granulocytes # (auto) 0.03 K/uL (0.01-0.20); Immature Granulocytes % (auto) 0.5 %
[2025-02-10] MEDS: SODIUM CHLORIDE 0.9% 1,000 ML IV ONE (12:54)
[2025-02-10] MEDS: PROCHLORPERAZINE 1 ML IV ONE (12:54)
[2025-02-10] MEDS: MoRPHine SULFATE 4 MG/ML 1 ML CARP\\VIAL IV STA (14:43)
--- NOTE | 2025-02-10 14:51 | CT Scan Report ---
CT SCAN OF THE BRAIN WITHOUT IV CONTRAST CLINICAL HISTORY: Headache. Dizziness. Hypertension. COMPARISON STUDY: MRI of the brain February 24, 2020. Head CT February 19, 2024. TECHNIQUE: Unenhanced axial CT scan of the brain was performed from the vertex to the skull base. A dose lowering technique was utilized adhering to the principles of ALARA. CT DOSE: 625.8 mGy.cm FINDINGS: Brain parenchyma: No acute intracranial hemorrhage, midline shift or mass effect is present. Freeman-whi te matter differentiation is preserved. There are no extra-axial fluid collections. There are no find ings to suggest acute dural sinus thrombosis or acute territorial infarct. Ventricles, sulci, cisterns: There is no hydrocephalus. The basal cisterns are patent. Calvarium: Unremarkable. Sinuses and mastoids: The visualized paranasal sinuses are clear. The mastoid air cells are well pneu matized. Orbits: The bony orbits are grossly intact. IMPRESSION: No acute intracranial findings. ACT 112: Negative or not required by law. Electronically signed by: Shreyas De Luna M.D. 02/10/2025 2:50 PM
--- NOTE | 2025-02-10 16:33 | History & Physical Report ---
Date of Service February 10, 2025 Assessment & Plan (1) Muscle spasm of both lower legs: Plan: History of significant restless leg syndrome controlled with Requip 4 mg at night for many years Was in the hospital recently on second of this month with calf pain and the leg tube was decreased to 1.5 mg in a view to wean off and she was also given Cymbalta to pain control She is back today with increasing headache and also very high blood pressure and dizziness Noted to have increasing pain in the calves that she has been very unstable in the emergency room She received lorazepam 0.5 mg IV and also morphine 4 mg IV on arrival She was given 10 mg baclofen now and see the effect of it and will hold off any Cymbalta and will increase the dose of the cube to 3 mg at night and with tapering down gradually Will hold off any statin for now Will give baclofen 5 mg 3 times daily as needed Continue clonazepam 0.5 mg every 8 hourly as needed (2) Restless leg syndrome: Plan: Has been under keep 4 mg at night for many years Will decrease to 3 mg at night and wean off gradually (3) Hypertensive urgency: Plan: During her last admission she was noted to have hypotension and her BP medication was discontinued except hydrochlorothiazide 12.5 mg Her blood pressure was very high at home with dizziness and headache Blood pressure remains elevated during examination at 172/108 in part due to pain Will try 5 mg IV Lopressor and monitor the blood pressure Plan to give oral antihypertensive if blood pressure remains persistently high (4) Migraine: Plan: Presented with headache which is better now and CT of the head was unremarkable Plan DVT prophylaxis subcu Lovenox CODE STATUS full History of Present Illness Chief Complaint: Headache, dizziness and high blood pressure Primary Care Provider: Renzo Rubin MD She is a 64-year-old female with significant past medical history of significant restless leg syndrome 1 review of 40 mg at night for many many years, hypertension, hyperlipidemia, migraine apparently was in hospital recently admitted on 03-02 for severe calf pain and restless this syndrome. She was evaluated by neurologist and Cymbalta was prescribed and Requip was decreased to 1.5 mg daily on discharge. She has been complaining of increasing headache, dizziness and noted to have very high blood pressure at home and came to the emergency room. Her calf pain was ongoing but happened to be very severe in the emergency room that she was very restless even after getting morphine 4 mg IV and lorazepam 0.5 mg IV. During my examination she was having severe spasmodic pain in the calves and remain hypertensive though the headache has improved. She feels that she has been having side effect from Cymbalta and also withdrawal from Requip. she has been very unstable to discharge and was admitted for continuation of care. Allergies Allergy/AdvReac Type Severity Reaction Status Date / Time Sulfa (Sulfonamide Allergy Intermediate Hives Verified 02/19/24 20:49 Antibiotics) diphenhydramine AdvReac Severe RESTLESS Verified 02/19/24 20:49 [From Benadryl] LEG FLARE UP Home Medications Medication Instructions Recorded Confirmed Type omeprazole 40 mg capsule,delayed 40 mg PO DAILYBB 04/09/23 02/10/25 History release rosuvastatin 20 mg tablet 20 mg PO QAM 04/09/23 02/10/25 History fluorometholone 0.1 % eye 1 drp OPB BID 08/09/23 02/10/25 History drops,suspension famotidine 20 mg tablet 20 mg PO BID 11/19/23 02/10/25 History lidocaine 5 % topical patch 1 patch topical DAILY PRN Pain 02/19/24 02/10/25 History (Lidoderm) hydrochlorothiazide 12.5 mg capsule 12.5 mg PO DAILY 02/07/25 02/10/25 History ondansetron 4 mg disintegrating 4 mg PO UD PRN nausea and vomiting 02/07/25 02/10/25 History tablet ropinirole 0.5 mg tablet 0.5 mg PO DAILY 02/07/25 02/10/25 History ropinirole 1 mg tablet 1 mg PO DAILY 02/07/25 02/10/25 History clonazepam 0.25 mg disintegrating 0.25 mg PO Q8H PRN spasms #15 tabs 02/08/25 02/10/25 Rx tablet duloxetine 30 mg capsule,delayed 30 mg PO QAM #30 caps 02/08/25 02/10/25 Rx release mupirocin 2 % topical ointment 1 applic topical DIRECTED 02/10/25 02/10/25 History Past Med/Surg History Problem List (Updated 02/10/25 @ 16:32 by Jared Vora MD) Hypertensive urgency Muscle spasm of both lower legs Dehydration (Acute) Restless leg syndrome (Acute) Osteoarthritis, knee Encounter for pre-operative examination Dizziness Left foot pain Left knee DJD Vertigo History of colonoscopy Heart murmur has had for several yrs Restless leg syndrome Migraine Nausea vomiting and diarrhea (Acute) Hypertension (Chronic) Medical History IBS (irritable bowel syndrome) History of COVID-19 Aug 16, 2021 at [place] > cough, sinus pressure/pain Arthropathies DDD (degenerative disc disease) Diverticular disease GERD (gastroesophageal reflux disease) Hx of vertigo no current issues Surgical History History of cataract surgery LEFT History of section x1 History of dilatation and curettage History of arthroscopy left shoulder History of tooth extraction Hx of LASIK Hx of tubal ligation Family History Father Diabetes Sister Colon cancer Social History Smoking Status: Never smoker Second Hand Exposure: No; Do You Dip or Chew Tobacco: No; Hx Alcohol Use: No Hx Substance Use: No Preferred Language: Uzbek Communication Ability: Effective Circular Knitter Required: No Beliefs That Will Affect Care: None Current Living Situation: Spouse Current Living Situation Comment: Partner Guille Feels Safe at Home: Yes Assistive Devices: Cane and Walker Review of Systems Review of Systems: All systems reviewed and are unremarkable except as noted below Physical Exam Physical Exam: Cannot lie on the bed due to severe spasmodic pain in the calves that she needs to stand up and move the legs to ease the pain but not getting any better Constitutional: well developed, well nourished, + ill appearing and + obese Eyes: PERRL, conjunctivae normal, anicteric sclerae ENMT: external ear and nose normal, oropharynx normal Neck: trachea midline, no thyromegaly Respiratory: no respiratory distress Auscultation: lungs clear to ausculta tion bilaterally; no crackles Cardiovascular: Rate/Rhythm: regular rate, regular rhythm and + tachycardic Heart Sounds: normal S1, normal S2 and + murmur Extremities: + edema ( trace edema bilaterally) Gastrointestinal (Abdomen): Inspection/Auscultation: normal bowel sounds and + abdominal edema; abdomen not distended Percussion/Palpation: abdomen soft; abdomen nontender Musculoskeletal: No acute arthritis involving any of the joint. but tenderness in the calves Neurologic: normal touch/pain/proprioception, moves all extremities and + focal motor deficit Lymphatic: no cervical or axillary lymphadenopathy Results & Data Results & Data Vital Signs (Past 12 Hours) Vital Signs Temp Pulse Pulse Resp BP BP Pulse Ox 02/10/25 15:53 104 H 24 172/108 H 98 02/10/25 14:00 99 H 18 164/87 H 96 02/10/25 13:00 87 18 149/90 H 98 02/10/25 12:22 75 02/10/25 12:00 84 18 172/123 H 96 02/10/25 11:04 36.7 C 77 20 197/119 H 97 O2 Del Method 02/10/25 15:53 Room Air 02/10/25 14:00 Room Air 02/10/25 13:00 Room Air 02/10/25 12:22 02/10/25 12:00 Room Air 02/10/25 11:04 Room Air Laboratory Results Short CBC 02/10/25 Range/Units 11:18 WBC 6.04 (4.8-10.8) K/ul Hgb 13.4 (12.0-16.0) g/dl Hct 39.4 (37.0-47.0) % Plt Count 146 (130-400) K/uL BMP 02/10/25 11:18 Sodium 139 Potassium 4.0 D Chloride 103 Carbon Dioxide 26 BUN 7 Creatinine 0.64 Glucose 94 Calcium 9.7 Liver Function 02/10/25 Range/Units 11:18 Total Bilirubin 2.1 H (0.2-1.0) mg/dl AST 31 (13-39) U/L ALT 20 (7-52) U/L Alkaline Phosphatase 54 (34-104) U/L Albumin 4.3 (3.4-5.0) gm/dl Urine 02/10/25 Range/Units 12:09 Urine Color Yellow Urine Appearance Clear (Clear) Urine pH 8.0 H (4.5-7.5) Ur Specific [place] 1.005 (1.000-1.030) Urine Protein Negative (Negative) Urine Glucose (UA) Negative (Negative)
[2025-02-10] MEDS: METOPROLOL TARTRATE 1 MG/ML VIAL IV STA (16:38)
[2025-02-10] MEDS: BACLOFEN 10 MG TAB PO STA (16:48)
[2025-02-10] MEDS: ENOXAPARIN INJ 40 MG/0.4 ML SYR SQ ONE (17:32)
[2025-02-10] MEDS: KETOROLAC TROMETHAMINE 15 MG/ML VIAL IV ONE (17:59)
[2025-02-10] MEDS: DICLOFENAC SOD 1% GEL 100 GM TUBE EXT SCH (19:55)
[2025-02-10] MEDS: FAMOTIDINE 20 MG TAB PO SCH (19:55)
[2025-02-10] MEDS: BACLOFEN 10 MG TAB PO SCH (19:55)
[2025-02-10] MEDS: REMOVE LIDODERM PATCH SCH (19:56)
[2025-02-10] MEDS: HYDROmorphone INJ 0.5 MG/0.5 ML SYR IV STA (19:57)
[2025-02-11] MEDS: ACETAMINOPHEN 325 MG TAB PO PRN (05:06)
[2025-02-11] MEDS: clonazePAM 0.25 MG OD TAB PO PRN (07:25)
[2025-02-11] MEDS: LIDOCAINE 5% 1 PATCH TD PRN (09:21)
[2025-02-11] MEDS: hydroCHLOROthiazide 25 MG TAB PO SCH (09:22)
--- NOTE | 2025-02-11 10:08 | Hospitalist Progress Note ---
Date of Service February 11, 2025 Assessment & Plan (1) Muscle spasm of both lower legs: (2) Restless leg syndrome: Plan: History of significant restless leg syndrome controlled with Requip 4 mg at night for many years Was in the hospital recently on second of this month with calf pain and the leg tube was decreased to 1.5 mg in a view to wean off and she was also given Cymbalta to pain control Patient presented to the hospital with headache and high blood pressure; reported recurrence of pain in her calf after getting Ativan in the ED. Continue on Requip 1.5 mg at bedtime; continue on baclofen and clonazepam as needed. Duloxetine and rosuvastatin stopped (3) Hypertensive urgency: Plan: During her last admission she was noted to have hypotension and her BP medication was discontinued except hydrochlorothiazide 12.5 mg Will start her on lisinopril hydrochlorothiazide combination monitor blood pressure (4) Migraine: Plan: Presented with headache which is better now and CT of the head was unremarkable Plan DVT prophylaxis subcu Lovenox CODE STATUS full Admission and Anticipated Discharge Date Admission Date: February 10, 2025 Subjective Patient seen and examined at bedside. She reports that her pain in crampiness in her bilateral lower extremity has improved. Headache has improved as well. Blood pressure overall improving trend. Review of Systems Review of Systems: All systems reviewed & are unremarkable except as noted in Subjective Physical Exam Physical Exam: Constitutional: WD/WN, vitals as above, NAD, sitting up in bed, pleasant, conversing easily Respiratory: normal respiratory effort, lungs clear to auscultation, no wheeze, rales, rhonchi. Normal insp/exp effort, no accessory muscle use Cardiovascular: RRR, no murmur, no edema Vessels: no JVD or carotid bruit Chest: normal inspection of chest Abdomen: normal bowel sounds, soft, nontender, no hepatosplenomegaly Musculoskeletal: no cyanosis or clubbing, extremities motor strength 5/5 Skin: no rashes, warm and dry normal turgor Neurologic: PERRL, EOMI, accommodation nl, no face palsy, no dysarthria CN's II- XI intact bilaterally and moves all extremities Psychiatric: A+Ox3, euthymic affect Results & Data Results & Data Vital Signs (Past 12 Hours) Vital Signs Temp Pulse Pulse Resp BP Pulse Ox O2 Del Method 02/11/25 07:36 36.6 C 69 16 153/89 H 92 Room Air 02/11/25 05:34 68 02/11/25 03:29 36.5 C 80 18 128/80 90 Room Air 02/10/25 23:29 36.6 C 73 18 146/80 H 92 Room Air
[2025-02-11] MEDS: ENOXAPARIN INJ 40 MG/0.4 ML SYR SQ SCH (10:09)
--- NOTE | 2025-02-11 12:51 | Electrocardiogram Report ---
Test Reason : Blood Pressure : */* mmHG Vent. Rate : 77 BPM Atrial Rate : 77 BPM P-R Int : 164 ms QRS Dur : 70 ms QT Int : 394 ms P-R-T Axes : 35 51 42 degrees QTcB Int : 445 ms Normal sinus rhythm Normal ECG When compared with ECG of 07-Feb-2025 03:57, No significant change was found Confirmed by Tony Gunn ([id number]) on 02/11/2025 12:51:16 PM Referred By: Confirmed By: Tony Gunn
[2025-02-11] MEDS: BACLOFEN 10 MG TAB PO SCH (13:20)
[2025-02-11] MEDS: MoRPHine SULFATE 2 MG/ML CARP IV PRN (17:12)
[2025-02-12 06:20] LABS: Hematocrit (blood only) 34.7 % (37.0-47.0); Hemoglobin 11.5 g/dl (12.0-16.0); Immature Granulocytes # (auto) 0.02 K/uL (0.01-0.20); Immature Granulocytes % (auto) 0.4 %; Mean Corpuscular Hemoglobin 29.3 pg (25.0-34.0); Mean Corpuscular Volume 88.3 fL (80.0-100.0); Platelet Count 190 K/uL (130-400); RDW Standard Deviation 42.2 fL (36.4-46.3); Red Blood Count 3.93 M/uL (4.20-5.40); White Blood Count 4.78 K/ul (4.8-10.8)
[2025-02-12 06:52] LABS: Anion Gap 8.0 (3-11); Blood Urea Nitrogen 7.0 mg/dl (6-23); Calcium 9.0 mg/dl (8.6-10.3); Carbon Dioxide 29.0 mmol/L (21-32); Chloride 105.0 mmol/L (98-107); Creatinine Clr Calc Pharmacy 88.0 ml/min; Glucose 92.0 mg/dl (70-99(Fasting)); Potassium 3.2 mmol/L (3.5-5.1); Sodium 142.0 mmol/L (136-145)
[2025-02-12] MEDS: POTASSIUM CHLORIDE CRTAB 20 MEQ TABCR PO STA (08:05)
[2025-02-12] MEDS: MAGNESIUM OXIDE 400 MG TAB PO SCH (08:06)
[2025-02-12] MEDS: LISINOPRIL/HCTZ 20/12.5MG 1 TAB TAB PO SCH (08:09)
--- NOTE | 2025-02-12 10:13 | Hospitalist Progress Note ---
Date of Service February 12, 2025 Assessment & Plan (1) Muscle spasm of both lower legs: (2) Restless leg syndrome: Plan: History of significant restless leg syndrome controlled with Requip 4 mg at night for many years Was in the hospital recently on second of this month with calf pain and the leg tube was decreased to 1.5 mg in a view to wean off and she was also given Cymbalta to pain control Patient presented to the hospital with headache and high blood pressure; reported recurrence of pain in her calf after getting Ativan in the ED. Continue on Requip 1.5 mg at bedtime; continue on baclofen and clonazepam as needed. Duloxetine and rosuvastatin stopped (3) Hypertensive urgency: Plan: During her last admission she was noted to have hypotension and her BP medication was discontinued except hydrochlorothiazide 12.5 mg Will start her on lisinopril hydrochlorothiazide combination monitor blood pressure (4) Migraine: Plan: Presented with headache which is better now and CT of the head was unremarkable Plan DVT prophylaxis subcu Lovenox Disposition- from home; will obtain PT/OT eval CODE STATUS full Admission and Anticipated Discharge Date Admission Date: February 10, 2025 Subjective Patient seen and examined at bedside. Reports that she is feeling slightly dizzy after receiving pain meds. Denies any calf spasm/pain. No significant events overnight Review of Systems Review of Systems: All systems reviewed & are unremarkable except as noted in Subjective Physical Exam Physical Exam: Constitutional: WD/WN, vitals as above, NAD, sitting up in bed, pleasant, conversing easily Respiratory: normal respiratory effort, lungs clear to auscultation, no wheeze, rales, rhonchi. Normal insp/exp effort, no accessory muscle use Cardiovascular: RRR, no murmur, no edema Vessels: no JVD or carotid bruit Chest: normal inspection of chest Abdomen: normal bowel sounds, soft, nontender, no hepatosplenomegaly Musculoskeletal: no cyanosis or clubbing, extremities motor strength 5/5 Skin: no rashes, warm and dry normal turgor Neurologic: PERRL, EOMI, accommodation nl, no face palsy, no dysarthria CN's II- XI intact bilaterally and moves all extremities Psychiatric: A+Ox3, euthymic affect Results & Data Results & Data Vital Signs (Past 12 Hours) Vital Signs Temp Pulse Pulse Resp BP Pulse Ox O2 Del Method 02/12/25 08:07 36.7 C 68 16 143/82 H 91 Room Air 02/12/25 06:57 67 02/12/25 03:29 36.5 C 88 18 120/70 97 Room Air 02/11/25 22:47 36.6 C 70 18 108/63 90 Room Air
[2025-02-12] MEDS: BACLOFEN 10 MG TAB PO PRN (21:28)
[2025-02-13 03:53] LABS: Appearance Urine Clear (Clear); Glucose Urine UA Negative (Negative)
[2025-02-13 07:48] VITALS: O2SAT 94
[2025-02-13] MEDS: ONDANSETRON INJ 2 MG/ML 2 ML VIAL IV PRN (08:34)
[2025-02-13 10:31] LABS: Hematocrit (blood only) 39.9 % (37.0-47.0); Hemoglobin 13.5 g/dl (12.0-16.0); Immature Granulocytes # (auto) 0.01 K/uL (0.01-0.20); Immature Granulocytes % (auto) 0.2 %; Mean Corpuscular Hemoglobin 29.6 pg (25.0-34.0); Mean Corpuscular Volume 87.5 fL (80.0-100.0); Platelet Count 195 K/uL (130-400); RDW Standard Deviation 42.5 fL (36.4-46.3); Red Blood Count 4.56 M/uL (4.20-5.40); White Blood Count 4.53 K/ul (4.8-10.8)
[2025-02-13 11:02] LABS: Anion Gap 10.0 (3-11); Blood Urea Nitrogen 10.0 mg/dl (6-23); Calcium 9.9 mg/dl (8.6-10.3); Carbon Dioxide 28.0 mmol/L (21-32); Chloride 102.0 mmol/L (98-107); Creatinine Clr Calc Pharmacy 74.0 ml/min; Glucose 106.0 mg/dl (70-99(Fasting)); Potassium 4.1 mmol/L (3.5-5.1); Sodium 140.0 mmol/L (136-145)
[2025-02-13 11:20] VITALS: BP 130/80; RESP 12; TEMP 97.9
[2025-02-13 12:18] VITALS: PULSE 75
--- NOTE | 2025-02-13 12:50 | Discharge Summary ---
Date of Service February 13, 2025 Admission HPI Per Admitting Provider She is a 64-year-old female with significant past medical history of significant restless leg syndrome 1 review of 40 mg at night for many many years, hypertension, hyperlipidemia, migraine apparently was in hospital recently admitted on 03-02 for severe calf pain and restless this syndrome. She was evaluated by neurologist and Cymbalta was prescribed and Requip was decreased to 1.5 mg daily on discharge. She has been complaining of increasing headache, dizziness and noted to have very high blood pressure at home and came to the emergency room. Her calf pain was ongoing but happened to be very severe in the emergency room that she was very restless even after getting morphine 4 mg IV and lorazepam 0.5 mg IV. During my examination she was having severe spasmodic pain in the calves and remain hypertensive though the headache has improved. She feels that she has been having side effect from Cymbalta and also withdrawal from Requip. she has been very unstable to discharge and was admitted for continuation of care. Admission Exam Per Admitting Provider Physical Exam: Cannot lie on the bed due to severe spasmodic pain in the calves that she needs to stand up and move the legs to ease the pain but not getting any better Constitutional: well developed, well nourished, + ill appearing and + obese Eyes: PERRL, conjunctivae normal, anicteric sclerae ENMT: external ear and nose normal, oropharynx normal Neck: trachea midline, no thyromegaly Respiratory: no respiratory distress Auscultation: lungs clear to auscultation bilaterally; no crackles Cardiovascular: Rate/Rhythm: regular rate, regular rhythm and + tachycardic Heart Sounds: normal S1, normal S2 and + murmur Extremities: + edema ( trace edema bilaterally) Gastrointestinal (Abdomen): Inspection/Auscultation: normal bowel sounds and + abdominal edema; abdomen not distended Percussion/Palpation: abdomen soft; abdomen nontender Musculoskeletal: No acute arthritis involving any of the joint. but tenderness in the calves Neurologic: normal touch/pain/proprioception, moves all extremities and + focal motor deficit Lymphatic: no cervical or axillary lymphadenopathy Principal Diagnosis (1) Muscle spasm of both lower legs: (2) Restless leg syndrome: Discharge Exam Constitutional: WD/WN, vitals as above, NAD, sitting up in bed, pleasant, conversing easily Respiratory: normal respiratory effort, lungs clear to auscultation, no wheeze, rales, rhonchi. Normal insp/exp effort, no accessory muscle use Cardiovascular: RRR, no murmur, no edema Vessels: no JVD or carotid bruit Chest: normal inspection of chest Abdomen: normal bowel sounds, soft, nontender, no hepatosplenomegaly Musculoskeletal: no cyanosis or clubbing, extremities motor strength 5/5 Skin: no rashes, warm and dry normal turgor Neurologic: PERRL, EOMI, accommodation nl, no face palsy, no dysarthria CN's II- XI intact bilaterally and moves all extremities Psychiatric: A+Ox3, euthymic affect Discharge Data Allergies Allergy/AdvReac Type Severity Reaction Status Date / Time Sulfa (Sulfonamide Allergy Intermediate Hives Verified 02/19/24 20:49 Antibiotics) diphenhydramine AdvReac Severe RESTLESS Verified 02/19/24 20:49 [From Benadryl] LEG FLARE UP Consultations 02/10/25 16:00 ED Decision to Admit Stat Ordered Studies 02/10/25 13:38 CT head/brain wo con Stat Hospital Course (1) Muscle spasm of both lower legs: (2) Restless leg syndrome: History of significant restless leg syndrome controlled with Requip 4 mg at night for many years Was in the hospital recently on second of this month with calf pain and the leg tube was decreased to 1.5 mg in a view to wean off and she was also given Cymbalta to pain control Patient presented to the hospital with headache and high blood pressure; reported recurrence of pain in her calf after getting Ativan in the ED. During the hospitalization, patient was continued on Requip 1.5 mg at bedtime; her spasms were managed with baclofen and clonazepam, as well as as needed oxycodone which resulted in resolution of pain/spasm. Rosuvastatin was kept on hold. Duloxetine which was started in previous hospitalization was stopped. Patient to follow-up closely with PCP. (3) Hypertensive urgency: During her last admission she was noted to have hypotension and her BP medication was discontinued except hydrochlorothiazide 12.5 mg. She presented with high blood pressure likely secondary to initiation of Cymbalta/pain. Patient reported increasing urinary frequency with hydrochlorothiazide. She was switched over to lisinopril 20 mg at discharge. (4) Migraine: Total Time Total Time Spent Total Time Spent (In Minutes): 45 Total Time Includes: Examination of the Patient, Discharge Planning, Medication Reconciliation, Communication With Other Providers and Other Discharge Plan Discharge Items Patient Disposition: Home - Self-Care Reason For Visit: SEVERE SMASMODIC CALF PAIN,HYPERTENSIVE URGENCY Discharge Diagnosis: (1) Muscle spasm of both lower legs: (2) Restless leg syndrome: Condition on Discharge: Fair Activity: Resume your previous activity Non-emergency contact: Primary Care Provider Call non-emergency contact if: you have any medication questions and your symptoms worsen Follow-up/Referrals: Renzo Rubin MD [Primary Care Provider] - (Date & Time 02/16/2025 11:40 AM Provider: Karen Monroe MD [facility], [facility] ) Diet: Regular Addtl Attending Provider Instructions: You were admitted to the hospital due to pain/spasm in your legs. Please continue to take previous dose of Requip that you were taking before that is 1.5 mg at night. You were prescribed oxycodone 2.5 mg to be taken as needed for increased pain. You are also prescribed muscle relaxant(baclofen) to be taken as needed for spasms. You are also prescribed magnesium supplement as it can help with the cramps. You were prescribed lisinopril 20 mg once a day for high blood pressure. Please stop taking hydrochlorothiazide. Please hold off on taking rosuvastatin until your cramps starts improving. Follow up with your PCP Pending Studies at Discharge: No Stand-Alone Forms: My [facility], Smoking Cessation Medications and DC Order Prescriptions: New magnesium oxide 400 mg (241.3 mg magnesium) Tablet 400 mg PO DAILY Qty: 30 0RF oxycodone 5 mg Tablet 2.5 mg PO HS PRN (Reason: pain) Qty: 10 0RF diclofenac sodium [Voltaren Arthritis Pain] 1 % Gel 4 g EXT BID Qty: 100 0RF baclofen 5 mg tablet 5 mg PO DAILY PRN (Reason: muscle spasm) Qty: 10 0RF lisinopril 20 mg tablet 20 mg PO DAILY Qty: 30 0RF Continued omeprazole 40 mg capsule,delayed release(DR/EC) 40 mg PO DAILYBB fluorometholone 0.1 % drops,suspension 1 drp OPB BID famotidine 20 mg tablet 20 mg PO BID lidocaine [Lidoderm] 5 % adhesive patch,medicated 1 patch topical DAILY PRN (Reason: Pain) Rx Instructions: leave on most painful area for up to 12 hrs 7/2- otc unable to verify mupirocin 2 % ointment 1 applic TOPICAL DIRECTED ropinirole 1 mg tablet 1 mg PO DAILY Rx Instructions: take with 0.5mg ropinirole 0.5 mg tablet 0.5 mg PO DAILY Rx Instructions: take with 1mg ondansetron 4 mg tablet,disintegrating 4 mg PO UD PRN (Reason: nausea and vomiting) clonazepam 0.25 mg Tablet,Disintegrating 0.25 mg PO Q8H PRN (Reason: spasms) Qty: 15 0RF Held rosuvastatin 20 mg tablet 20 mg PO QAM Hold Instructions: Resume on 02/21/25. Discontinued hydrochlorothiazide 12.5 mg capsule 12.5 mg PO DAILY Hold Instructions: Resume on 02/12/25. duloxetine 30 mg Capsule,Delayed Release(Dr/Ec) 30 mg PO QAM Qty: 30 0RF Discharge Orders: Discharge Order (Routine); Ordered 02/13/25 Ordered By: Daniel Lindsey Admission Data Admit Date/Time: 02/10/25 16:43 Attending Provider: Daniel Lindsey Admit Provider: Jared Vora Primary Care Provider: Renzo Rubin Other Providers: Jared Vora Other Interventions: Discharge Summary Assessment (RN) Last Done: 02/13/25 12:15
== END 2025-02-13 14:10 | disposition home or self-care (01) | DRG 556 ==
LOC: ED 11:00 → SUATTDRO 16:43 → INTOOBSV 16:43 → 2N 16:43